=== PATIENT | female | born 1955 | race Caucasian/White ===

== ENCOUNTER 2022-10-05 12:19 | Outpatient (OUT) | payer BC, MEDICARE, SELFPAY ==
--- NOTE | 2022-10-05 12:35 | VEIN_ITS ---
[address] [address] Patient Name: SANDY BOBO MRN: [id number] date: 1955 Sex: F Assigned Patient Location: Current Patient Location: Accession/Order Number: [id number] Exam Date: 10/05/2022 12:30 Report Date: 10/05/2022 14:01 At the request of: PAPA HUNTER Procedure: VC Endovenous Ablation 1VeinRT EXAMINATION: VC Endovenous Ablation 1VeinRT HISTORY: Pain due to varicose veins of bilateral legs I83.813 The risks and benefits of the procedure had been previously discussed, and were rediscussed at length. Informed written consent was obtained. SIMBA Ford RDMS, RVT assisted. Time out procedure was performed. The right lower extremity was prepared and draped in the usual sterile fashion to allow knee flexion in the sterile field. Duplex ultrasound probe was draped in a sterile cover, sterile transmission gel was used. Venous mapping was performed with the areas of dilation and large tributaries marked. The total length was 42 cm from the entry 6 cm above the medial malleolus to 3 cm below the saphenofemoral junction. The diameter of the greater saphenous vein ranged from 7 mm. A 30 gauge needle and 1% buffered lidocaine was used to anesthetize the entry site. A 4 mm incision was made with a scalpel and the saphenous vein was entered percutaneously under direct ultrasound guidance with a micropuncture set, a single stick was successful in gaining access. A micro-guide wire was inserted and the needle removed. A micro-set including a dilator was inserted over the microwire and the needle and dilator were removed. A guide wire was inserted through the micro-set and guided through the saphenous vein to the saphenofemoral junction. The dilator was removed and an introducer sheath was inserted over the wire until the end of the sheath entered the saphenofemoral junction. The dilator and wire were removed and the 600 micron fiber was introduced and placed and positioned so that it extended beyond the sheath and was 3 cm distal to the saphenofemoral femoral junction. Final position of the fiber was determined by ultrasound guidance and duplex imaging. Tumescent anesthetic was delivered by ultrasound guidance. 300 cc of fluid was delivered along the entire course of the saphenous vein. The solution consisted of 1000 cc of normal saline with 40 mL of 1% lidocaine and 20 mL of sodium bicarbonate. A final positioning check was made. The energy source was turned on by means of the foot pedal and the fiber and sheath were withdrawn. The total number of Joules delivered was 2506. The laser was active for 313seconds under continuous pulse, average laser use of 8 J. Laser start time 1318 hours, 10/05/2022. Laser stop time 1326 hours, 10/05/2022. A duplex ultrasound revealed compressibility and flow at the saphenofemoral junction immediately after the procedure. Hemostasis at the access site was achieved. The skin incision of the saphenous vein was closed with a 4 x 4. A compression stocking was applied. Postop instructions were given. A follow up appointment was recommended and scheduled. The patient tolerated the procedure well. Electronically authenticated by: ASHLEY METZGER Date: 10/05/2022 14:01
[2022-10-05] MEDS: LIDOCAINE HCL 10 ML, SODIUM BICARBONATE 1 MEQ INJ (13:18)
[2022-10-05] MEDS: 0.9 % SODIUM CHLORIDE 500 ML, LIDOCAINE HCL 20 ML, SODIUM BICARBONATE 10 MEQ INJ (13:19)
== END 2022-10-05 12:20 ==
LOC: VC 12:19
PROVIDERS: PCP Radiology Diagnostic Radiology; Visit Provider Radiology Diagnostic Radiology
DX: I83.813 Varicose veins of bilateral lower extremities with pain (principal)
CPT/HCPCS: 36478

== ENCOUNTER 2022-10-12 12:27 | Outpatient (OUT) | payer BC, MEDICARE, SELFPAY ==
--- NOTE | 2022-10-12 12:32 | VEIN_ITS ---
Patient: SANDY BOBO Exam Date: 10/12/2022 : 1955 Gender:F Ordering : DR GOLDY LAZO M.D. Admission #: [id number] Family : Order #: [id number] CLICK HERE TO VIEW EXAM RADIOLOGY REPORT PROCEDURE: [facility] FACILITY EST LMTD VEIN CENTER - OFFICE VISIT FOLLOW UP COMPARISON: None. PROGRESS NOTES: The patient reports no significant problems following intravenous laser ablation of the right great saphenous vein. The patient did not require oral analgesics. The patient has worn her compression stockings. The patient has followed our recommendations to walk 20-30 minutes once or twice per day since the procedure. The patient reports significant improvement in her initial presenting symptoms with persistent pain anterior bilateral lower legs. Review of the ultrasound performed the same day demonstrates occlusive thrombus extending throughout the treated right great saphenous vein with heat induced thrombus 2 cm from the saphenofemoral junction, see separate report, consistent with a successful ablation. No thrombus extending into or beyond the saphenofemoral junction. The patient expressed a desire to take a pause for healing. The patient was asked to return in 2-3 months for re-evaluation of the right small saphenous vein and left anterior accessory saphenous vein. The patient's insurance declined treatment with micro foam chemical ablation as well as injection sclerotherapy at this time. IMPRESSION: 1. Successful ablation of the right great saphenous vein 2. Persistent incompetent right small saphenous vein and left anterior accessory saphenous vein 3. Persistent incompetent varicose veins PLAN: Follow-up in 2-3 months Nurse notes, history and physical were reviewed and confirmed, see attached forms. The nurse was present throughout the physical exam and consultation Dictated by: Goldy Lazo MD on 10/12/2022 at 13:04 Approved by: Goldy Lazo MD on 10/12/2022 at 13:10
--- NOTE | 2022-10-12 12:32 | VEIN_ITS ---
Patient: SANDY BOBO Exam Date: 10/12/2022 : 1955 Gender:F Ordering : DR GOLDY LAZO M.D. Admission #: [id number] Family : Order #: [id number] CLICK HERE TO VIEW EXAM RADIOLOGY REPORT PROCEDURE: VC EXT VENOUS RT LMTD COMPARISON: None. INDICATIONS: Phlebitis of superficial veins of rt lower extremity I80.01 TECHNIQUE: Lower extremity diop scale and Duplex Doppler evaluation of the deep venous system from the inguinal ligament through the calf veins. FINDINGS: REGION: Right lower extremity. THROMBI: Negative for DVT. Heat induced thrombus in right GSV 2.0 cm from SFJ and extends to proximal lower leg. COMPRESSIBILITY: Non-compressible segments. FLOW: Areas of no flow. *Exam performed in accordance with [facility] practice guidelines- Peripheral venous ultrasound, July 23, 2009. CONCLUSION: Post ablation occlusion of the right great saphenous vein with heat induced thrombus 2 cm from the saphenofemoral junction Dictated by: Goldy Lazo MD on 10/12/2022 at 12:55 Approved by: Goldy Lazo MD on 10/12/2022 at 12:56
== END 2022-10-12 12:28 ==
LOC: VC 12:27
PROVIDERS: PCP Radiology Diagnostic Radiology; Visit Provider Radiology Diagnostic Radiology
DX: I80.01 Phlebitis and thrombophlebitis of superficial vessels of right lower extremity (principal)
CPT/HCPCS: 93971; G0463

== ENCOUNTER 2023-08-26 12:59 | Outpatient (OUT) | payer MEDICARE, OTHER, SELFPAY ==
--- NOTE | 2023-08-26 13:10 | VEIN_ITS ---
Patient Name: SANDY BOBO MR#: [id number] : 1955 Exam Date: 08/26/2023 Ordering Doctor: DR PAPA HUNTER M.D. RADIOLOGY REPORT PROCEDURE: [facility] FACILITY EST COMPREHENSIVE VEIN CENTER - OFFICE VISIT INITIAL COMPARISON: None. PROGRESS NOTES: [age] year old female who presents with a 30 year history of dilated bulging veins, discolored veins, leg pain, swelling, muscle cramping. The patient's leg symptoms are symmetric bilaterally. There has been a progression of symptoms over time. This increases with prolonged leg dependency. The patient describes an improvement with rest, elevation, exercise, support stockings. The patient denies any signs and symptoms to suggest arterial ischemia. The patient describes a family history varicose veins on paternal side. The patient has drinking and smoking history of occasional alcohol consumption. No tobacco use. Patient has a past medical history significant for hypertension. The patient denies a history of deep venous thrombus or pulmonary embolus. See separate history and physical for medication list. Prior treatment for varicose veins. Current use of compression stockings. After review of nurse notes, history and physical exam I discussed at length the pathophysiology of venous hypertension and possible treatments, therapies and strategies available. We discussed at length the importance of elevating the lower extremities above the level of the heart, increased physical activity and compression stocking use. Ultrasound venous reflux study performed today was discussed at length with the patient. The report demonstrates abnormally dilated and incompetent right small saphenous vein and right anterior accessory saphenous vein with multiple incompetent branch saphenous varicosities. Prior closure of thigh portion of right great saphenous vein and the length of the left great saphenous vein. Dilated and incompetent branch saphenous varicosities bilaterally. PHYSICAL EXAM: The right leg demonstrates several varicosities, numerous spider veins, no ulceration, mild edema, minimal skin discoloration. The left leg demonstrates several varicosities, numerous spider veins, no ulceration, mild edema, minimal skin discoloration. Both thighs, legs and feet were symmetrically warm to the touch. Good posterior tibial and dorsalis pedis pulses were present bilaterally. VEIN/VC Facility EST Comprehensive IMPRESSION: 1. Bilateral lower extremity venous insufficiency 2. Bilateral lower extremity varicose veins 3. Mild bilateral lower extremity subcutaneous edema 4. No flow significant arterial disease 5. CEAP: C3, EC, AP, [place] PLAN: 1. Continued use of compression stockings 2. Elevated legs and increased physical activity symptomatic relief 3. Endovenous laser ablation of right small saphenous and right anterior accessory saphenous veins. 4. Microfoam chemical ablation of incompetent branch saphenous varicosities bilaterally. 5. Bilateral sclerotherapy for numerous spider veins. Nurse notes, history and physical were reviewed and confirmed, see attached forms. The nurse was present throughout the physical exam and consultation Dictated by: Waldemar Herrera M.D. on 08/26/2023 at 14:26 Approved by: Waldemar Herrera M.D. on 08/26/2023 at 14:31
--- NOTE | 2023-08-26 13:10 | VEIN_ITS ---
Patient Name: SANDY BOBO MR#: [id number] : 1955 Exam Date: 08/26/2023 Ordering Doctor: DR PAPA HUNTER M.D. RADIOLOGY REPORT PROCEDURE: VC EXT VENOUS REFLUX NERY LMTD COMPARISON: None. INDICATIONS: Pain due to varicose veins of bilateral legs I83.813 TECHNIQUE: Duplex imaging of the lower extremity to assess the deep and superficial venous system for the presence of deep or superficial venous incompetence and to document the location and severity of disease. The study includes evaluation of the great saphenous vein (GSV), anterior accessory saphenous vein (AASV) and small saphenous vein (SSV). Patient scanned in reverse Trendelenburg and standing. FINDINGS: RIGHT LOWER EXTREMITY: Saphenofemoral Junction Reflux: Yes 10.0mm 3.9 sec GSV: Diam (mm) Reflux/ Time (sec) Proximal Thigh 4.7 Yes 1.0 Mid Thigh N/A Distal Thigh N/A Prox Calf 3.2 Yes 4.1 Mid Calf 1.7 Yes 1.4 Saphenopopliteal Junction Reflux: 6.1mm Yes 0.6 SSV: Proximal Calf 5.5 Yes 3.1 Mid Calf 2.2 Yes 0.8 AASV: Proximal Thigh 6.3 Yes 1.3 Mid Thigh 2.5 Yes 0.6 Distal Thigh Thrombi: No acute or chronic thrombus. Compressibility: Normal. Flow: Mild deep venous reflux. Preforator: Prox medial lower leg 2.7 mm with 0.3s reflux. Distal medial lower leg 3.6 mm with 0.6s reflux. Tech Note: Previously treated GSV. Incompetent varicose vein proximal posterior calf off SSV 3.5 mm with 0.7s reflux. LEFT LOWER EXTREMITY: Saphenofemoral Junction Reflux: Yes 10.6 mm 1.9 sec GSV: Diam (mm) Reflux/Time (sec) Proximal Thigh 4.9 Yes 0.2 Mid Thigh N/A Distal Thigh N/A Prox Calf N/A Mid Calf N/A Saphenopopliteal Junction Relux: 6.2 mm Yes 1.8 SSV: Proximal Calf 2.8 Yes 0.3 Mid Calf 3.2 Yes 0.2 AASV: Proximal Thigh 4.6 Yes 0.3 Mid Thigh 3.1 Yes 2.2 Distal Thigh Thrombi: No acute or chronic thrombus. Compressibility: Normal. Flow: Mild-moderate deep venous reflux. Top Screw: Mid medial lower leg 4.2 mm with 4.9s reflux. Mid medial lower leg 4.3 mm with 3.4s reflux. Tech Note: Previously treated GSV. Incompetent varicose vein medial knee measures 4.5mm with 4.5s reflux. Varicose vein proximal medial lower leg measures 5.6 mm with 4.4s reflux. CONCLUSION: 1. Abnormally dilated incompetent right small saphenous and anterior accessory saphenous veins. 2. Dilated and incompetent branch saphenous varicosities within bilateral lower extremities. Dictated by: Waldemar Herrera M.D. on 08/26/2023 at 14:12 Approved by: Waldemar Herrera M.D. on 08/26/2023 at 14:26
== END 2023-08-26 13:00 | disposition home or self-care (01) ==
LOC: VC 13:00
PROVIDERS: PCP Radiology Diagnostic Radiology; Visit Provider Radiology Diagnostic Radiology
DX: I83.813 Varicose veins of bilateral lower extremities with pain (principal)
CPT/HCPCS: 93970; G0463

== ENCOUNTER 2023-09-06 10:28 | Outpatient (OUT) | payer MEDICARE, OTHER, SELFPAY ==
[2023-09-06] MEDS: LIDOCAINE HCL 1% 100 MG/10 ML MDV INJ (10:31)
[2023-09-06] MEDS: 0.9 % SODIUM CHLORIDE 500 ML, LIDOCAINE HCL 20 ML, SODIUM BICARBONATE 10 MEQ INJ (10:31)
--- NOTE | 2023-09-06 10:32 | VEIN_ITS ---
The [address] [address] Patient Name: SANDY BOBO MRN: [id number] date: 1955 Sex: F Assigned Patient Location: Current Patient Location: Accession/Order Number: [id number] Exam Date: 09/06/2023 10:37 Report Date: 09/06/2023 12:56 At the request of: PAPA HUNTER Procedure: VC Endovenous Ablation 1VeinRT EXAMINATION: VC Endovenous Ablation 1VeinRT HISTORY: I83.813 Pain due to varicose veins of bilateral legs The risks and benefits of the procedure had been previously discussed, and were rediscussed at length. Informed written consent was obtained. López Colvin RN and Ashlee Coon RDMS assisted. Time out procedure was performed. The right lower extremity was prepared and draped in the usual sterile fashion to allow knee flexion in the sterile field. Duplex ultrasound probe was draped in a sterile cover, sterile transmission gel was used. Venous mapping was performed with the areas of dilation and large tributaries marked. The total length was 20 cm from the entry 6 cm above the ankle to 4 cm below the Saphenofemoral junction. The diameter of the right small saphenous vein ranged from 5.5 mm. A 30 gauge needle and 1% buffered lidocaine was used to anesthetize the entry site. A 4 mm incision was made with a scalpel and the saphenous vein was entered percutaneously under direct ultrasound guidance with a micropuncture set, a single stick was successful in gaining access. A micro-guide wire was inserted and the needle removed. A micro-set including a dilator was inserted over the microwire and the needle and dilator were removed. A guide wire was inserted through the micro-set and guided through the saphenous vein to the saphenofemoral junction. The dilator was removed and an introducer sheath was inserted over the wire until the end of the sheath entered the saphenofemoral junction. The dilator and wire were removed and the 600 micron fiber was introduced and placed and positioned so that it extended beyond the sheath and was 3 cm distal to the saphenofemoral or saphenopopliteal junction. Final position of the fiber was determined by ultrasound guidance and duplex imaging. Tumescent anesthetic was delivered by ultrasound guidance. 125 cc of fluid was delivered along the entire course of the saphenous vein. The solution consisted of 1000 cc of normal saline with 40 mL of 1% lidocaine and 20 mL of sodium bicarbonate. A final positioning check was made. The energy source was turned on by means of the foot pedal and the fiber and sheath were withdrawn. The total number of Joules delivered was 1037. The laser was active for 130 seconds under continuous pulse, average laser use of 8 J. Laser start time: 11:12 AM Laser stop time: 11:15 AM Date: 09/06/2023. A duplex ultrasound revealed compressibility and flow at the saphenofemoral junction immediately after the procedure. Hemostasis at the access site was achieved. The skin incision of the saphenous vein was closed with a 4 x 4. A compression stocking was applied. Postop instructions were given. A follow up appointment was recommended and scheduled. The patient tolerated the procedure well. Electronically authenticated by: ASHLEY METZGER Date: 09/06/2023 12:56
--- OUTSIDE RECORDS SUMMARY | 2023-09-06 10:50 | XMS_ITS | CCD ---
Author Organization [facility] Care Team Providers Care 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 Name Role Phone ELSA, DR PAPA Agrawal Attending Unavailable WEST, DR PAPA Agrawal Admitting Unavailable WEST, DR PAPA Agrawal Attending Unavailable WEST, DR PAPA Agrawal Admitting Unavailable WEST, DR PAPA Agrawal Consulting Unavailable DOMENICA, DR WALDEMAR More Consulting Unavailable WEST, DR PAPA Agrawal Attending Unavailable WEST, DR PAPA Agrawal Admitting Unavailable WEST, DR PAPA Agrawal Consulting Unavailable WEST, DR PAPA Agrawal Attending Unavailable WEST, DR PAPA Agrawal Admitting Unavailable WEST, DR PAPA Agrawal Consulting Unavailable DOMENICA, DR WALDEMAR More Consulting Unavailable WEST, DR PAPA Agrawal Admitting Unavailable WEST, DR PAPA Agrawal Attending Unavailable Papa Whitehead MD Primary Care Provider PAPA WHITEHEAD Referring Unavailable DEFRANCE, PAPA Avila Primary Care Unavailable DEFBUTCH, PAPA Avila Attending Unavailable DEFBUTCH, PAPA Avila Referring Unavailable DEFRANCE, PAPA Avila Primary Care Unavailable DEFRANCE, PAPA Avila Attending Unavailable DEFBUTCH, PAPA Avila Referring Unavailable DEFRANCE, PAPA Avila Primary Care Unavailable Medications Current Medications Medication Drug Class(es) Dates Sig (Normalized) Sig (Original) amphetamine aspartate 2.5 mg / amphetamine sulfate 2.5 mg / dextroamphetamine saccharate 2.5 mg / dextroamphetamine sulfate 2.5 mg oral tablet (5 sources) Central Nervous System Stimulant Start: 06-14-2023 take 1 tablet by mouth once daily at bedtime dextroamphetamine- amphetamine (ADDERALL) 10 mg tablet Indications: Attention deficit hyperactivity disorder (ADHD), predominantly inattentive type Take 1 tablet (10 mg total) by mouth in the morning and at bedtime. Max Daily Amount: 20 mg 60 tablet 0 06/14/2023 Active Start: 04-05-2023 End: 06-14-2023 take 1 tablet by mouth once daily at bedtime dextroamphetamine-amphetamine (ADDERALL) 10 mg tablet Indications: Attention deficit hyperactivity disorder (ADHD), predominantly inattentive type Take 1 tablet (10 mg total) by mouth in the morning and at bedtime. Max Daily Amount: 20 mg 60 tablet 0 05/10/2023 06/14/2023 Discontinued (Reorder) betamethasone 0.5 mg/ml / clotrimazole 10 mg/ml topical cream (3 sources) Azole Antifungal, Corticosteroid Start: 01-14-2023 clotrimazole-betamethasone (LOTRISONE) cream Apply topically 2 (two) times a day. 30 g 4 01/14/2023 Active docosahexaenoic acid/epa (FISH OIL ORAL) (2 sources) docosahexaenoic acid/epa (FISH OIL ORAL) Take by mouth. 0 Active estrogens, conjugated (skilled nursing) 0.9 mg oral tablet (4 sources) Estrogen Start: 07-10-2023 take 1 tablet by mouth once daily in the morning PREMARIN 0.9 mg tablet take one tablet by mouth every morning 90 tablet 3 07/10/2023 Active Start: 01-14-2023 End: 07-10-2023 take 1 tablet by mouth in the morning estrogens, conjugated, (PREMARIN) 0.9 mg tablet Take 1 tablet (0.9 mg total) by mouth in the morning. 90 tablet 1 01/14/2023 07/10/2023 Discontinued gluc/chnd/om3/dha/epa/fish/s tr (GLUCOSAMINE CHONDROITIN PLUS ORAL) (2 sources) gluc/chnd/om3/dh a/epa/fish/str (GLUCOSAMINE CHONDROITIN PLUS ORAL) Take by mouth. 0 Active hydroCHLOROthiazide 25 mg / triamterene 37.5 mg oral capsule (3 sources) Potassium- sparing Diuretic, Thiazide Diuretic S t a r t : 1 2 - 1 4 - 2 0 2 3 take 1 capsule by mouth once daily in the morning triamterene-hydroCHLOROthiazide (DYAZIDE) 37.5-25 mg per capsule TAKE ONE CAPSULE BY MOUTH EVERY MORNING 90 capsule 1 04/11/2023 Active NON FORMULARY (2 sources) NON FORMULARY be rberine 0 Active pantoprazole 40 mg delayed release oral tablet (2 sources) Proton Pump Inhibitor S t a r t : 0 2 - 1 6 - 2 0 2 4 take 1 tablet by mouth in the morning pantoprazole (PROTONIX) 40 mg EC tablet Take 1 tablet (40 mg total) by mouth in the morning. 30 tablet 1 06/14/2023 Active tirzepatide, weight loss, (ZEPBOUND) 2.5 mg/0.5 mL pen injector (2 sources) S t a r t : 0 2 - 1 6 - 2 0 2 4 inject 2.5 mg by subcutaneous injection every week tirzepatide, weight loss, (ZEPBOUND) 2.5 mg/0.5 mL pen injector Indications: BMI 34.0-34.9,adult Inject 2.5 mg under the skin once a week. 2 mL 5 06/14/2023 Active Problems Active Problems Problem Classification Problem Date Documented Da te Episodic/Chronic Attention-deficit, conduct, and disruptive behavior disorders (2 sources) Attention deficit hyperactivity disorder, predominantly inattentive type; Translations: [Attention-deficit hyperactivity disorder, predominantly inattentive type] 05-10-2023 Chronic Attention-deficit, conduct, and disruptive behavior disorders (1 source) Attention-deficit hyperactivity disorder, predominantly inattentive type; Translations: [Attention-deficit hyperactivity disorder, predominantly inattentive type] Onset: 4 Chronic Essential hypertension (6 sources) Benign essential hypertension; Translations: [Essential (primary) hypertension] Onset: 8 11-27-2017 Chronic Other nutritional; endocrine; and metabolic disorders (4 sources) Body mass index 30+ - obesity; Translations: [Body mass index (BMI) 32.0-32.9, adult] Onset: 8 11-27-2017 Chronic Other nutritional; endocrine; and metabolic disorders (3 sources) Morbid obesity; Translations: [Morbid (severe) obesity due to excess calories] Onset: 3 05-24-2022 Chronic Other nutritional; endocrine; and metabolic disorders (2 sources) Body mass index (BMI) 34.0-34.9, adult; Translations: [Body mass index (BMI) 34.0-34.9, adult] Onset: 4 Chronic Other nutritional; endocrine; and metabolic disorders (1 source) Morbid (severe) obesity due to excess calories; Translations: [Morbid (severe) obesity due to excess calories] Onset: 3 Chronic Other skin disorders (1 source) Onycholysis; Translations: [Onycholysis] Onset: 4 Episodic Phlebitis; thrombophlebitis and thromboembolism (4 sources) Phlebitis and thrombophlebitis of superficial vessels of left lower extremity; Translations: [PHLEBITIS AND TP SUP VES LT LOW EXT] Onset: 3 Episodic Unclassified (1 source) Annual Exam Onset: 4 Varicose veins of lower extremity (4 sources) Varicose veins of bilateral lower extremities with pain; Translations: [VARICOSE VNS NERY LOW EXTREM W/PAIN] Onset: 3 Episodic Past or Other Problems Problem Classification Problem Date Documented Da te Episodic/Chronic Mood disorders (3 sources) Mood disorders Onset: 12-07-2022 Resolved: 06-14-2023 12-07-2022 Unclassified (3 sources) Onset: 01-26-2021 01-26-2021 Results Test Name Value Interpretation Reference Range Facil ity CBC AND AUTO DIFFon 06-18-19 ABSOLUTE BASOPHIL 0.0 X10E9/L Normal 0.0-0.2 [facility] Comment on above: Performed By: #### C BOLIVAR 02857-5, THYR, CBCA #### [facility] ([id number]) [address], [address] [place] [address] ABSOLUTE NEUTROPHIL 4.3 X10E9/L Normal 1.5-6.6 [facility] Comment on above: Performed By: #### Roberth LUTZ 32851-5, THYR, CBCA #### [facility] ([id number]) [address], [address] [place] [address] Basophils/100 WBC (Bld) 0.4 % Normal [facility] Comment on above: Performed By: #### C BOLIVAR, 44290-9, THYR, CBCA #### [facility] ([id number]) [address] [place] [address] Eosinophils (Bld) [#/Vol] 0.1 10*3/uL Normal 0.0-0.4 [facility] Comment on above: Performed By: #### C BOLIVAR 83365-9, THYR, CBCA #### [facility] ([id number]) [address], [address] [place] [address] Eosinophils/100 WBC (Bld) 1.3 % Normal [facility] Comment on above: Performed By: #### C BOLIVAR, 05494-3, THYR, CBCA #### [facility] ([id number]) [address], [facility] [address] [place] [address] Erythrocyte distribution width (RBC) [Ratio] 13.4 % Normal 11.5-15.0 [facility] Comment on above: Performed By: #### C BOLIVAR 43149-5, THYR, CBCA #### [facility] ([id number]) [address] [address] [place] [address] Hematocrit (Bld) [Volume fraction] 41.7 % Normal 35-47 [facility] Comment on above: Performed By: #### C BOLIVAR, 15500-8, THYR, CBCA #### [facility] ([id number]) [address], [facility] [address] [place] [address] Hemoglobin (Bld) [Mass/Vol] 14.1 g/dL Normal 11.7-15.5 [facility] Comment on above: Performed By: #### C BOLIVAR, 60648-7, THYR, CBCA #### [facility] ([id number]) [address], [facility] [address] [place] [address] Lymphocytes (Bld) [#/Vol] 3.4 10*3/uL Normal 1.0-3.5 [facility] Comment on above: Performed By: #### C BOLIVAR, 42295-8, THYR, CBCA #### [facility] ([id number]) [address] [address] [place] [address] Lymphocytes/100 WBC (Bld) 41.3 % Normal [facility] Comment on above: Performed By: #### C BOLIVAR, 39722-6, THYR, CBCA #### [facility] ([id number]) [address], [address] [place] [address] MCH (RBC) [Entitic mass] 28.5 pg Normal 27-34 [facility] Comment on above: Performed By: #### C BOLIVAR, 95381-3, THYR, CBCA #### [facility] ([id number]) [address], [address] [place] [address] MCHC (RBC) [Mass/Vol] 33.8 g/dL Normal 32-36 [facility] Comment on above: Performed By: #### C BOLIVAR, 44483-3, THYR, CBCA #### [facility] ([id number]) [address], [address] [place] [address] MCV (RBC) [Entitic vol] 84 fL Normal 80-100 [facility] Comment on above: Performed By: #### C BOLIVAR, 26523-3, THYR, CBCA #### [facility] ([id number]) [address], [address] [place] [address] Monocytes (Bld) [#/Vol] 0.4 10*3/uL Normal 0-0.9 [facility] Comment on above: Performed By: #### C BOLIVAR, 89946-9, THYR, CBCA #### [facility] ([id number]) [address], [address] [place] [address] Monocytes/100 WBC (Bld) 4.4 % Normal [facility] Comment on above: Performed By: #### C BOLIVAR, 80959-2, THYR, CBCA #### [facility] ([id number]) [address] [address] [place] [address] Neutrophils/100 WBC (Bld) 52.6 % Normal [facility] Comment on above: Performed By: #### C BOLIVAR, 22630-9, THYR, CBCA #### [facility] ([id number]) [address], [address] [place] [address] Platelet mean volume (Bld) [Entitic vol] 7.8 fL Normal 7-12 [facility] Comment on above: Performed By: #### C BOLIVAR, 28714-0, THYR, CBCA #### [facility] ([id number]) [address], [address] [place] [address] Platelets (Bld) [#/Vol] 292 10*3/uL Normal 150-450 [facility] Comment on above: Performed By: #### C BOLIVAR, 90046-0, THYR, CBCA #### [facility] ([id number]) [address], [address] [place] [address] RBC COUNT 4.94 X10E12/L Normal 3.80-5.20 [facility] Comment on above: Performed By: #### C BOLIVAR, 53281-6, THYR, CBCA #### [facility] ([id number]) [address], [address] [place] [address] WBC (Bld) [#/Vol] 8.2 10*3/uL Normal 4.0-11.0 [facility] Comment on above: Performed By: #### C BOLIVAR, 21091-6, THYR, CBCA #### [facility] ([id number]) [address], [address] [place] [address] COMPREHENSIVE METABOLIC PANE Willie 06-18-2023 Albumin [Mass/Vol] 4.1 g/dL Normal 3.2-5.3 [facility] Comment on above: Performed By: #### C BOLIVAR, 35633-3, THYR, CBCA #### [facility] ([id number]) [address] [address] [place] [address] ALP [Catalytic activity/Vol] 110 U/L Normal 39-130 [facility] Comment on above: Performed By: #### C BOLIVAR, 32357-8, THYR, CBCA #### [facility] ([id number]) [address], [address] [place] [address] ALT [Catalytic activity/Vol] 15 U/L Normal 0-31 [facility] Comment on above: Performed By: #### C BOLIVAR, 97354-3, THYR, CBCA #### [facility] ([id number]) [address], [address] [place] [address] Anion gap [Moles/Vol] 9 mmol/L Normal 5-15 [facility] Comment on above: Performed By: #### C BOLIVAR, 91691-2, THYR, CBCA #### [facility] ([id number]) [address], [address] [place] [address] AST [Catalytic activity/Vol] 15 U/L Normal 0-41 [facility] Comment on above: Performed By: #### C BOLIVAR, 95700-3, THYR, CBCA #### [facility] ([id number]) [address], [address] [place] [address] Bilirubin [Mass/Vol] 0.6 mg/dL Normal 0.3-1.2 [facility] Comment on above: Performed By: #### C BOLIVAR, 10377-3, THYR, CBCA #### [facility] ([id number]) [address], [address] [place] [address] Calcium [Mass/Vol] 8.8 mg/dL Normal 8.5-10.5 [facility] Comment on above: Performed By: #### C BOLIVAR, 64254-4, THYR, CBCA #### [facility] ([id number]) [address], [address] [place] [address] Chloride [Moles/Vol] 104 mmol/L Normal 98-109 [facility] Comment on above: Performed By: #### C BOLIVAR 35460-1, THYR, CBCA #### [facility] ([id number]) [address] [address] [place] [address] CO2 [Moles/Vol] 28 mmol/L Normal 22-32 [facility] Comment on above: Performed By: #### C BOLIVAR 63270-1, THYR, CBCA #### [facility] ([id number]) [address] [address] [place] [address] Creatinine [Mass/Vol] 0.66 mg/dL Normal 0.40-1.00 [facility] Comment on above: Result Comment: METH OD TRACEABLE TO IDMS STANDARD Performed By: #### C BOLIVAR 40710-6, THYR, CBCA #### [facility] ([id number]) [address] [address] [place] [address] eGFR (CKD-EPI) NON-RACE DEPENDENT >90 Normal >59 [facility] Comment on above: Result Comment: Reported eGFR is based on the CKD-EPI 2020 equation that does not use a race coefficient. Performed By: #### Roberth LUTZ 62131-4, THYR, CBCA #### [facility] ([id number]) [address] [address] [place] [address] Glucose [Mass/Vol] 100 mg/dL High 65-99 [facility] Comment on above: Performed By: #### C BOLIVAR 28569-8, THYR, CBCA #### [facility] ([id number]) [address] [address] [place] [address] Potassium [Moles/Vol] 3.8 mmol/L Normal 3.5-5.0 [facility] Comment on above: Performed By: #### C BOLIVAR 27781-7, THYR, CBCA #### [facility] ([id number]) [address], [address] [place] [address] Protein [Mass/Vol] 7.0 g/dL Normal 6.0-8.0 [facility] Comment on above: Performed By: #### C BOLIVAR 00521-4, THYR, CBCA #### [facility] ([id number]) [address], [address] [place] [address] Sodium [Moles/Vol] 141 mmol/L Normal 134-146 [facility] Comment on above: Performed By: #### Roberth LUTZ 66742-2, THYR, CBCA #### [facility] ([id number]) [address], [facility] [address] [place] [address] Urea nitrogen [Mass/Vol] 15 mg/dL Normal 5-27 [facility] Comment on above: Performed By: #### Roberth LUTZ 55442-1, THYR, CBCA #### [facility] ([id number]) [address], [address] [place] [address] Lipid 1996 panelon 4 Cholesterol [Mass/Vol] 151 mg/dL Normal 150-200 [facility] Comment on above: Performed By: #### Roberth LUTZ 91100-9, THYR, CBCA #### [facility] ([id number]) [address], [address] [place] [address] Cholesterol in HDL [Mass/Vol] 68 mg/dL Normal >39 [facility] Comment on above: Result Comment: HDL <40 mg/dL - High Risk HDL > or = 40mg/dL- Desirable HDL >60 mg/dL - Negative Risk Performed By: #### C BOLIVAR, 16203-7, THYR, CBCA #### [facility] ([id number]) [address], [address] [place] [address] Cholesterol in LDL [Mass/Vol] 52 mg/dL Normal <130 [facility] Comment on above: Result Comment: LDL <100 mg/dL - Desirable LDL >160 mg/dL - High Risk Performed By: #### C BOLIVAR 43165-7, THYR, CBCA #### [facility] ([id number]) [address] [address] [place] [address] Cholesterol in VLDL [Mass/Vol] 31 mg/dL High 0-30 [facility] Comment on above: Performed By: #### C BOLIVAR 76980-1, THYR, CBCA #### [facility] ([id number]) [address], [facility] [address] [place] [address] CHOLESTEROL:HDL 2.2 Normal 1.0-5.0 [facility] Comment on above: Performed By: #### C BOLIVAR, 37540-2, THYR, CBCA #### [facility] ([id number]) [address], [facility] [address] [place] [address] Triglyceride [Mass/Vol] 157 mg/dL High 27-150 [facility] Comment on above: Performed By: #### C BOLIVAR 27649-6, THYR, CBCA #### [facility] ([id number]) [address], [facility] [address] [place] [address] THYROID PROFILEon 06-18-2023 Free T4 [Mass/Vol] 0.85 ng/dL Normal 0.61-1.60 [facility] Comment on above: Performed By: #### C BOLIVAR 62438-1, THYR, CBCA #### [facility] ([id number]) [address] [address] [place] [address] TSH 2.32 uIU/mL Normal 0.49-4.67 [facility] Comment on above: Performed By: #### C BOLIVAR 08523-5, THYR, CBCA #### [facility] ([id number]) [address] [place] [address] VC CONSULT FOLLOWUPon 2022 VC CONSULT FOLLOWUP Patient: SARA MALDONADO I Exam Date: 09/06/2022 : 1955 Gender:F Ordering : DR PAPA HUNTER M.D. Admission #: [id number] Family : Order #: [id number] CLICK HERE TO VIEW EXAM RADIOLOGY REPORT PROCEDURE: VEIN CENTER CONSULTATION FOLLOWUP VEIN CENTER - OFFICE VISIT FOLLOW UP COMPARISON: None. PROGRESS NOTES: The patient reports improvement in leg symptoms. There has been interval reduction in varicosities. The patient has followed our recommendations to walk 20-30 minutes once or twice per day since the procedure. Physical exam demonstrates decrease in varicosities of the left leg. Persistent varicosities are identified along the legs bilaterally. Review of the ultrasound performed the same day demonstrates occlusive thrombus extending throughout the treated vein, see separate report, consistent with a successful ablation. No thrombus extending into or beyond the saphenofemoral junction. The patient expressed a desire to proceed with treatment of remaining incompetent veins. The patient was informed that treatment was a process and would require several procedures/sessions. IMPRESSION: 1. Successful ablation of the left great saphenous vein 2. Persistent incompetent, dilated veins and bilateral lower extremity symptoms PLAN: Endovenous laser ablation of right great saphenous vein. Nurse notes, history and physical were reviewed and confirmed, see attached forms. The nurse was present throughout the physical exam and consultation Dictated by: Waldemar Herrera M.D. on 09/06/2022 at 14:36 Approved by: Waldemar Herrera M.D. on 09/06/2022 at 14:53 Normal [facility] VC EXT VENOUS LT LIMITEDon 0 09-06-2022 VC EXT VENOUS LT LIMITED Patient: SANDY MALDONADO Exam Date: 09/06/2022 : 1955 Gender:F Ordering : DR PAPA HUNTER M.D. Admission #: [id number] Family : Order #: [id number] CLICK HERE TO VIEW EXAM RADIOLOGY REPORT PROCEDURE: VEIN CENTER EXTREMITY VENOUS LEFT LIMITED COMPARISON: None. INDICATIONS: Phlebitis of superficial veins of lower extremity I80.02 TECHNIQUE: Lower extremity diop scale and Duplex Doppler evaluation of the deep venous system from the inguinal ligament through the calf veins. FINDINGS: REGION: Left lower extremity. THROMBI: Negative for DVT. Heat induced thrombus visualized 1.3 cm from the SFJ. The heat induced thrombus extends from groin to distal thigh. COMPRESSIBILITY: Non-compressible segments. FLOW: Areas of no flow. OTHER: CONCLUSION: 1. Successful post ablation occlusion of left great saphenous vein. Dictated by: Waldemar Herrera M.D. on 09/06/2022 at 14:58 Approved by: Waldemar Herrera M.D. on 09/06/2022 at 15:02 Normal [facility] VC ENDOVENOUS ABL 1ST V LTon 08-31-2022 VC ENDOVENOUS ABL 1ST V LT Patient: SANDY MALDONADO Exam Date: 08/31/2022 : 1955 Gender:F Ordering : DR PAPA HUNTER M.D. Admission #: [id number] Family : Order #: [id number] CLICK HERE TO VIEW EXAM RADIOLOGY REPORT PROCEDURE: VEIN CENTER ENDOVENOUS ABLATION FIRST VEIN LEFT COMPARISON: VC VENOUS REFLUX NERY LMT, 07/06/2022. INDICATIONS: Pain co-occurrent and due to varicose veins of bilateral legs I83.813 OPERATIVE REPORT: The risks and benefits of the procedure had been previously discussed, and were rediscussed at length. Informed written consent was obtained by nj and López Colvin assisted. Time out procedure was performed. The left lower extremity was prepared and draped in the usual sterile fashion to allow knee flexion in the sterile field. Duplex ultrasound probe was draped in a sterile cover, sterile transmission gel was used. Venous mapping was performed with the areas of dilation and large tributaries marked. The total length was 32 cm from the entry distal to 3 cm below the saphenofemoral junction. The diameter of the greater saphenous vein ranged from 9 mm. A 30 gauge needle and 1% buffered lidocaine was used to anesthetize the entry site. A 4 mm incision was made with a scalpel and the saphenous vein was entered percutaneously under direct ultrasound guidance with a micropuncture set, a single stick was successful in gaining access. A micro-guide wire was inserted and the needle removed. A micro-set including a dilator was inserted over the microwire and the needle and dilator were removed. A 0.018 guide wire was inserted through the micro-set and threaded through the saphenous vein to the saphenofemoral junction. The dilator was removed and an introducer sheath was inserted over the wire until the end of the sheath entered the saphenofemoral junction. The dilator and wire were removed and the 600 micron fiber was introduced and placed and positioned so that it extended beyond the sheath and was 3 cm peripheral to the saphenofemoral femoral junction. Final position of the fiber was determined by ultrasound guidance and duplex imaging. Tumescent anesthetic was delivered by ultrasound guidance. Two hundred cc of fluid was delivered along the entire course of the saphenous vein. The solution consisted of 500 cc of normal saline with 20mL of 1% lidocaine and 10 mL of sodium bicarbonate. A final positioning check was made. The energy source was turned on by means of the foot pedal and the fiber and sheath were withdrawn. The total number of Joules delivered was 1842. The laser was active for 230 seconds under continuous pulse, average laser use of 8 J. Laser start time 1:48 p.m. August 31, 2022. Laser stop time 1:53 p.m. August 31, 2022. A duplex ultrasound revealed compressibility and flow at the saphenofemoral junction immediately after the procedure. Hemostasis at the access site was achieved. The skin incision of the saphenous vein was closed with a 4 x 4. A compression stocking was applied. Postop instructions were given. A follow up appointment was recommended and scheduled. The patient tolerated the procedure well and was discharged in good condition. CONCLUSION: 1. Technically successful endovenous laser ablation of the left great saphenous vein. Dictated by: Waldemar Herrera M.D. on 08/31/2022 at 14:39 Approved by: Waldemar Herrera M.D. on 08/31/2022 at 14:41 [facility] VC COMP CONSULTATIONon 07-06 VC COMP CONSULTATION Patient: DO CHRISTIAN MALDONADO Exam Date: 07/06/2022 : 1955 Gender:F Ordering : DR PAPA HUNTER M.D. Admission #: [id number] Family : Order #: [id number] CLICK HERE TO VIEW EXAM RADIOLOGY REPORT PROCEDURE: VC VEIN CENTER CONSULTATION VEIN CENTER - OFFICE VISIT INITIAL COMPARISON: None. PROGRESS NOTES: 66-year-old female who presents with a 4-5 year history lower extremity pain swelling and varicose veins. The patient rates pain as a 6 on a scale of 1-10. The patient describes the pain as aching heaviness itching. The patient's pain is exacerbated by prolonged sitting and partially relieved by rest, leg elevation, exercise, support stockings and over the counter Tylenol. The patient has worn stockings for several years. 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 This standing significantly exacerbates her pain and edema. The patient does exercise doing spin classes 3 times per week. The patient denies any signs and symptoms to suggest arterial ischemia. The patient describes a family history of varicose veins father and paternal grandmother. Hypertension, heart disease and stroke in her father. , 8 grandkids. Social alcohol, no smoking history, no illicit drug abuse. No history of deep venous thrombus or pulmonary embolus. See separate history and physical for medication list. Prior injection sclerotherapy for spider veins. Nursing notes were reviewed. After review of history and physical exam I discussed at length the pathophysiology of venous hypertension and possible treatments, therapies and strategies available. We discussed at length the importance of elevating the lower extremities above the level of the heart, increased physical activity and compression stocking use. Ultrasound venous reflux study performed the same day was discussed at length with the patient. The report demonstrates moderate to severe bilateral great saphenous vein, moderate right small and left anterior accessory saphenous vein insufficiency and dilatation. Bilateral incompetent varicose veins. PHYSICAL EXAM: The right leg demonstrates moderate varicose, reticular and spider veins. No active ulceration. Mild subcutaneous edema, no skin discoloration. The left leg demonstrates moderate varicose, reticular and spider veins. No active ulceration. Mild subcutaneous edema, no skin discoloration. Both thighs, legs and feet were symmetrically warm to the touch. Good posterior tibial and dorsalis pedis pulses were present bilaterally. IMPRESSION: 1. Bilateral great, right small and left anterior accessory saphenous vein venous insufficiency 2. Moderate bilateral lower extremity varicose veins 3. Mild bilateral lower extremity subcutaneous edema 4. No definite flow significant arterial disease 5. CEAP: C3, Ep, Asp, Pr PLAN: 1. Endovenous laser ablation left great, right great, right small and left anterior accessory saphenous veins 2. Bilateral microfoam chemical ablation of incompetent varicose veins 3. [facility] use of continued use of compression stockings 4. Elevated legs and increased physical activity for symptomatic relief Nurse notes, history and physical were reviewed and confirmed, see attached forms. The nurse was present throughout the physical exam and consultation Dictated by: Papa Hunter MD on 07/06/2022 at 12:57 Approved by: Papa Hunter MD on 07/06/2022 at 13:14 [facility] VC VENOUS REFLUX NERY LMTon 0 07-06-2022 VC VENOUS REFLUX NERY LMT Patient: SANDY MALDONADO Exam Date: 07/06/2022 : 1955 Gender:F Ordering : DR PAPA HUNTER M.D. Admission #: [id number] Family : Order #: [id number] CLICK HERE TO VIEW EXAM RADIOLOGY REPORT PROCEDURE: VEIN CENTER ULTRASOUND VENOUS REFLUX BILATERAL LIMTED COMPARISON: None. INDICATIONS: Pain co-occurrent and due to varicose veins of bilateral legs I83.813 TECHNIQUE: Duplex imaging of the lower extremity to assess the deep and superficial venous system for the presence of deep or superficial venous incompetence and to document the location and severity of disease. The study includes evaluation of the great saphenous vein (GSV), anterior accessory saphenous vein (AASV) and small saphenous vein (SSV). Patient scanned in reverse Trendelenburg and standing. FINDINGS: RIGHT LOWER EXTREMITY: Saphenofemoral Junction Reflux: Yes 9.1mm 4.8 sec GSV: Diam (mm) Reflux/ Time (sec) Proximal Thigh 7.2 Yes 1.2 Mid Thigh 6.5 Yes 0.5 Distal Thigh 5.5 Yes 0.8 Prox Calf 4.1 Yes 4.6 Mid Calf 3.1 Yes 1.0 Saphenopopliteal Junction Reflux: 6.2mm Yes 0.5 SSV: Proximal Calf 5.8 Yes 1.1 Mid Calf 3.9 Yes 2.1 AASV: Not present Thrombi: No acute or chronic thrombus. Compressibility: Normal. Flow: Deep venous reflux. Preforator: Distal/med lower leg 4.1 mm with 1.2s reflux. Prox/med calf 3.6 mm with 0.7s reflux. Tech Note: Incompetent varicose vein mid anterior thigh off GSV measures 3.5 mm with 0.5s reflux. Proximal medial lower leg varicosity measures 4.7 mm with 3.3s reflux. LEFT LOWER EXTREMITY: Saphenofemoral Junction Reflux: Yes 10.5 mm 3.0 sec GSV: Diam (mm) Reflux/Time (sec) Proximal Thigh 9.1 Yes 1.4 Mid Thigh 7.7 Yes 1.5 Distal Thigh 5.5 Yes 4.1 Prox Calf 3.1 Yes 0.4 Mid Calf 4.3 Yes 0.9 Saphenopopliteal Junction Relux: 4.0 mm Yes 0.3 SSV: Proximal Calf 3.1 No Mid Calf 2.9 Yes 0.2 AASV: Proximal Thigh 5.5 Yes 3.0 Mid Thigh 2.7 Yes 1.3 Distal Thigh Thrombi: No acute or chronic thrombus. Compressibility: Normal. Flow: Deep venous reflux. Service Parts Coordinator: Mid medial lower leg 4.7 mm with 4.7s reflux. Dist medial lower leg 4.2 mm with 4.7s reflux. Tech Note: Incompetent varicose vein proximal/medial lower leg measures 6.1 mm with 4.8s reflux. Distal medial thigh varicose vein measures 4.9 mm with 4.9s reflux. Distal anterior thigh varicose vein measures 3.4 mm with 4.4s reflux. CONCLUSION: 1. Moderate to severe bilateral great saphenous vein venous insufficiency with associated dilatation, left greater than right 2. Moderate right small saphenous and left anterior accessory saphenous vein venous insufficiency with associated dilatation 3. Bilateral incompetent varicose veins Dictated by: Papa Hunter MD on 07/06/2022 at 12:38 Approved by: Papa Hunter MD on 07/06/2022 at 12:40 [facility] Vital Signs Date Time Vital Sign Value Performing Clinician Facility 06-14-2023 [id number] Body height 161.3 cm Papa Whitehead MD Work Phone: [facility] 06-14-2023 09:11-0500 Body mass index (BMI) [Ratio] 34 kg/m2 Papa Whitehead MD Work Phone: [facility] 06-14-2023 09:11-0500 Body temperature 96.49 [degF] Papa Whitehead MD Work Phone: [facility] 06-14-2023 09:11-0500 Body weight 88.45 kg Papa Whitehead MD Work Phone: [facility] 06-14-2023 09:11-0500 Diastolic blood pressure 88 mm[Hg] Papa Whitehead MD Work Phone: [facility] 06-14-2023 09:11-0500 Heart rate 80 /min Papa Whitehead MD Work Phone: [facility] 06-14-2023 09:11-0500 Respiratory rate 16 /min Papa Whitehead MD Work Phone: [facility] 06-14-2023 09:11-0500 Systolic blood pressure 130 mm[Hg] Papa Whitehead MD Work Phone: [facility] Encounters Encounter Date Encounter Type Care Provider Facility Start: 08-13-2023 End: 08-13-2023 ambulatory [facility] Start: 07-10-2023 Refjing Claudio Work Phone: [facility] Start: 06-18-2023 End: 06-19-2023 ambulatory [facility] Start: 06-14-2023 End: 06-14-2023 ambulatory [facility] Start: 06-14-2023 Encounter for genera l adult medical examination without abnormal findings [facility] Start: 06-14-2023 End: 06-14-2023 Patient encounter procedure Papa Whitehead MD Work Phone: [facility] Comment on above: Routine general medi rajat examination at a health care facility (Primary Dx); Attention deficit hyperactivity disorder (ADHD), predominantly inattentive type; Essential hypertension, benign; BMI 34.0-34.9,adult Start: 06-14-2023 End: 06-14-2023 Patient encounter status Papa Whitehead MD Work Phone: [facility] Work Phone: Start: 05-10-2023 Refill Papa hackett MD Work Phone: [facility] Comment on above: Attention deficit hy peractivity disorder (ADHD), predominantly inattentive type Start: 10-12-[address] PAPA HUNTER Facilit y:[facility] Start: 10-05-[address] PAPA HUNTER Facilit y:[facility] Start: 09-06-2022 End: 09-07-[address] PAPA HUNTER Facility:[facility] Start: 08-31-2022 End: 09-01-[address] PAPA HUNTER Facility:[facility] Start: 07-06-2022 End: 07-07-[address] PAPA HUNTER Facility:[facility] Procedures Date Procedure Procedure Detail Performing Clinician Start: 08-13-2023 Follow-up visit Follow-up PAPA WHITEHEAD Start: 06-14-2023 Adult depression scr eening assessment Papa Whitehead MD Work Phone: Start: 12-07-2022 Adult depression scr eening assessment Papa Whitehead MD Work Phone: Start: 03-03-2010 Colonoscopy Papa balderrama MD Work Phone: Plan of Treatment Date Care Activity Detail Author Start: 06-14-2024 Adult BMI Screening Adult BMI Screen ing [facility] Start: 06-14-2024 Depression Screening Depression Scre ening [facility] Start: 06-14-2024 Fall Risk Screening Fall Risk Screen ing [facility] Start: 06-14-2024 Medicare Annual Well ness Visit Medicare Annual Wellness Visit [facility] Start: 06-14-2024 Tobacco Screening Tobacco Screening [facility] Start: 03-11-2024 Adult BMI Screening Adult BMI Screen ing [facility] Start: 12-08-2023 Depression Screening Depression Scre ening [facility] Start: 12-08-2023 Fall Risk Screening Fall Risk Screen ing [facility] Start: 12-08-2023 Tobacco Screening Tobacco Screening [facility] Start: 08-13-2023 End: 08-13-2023 Patient encounter procedure 08/13/2023 9:15 AM EDT Office Visit [facility] [address] [place] [address] Papa Whitehead MD [address] [place], [place] [id number] [facility] Start: 06-14-2023 End: 06-13-2024 CBC W Auto Differential panel - Blood CBC auto differential Lab Routine Essential hypertension, benign BMI 34.0-34.9,adult Expected: 06/14/2023, Expires: 06/13/2024 [facility] Work Phone: Comment on above: Expected: 06/14/2023 , Expires: 06/13/2024 Start: 06-14-2023 End: 06-13-2024 Comprehensive metabolic 2000 panel - Serum or Plasma Comprehensive metabolic panel Lab Routine Essential hypertension, benign BMI 34.0-34.9,adult Expected: 06/14/2023, Expires: 06/13/2024 [facility] Comment on above: Expected: 06/14/2023 , Expires: 06/13/2024 Start: 06-14-2023 End: 06-13-2024 Lipid 1996 panel - Serum or Plasma Lipid profile Lab Routine Essential hypertension, benign BMI 34.0-34.9,adult Expected: 06/14/2023, Expires: 06/13/2024 [facility] Comment on above: Expected: 06/14/2023 , Expires: 06/13/2024 Start: 06-14-2023 End: 06-13-2024 Thyroid profile includes TSH FT4 Thyroid profile includes TSH FT4 Lab Routine Essential hypertension, benign BMI 34.0-34.9,adult Expected: 06/14/2023, Expires: 06/13/2024 [facility] Comment on above: Expected: 06/14/2023 , Expires: 06/13/2024 Start: 06-14-2023 End: 06-14-2023 Patient encounter procedure 06/14/2023 9:15 AM EST Office Visit [facility] [address] [place] [address] Papa Whitehead MD [address] [place] [address] [facility] Start: 12-28-2022 COVID-19 Vaccine ( season) COVID-19 Vaccine ( season) [facility] Start: 03-18-2022 DTaP,Tdap and Td Vaccines (2 - Td or Tdap) DTaP,Tdap and Td Vaccines (2 - Td or Tdap) [facility] Start: 03-03-2015 Screening for malign ant neoplasm of colon Colonoscopy [facility] Start: 12-23-2005 Administration of varicella zoster vaccine Zoster (Shingles) Vaccine (1 of 2) [facility] Start: 12-23-1973 Adult BMI Follow Up Plan Adult BMI Follow Up Plan [facility] Start: 1955 Medicare Annual Well ness Visit Medicare Annual Wellness Visit [facility] Immunizations Immunization Date Immunization Notes Care Provider Fa [facility] 02-05-2023 Influenza, injectabl e, Madin Hien Canine Kidney, preservative free, quadrivalent Papa Whitehead MD Work Phone: [facility] 01-19-2022 Influenza, injectabl e, Madin Hien Canine Kidney, preservative free, quadrivalent Papa Whitehead MD Work Phone: [facility] 01-18-2021 influenza, injectabl e, quadrivalent, preservative free Papa Whitehead MD Work Phone: [facility] 05-26-2020 COVID-19, mRNA, LNP- S, PF, 100mcg/0.5mL Dose Papa Whitehead MD Work Phone: [facility] 04-28-2020 COVID-19, mRNA, LNP- S, PF, 100mcg/0.5mL Dose Papa Whitehead MD Work Phone: [facility] 01-26-2020 Seasonal, quadrivale nt, recombinant, injectable influenza vaccine, preservative free Papa Whitehead MD Work Phone: [facility] 02-06-2018 influenza virus vacc ine, unspecified formulation Papa Whitehead MD Work Phone: [facility] 02-06-2018 influenza, injectabl e, quadrivalent, preservative free Papa Whitehead MD Work Phone: [facility] 02-24-2014 influenza virus vacc ine, unspecified formulation Papa Whitehead MD Work Phone: [facility] 02-24-2014 influenza, injectabl e, quadrivalent, contains preservative Papa Whitehead MD Work Phone: [facility] 03-18-2012 influenza virus vacc ine, unspecified formulation Papa Whitehead MD Work Phone: [facility] 03-18-2012 influenza, seasonal, injectable Papa Whitehead MD Work Phone: [facility] 03-18-2012 tetanus toxoid, redu tran diphtheria toxoid, and acellular pertussis vaccine, adsorbed Papa Whitehead MD Work Phone: [facility] 04-27-2009 novel influenza-H1N1 -09, all formulations Papa Whitehead MD Work Phone: [facility] 04-27-2009 novel influenza-H1N1 -09, preservative-free, injectable Papa Whitehead MD Work Phone: [facility] 02-22-2009 novel influenza-H1N1 -09, all formulations Papa Whitehead MD Work Phone: [facility] 02-22-2009 novel Influenza-H1N1 -09, live virus for nasal administration Papa Whitehead MD Work Phone: [facility] Payers Date Payer Category Payer Private Health Insurance [facility] SUPPLEMENT [id number] 2023-Present [phone] [id number] [place] [address] [id number] 2023 Unknown [id number] 2021 Medicare MEDICARE MEDICAR E PART A & B [id number] 2021-Present [phone] [address] [place] [address] [id number] 1959 Medicare [id number] 1959 Unknown [id number] 1955 Unknown [id number] 1955 Unknown [id number] 1955 Unknown [id number] 1955 Unknown [id number] 1955 Unknown [id number] 1955 Unknown [id number] 1955 Unknown [id number] 1955 Unknown [id number] Social History Date Type Detail Facility Start: 04-13-2022 Tobacco smoking status NHIS Ex-smoker [facility] End: 04-29-1969 [facility] use [facility] End: 04-29-1969 History of tobacco use [facility] Start: 04-13-2022 End: 06-14-2023 Cigarettes smoked current (pack per day) [facility] Start: 04-13-2022 Tobacco use and exposure Smokeless tobacco [facility] Start: 03-11-2023 End: 06-14-2023 Alcohol intake Current drinker of alcohol (finding) [facility] Start: 04-13-2022 End: 06-14-2023 Social connection and isolation panel [facility] Do you belong to any clubs or organizations such as uatsdin groups, unions, fraternal or athletic groups, or school groups? Yes [facility] Are you now , , , , never or living with a partner? [facility] How often to you hav e a drink containing alcohol? 2-4 times a month [facility] How many standard dr inks containing alcohol do you have on a typical day? 1 or 2 [facility] How often do you hav e 6 or more drinks on 1 occasion? Never [facility] How hard is it for y ou to pay for the very basics like food, housing, medical care, and heating Not hard at all [facility] Do you feel stress - tense, restless, nervous, or anxious, or unable to sleep at night because your mind is troubled all the time - these days [OSQ] Only a little [facility] Start: 12-13-2020 Education 18 [facility] Start: 1955 Sex Assigned At Female [facility] Start: 01-29-2022 Gender identity Identifies as female gender (finding) [facility] Start: 01-29-2022 Sexual orientation Heterosexual (finding) [facility] Note 07-10-2023 Telephone Encounter - Corina Medrano LPN - 07/10/2023 6:23 AM EDT Note Date & Type Note Facility 07-10-2023 Miscellaneous Notes Formattin g of this note might be different from the original. Raymon requesting refill of Premarin documented in this encounter [facility] Telephone encounter Note 07-10-2023 Telephone Encounter - Corina Medrano LPN - 07/10/2023 6:23 AM EDT Note Date & Type Note Facility 07-10-2023 Telephone encount er Note [facility] requesting refill of Premarin [facility] History of Present illness Narrative 06-14-2023 Papa Whitehead MD - 06/14/2023 9:15 AM EST Note Date & Type Note Facility 06-14-2023 History of Present illness Narrative Images from the original note were not included. [id number] [facility] [address] Subjective: Sandy Maldonado is a 67 y.o. female who presents for a Medicare Annual Wellness exam. The following portions of the patient's history were reviewed and updated as appropriate: Health Risk Assessment, allergies, past medical history, past surgical history, social history, family history, and immunization history Accompanied by: self History Provided By: self Language and Other Communication Barriers: Primary Language Spoken: Honduran Highest Level of Education Completed: college graduate Are You Happy With How Well You Read? yes Diet and Physical Activity: Current Prescribed Diet: Other: reducing How would you describe the condition of your mouth and teeth, including false teeth and dentures? Good Exercise Frequency: Daily Types of Exercise: Walking Health Risk Assessment: Cognitive Screening Do you have trouble remembering or recalling facts or events?: (!) Yes Do family members or caregivers report that you have difficulty remembering things?: No Depression Screening Little interest or pleasure in doing things: Not at all Feeling down, depressed, or hopeless: Not at all Trouble falling or staying asleep, or sleeping too much: Not at all Feeling tired or having little energy: Not at all Poor appetite or overeating: Not at all Feeling bad about yourself - or that you are a failure or have let yourself or your family down: Not at all Trouble concentrating on things, such as reading the newspaper or watching television: Not at all Moving or speaking so slowly that other people could have noticed. Or the opposite - being so fidgety or restless that you have been moving around a lot more than usual: Not at all Thoughts that you would be better off , or of hurting yourself in some way: Not at all End of Life Planning Do you have a living will?: (!) No Do you have a durable power of biochemistry professor?: (!) No Hearing Assessment Do you strain or struggle to hear/understand conversations?: No Do you have trouble hearing the television or radio when others do not?: No Does your family ever voice concerns about your hearing?: No Do you wear hearing aid/s?: No Lifestyle Assessment Do you smoke or use smokeless tobacco?: No If you smoke or use smokeless tobacco, are you ready to quit?: NA Are you exposed to secondhand smoke?: No On average, how many drinks of alcohol do you consume in a week?: 1 or less Do you exercise for 30 or more minutes on average at least 3 days a week?: Sometimes Do you have any tooth, denture, or oral problems?: No Do you snore or has anyone told you that you snore?: (!) Yes Do you try to eat a balanced diet?: Yes Do you experience leakage of urine, also known as urinary incontinence?: (!) Sometimes Do you have difficulty performing any of these activities? (check all that apply): None Do you have difficulty performing any of these activities? (check all that apply): None Personal Health During the past 4 weeks, how would you rate your overall health?: Very Good Do you understand how to take all of your medications?: Yes How confident are you that you can control and manage most of your health problems?: Very confident In the past 12 months, how many times have you been hospitalized?: None Safety Assessment Do you have throw rugs on the floor?: (!) Yes Do you feel safe at your home?: Yes Do you feel unsteady when walking?: No Are you having difficulty with driving?: No Do you have trouble seeing?: No What assistive device do you use? (check all that apply): None Vitals: Vitals: 06/14/23 0911 BP: 130/90 Pulse: 80 Resp: 16 Temp: (!) 35.8 C (96.5 F) Body mass index is 34 kg/m . History: Hospitalizations during the past 12 months: no Patient Active Problem List Diagnosis Date Noted Obesity, morbid ([facility]) 05/24/2022 BMI 32.0-32.9,adult 11/27/2017 Essential hypertension, benign 11/27/2017 Past Medical History: Diagnosis Date Depression Hypertension PONV (postoperative nausea and vomiting) Past Surgical History: Procedure Laterality Date ABLATION THERMAL DILATION AND CURETTAGE OF UTERUS OOPHORECTOMY VAGINAL HYSTERECTOMY 2013 Family History Problem Relation Age of Onset Cancer Paternal Grandmother Ovarian cancer Paternal Grandmother Heart disease Father Stroke Father Hypertension Father Breast cancer Neg Hx Anesthesia problems Neg Hx Social History Tobacco Use Smoking status: Former Packs/day: 1.00 Years: 7.00 Additional pack years: 0.00 Total pack years: 7.00 Types: Cigarettes Quit date: 1970 Years since quittin.1 Smokeless tobacco: Never Substance Use Topics Alcohol use: Yes Alcohol/week: 2.0 standard drinks of alcohol Types: 2 Glasses of wine per week Allergies: No Known Allergies Current Outpatient Medications Medication Sig Dispense Refill clotrimazole-betamethasone (LOTRISONE) cream Apply topically 2 (two) times a day. 30 g 4 docosahexaenoic acid/epa (FISH OIL ORAL) Take by mouth. estrogens, conjugated, (PREMARIN) 0.9 mg tablet Take 1 tablet (0.9 mg total) by mouth in the morning. 90 tablet 1 gluc/chnd/om3/dha/epa/fish/str (GLUCOSAMINE CHONDROITIN PLUS ORAL) Take by mouth. NON FORMULARY berberine triamterene-hydroCHLOROthiazide (DYAZIDE) 37.5-25 mg per capsule TAKE ONE CAPSULE BY MOUTH EVERY MORNING 90 capsule 1 dextroamphetamine-amphetamine (ADDERALL) 10 mg tablet Take 1 tablet (10 mg total) by mouth in the morning and at bedtime. Max Daily Amount: 20 mg 60 tablet 0 pantoprazole (PROTONIX) 40 mg EC tablet Take 1 tablet (40 mg total) by mouth in the morning. 30 tablet 1 tirzepatide, weight loss, (ZEPBOUND) 2.5 mg/0.5 mL pen injector Inject 2.5 mg under the skin once a week. 2 mL 5 No current facility-administered medications for this visit. Immunization History Administered Date(s) Administered COVID-19, mRNA, LNP-S, PF, 100mcg/0.5mL Dose 04/28/2020, 05/26/2020, 02/24/2021 H1N1 All Forms 02/22/2009, 04/27/2009 H1N1 Inj Preservative Free 04/27/2009 H1N1 Nasal 02/22/2009 Influenza, Im Trivalent Preservative 03/18/2012 Influenza, Injectable, Mdck, Preservative Free, Quad 01/19/2022, 02/05/2023 Influenza, Injectable, Quadrivalent 02/24/2014 Influenza, Injectable, quadrivalent (PF) 02/06/2018, 01/18/2021 Influenza, Recombinant, Quadrivalent, Injectable, Preserv 01/26/2020 Influenza, Unspecified 03/18/2012, 02/24/2014, 02/06/2018 Tdap 03/18/2012 Medication Adherence: Original 4-item [place] Scale Do you ever forget to take your medicine? no Are you careless at times about taking your medicine? no When you feel better, do you sometimes stop taking your medicine? no Sometimes if you feel worse when you take your medicine, do you stop taking it? no Score: 4 Scoring: high-low; yes=0 no=1. Range 0-4. By reversing the wording of four questions about the way patients might experience drug omissions, the sum of yes answers would provide a composite measure of non-adherence. Higher scores indicate higher adherence. Cognitive Screening: Clock Drawing Test: Normal Mini-Cog: Patient Concerns for Cognitive Function: no Family Concerns for Cognitive Function: no Sensory Screening: Hearing right ear: normal Hearing left ear: normal Can you hear what a person says without seeing his/her face, if spoken in a normal voice from across the room? Yes Can you hear what a person says without seeing his/her face, if that person whispers to you from across a room? Yes Do you use a hearing aid: No Review of Systems: Review of Systems Constitutional: Concerned about weight Respiratory: Negative. Cardiovascular: Negative. Gastrointestinal: Positive for abdominal pain. Genitourinary: Negative. Musculoskeletal: Positive for arthralgias and myalgias. Neurological: Negative. Objective: Physical Exam Orders Only on 10/06/2021 Component Date Value Ref Range Status External Cholesterol 10/04/2021 174 200 Final External Cholesterol:Hdl 10/04/2021 2.6 4.44 Final External Hdl Cholesterol 10/04/2021 66 39 Final External Ldl (Calc) 10/04/2021 73 100 Final External Triglycerides 10/04/2021 173 (A) 149 Final External Very Low Lipoprotein 10/04/2021 35 (A) 30 Final Advanced Directives: Living Will: No DPA for Health Care: No Discussion and Summary: Risk findings: none Personalized Prevention Plan Services: Specialty Evaluation Advised:N/A Preventative Programs Recommended: N/A Prevention Counseling and Education Materials:N/A Diseases: N/A Immunizations: N/A Nutrition: N/A Activity/Exercise/Safety/Misc: N/A The above recommendations were discussed with the patient. Medicare Available Services: Medicare Available Services Admin of Pneumococcal Vaccine: Recommended Admin of influenza vaccine: Completed Admin of Hep B vaccine: Not applicable AAA ultrasound screening: Not applicable Screening mammography: Completed Screening pap and pelvic exam: Not applicable Prostate cancer screening: Not applicable Colorectal cancer screening tests: Completed DM outpatient self management training services: Not applicable Bone mass measurements: Completed Screening for glaucoma: Completed Cardiovascular screening blood tests: Recommended DM screening blood tests: Recommended Smoking cessation counseling: Completed Counseling to prevent tobacco use: Completed Screening/counseling to reduce alcohol misuse: Completed Behavioral therapy for obesity: Not applicable STI infection screening and behavioral counseling: Not applicable Medical nutrition therapy services for DM: Not applicable Medical nutrition therapy services: Not applicable Copy to patient and copy in patient's medical record. Assessment/Plan: Sandy Maldonado has been seen for a well visit today. Preventative recommendations were reviewed. Any chronic conditions that have been addressed include those listed below. Sandy was seen today for annual exam. Diagnoses and all orders for this visit: Routine general medical examination at a health care facility Attention deficit hyperactivity disorder (ADHD), predominantly inattentive type - dextroamphetamine-amphetamine (ADDERALL) 10 mg tablet; Take 1 tablet (10 mg total) by mouth in the morning and at bedtime. Max Daily Amount: 20 mg Essential hypertension, benign - CBC auto differential; Future - Comprehensive metabolic panel; Future - Lipid profile; Future - Thyroid profile includes TSH FT4; Future BMI 34.0-34.9,adult - CBC auto differential; Future - Comprehensive metabolic panel; Future - Lipid profile; Future - Thyroid profile includes TSH FT4; Future - tirzepatide, weight loss, (ZEPBOUND) 2.5 mg/0.5 mL pen injector; Inject 2.5 mg under the skin once a week. Other orders - pantoprazole (PROTONIX) 40 mg EC tablet; Take 1 tablet (40 mg total) by mouth in the morning. Follow Up: Fasting labs Mammogram and cologard utd Pantoprazole 40mg 1 qd - consider UGI and US abd Zepbound rx Recheck in 2m documented in this encounter [facility] Instructions 06-14-2023 Patient Instructions Note Date & Type Note Facility 06-14-2023 Instructions Papa Whitehead MD - 06/14/2023 9:15 AM EST Medicare Available Services Admin of Pneumococcal Vaccine: Recommended Admin of influenza vaccine: Completed Admin of Hep B vaccine: Not applicable AAA ultrasound screening: Not applicable Screening mammography: Completed Screening pap and pelvic exam: Not applicable Prostate cancer screening: Not applicable Colorectal cancer screening tests: Completed DM outpatient self management training services: Not applicable Bone mass measurements: Completed Screening for glaucoma: Completed Cardiovascular screening blood tests: Recommended DM screening blood tests: Recommended Smoking cessation counseling: Completed Counseling to prevent tobacco use: Completed Screening/counseling to reduce alcohol misuse: Completed Behavioral therapy for obesity: Not applicable STI infection screening and behavioral counseling: Not applicable Medical nutrition therapy services for DM: Not applicable Medical nutrition therapy services: Not applicable documented in this encounter [facility] Note 05-10-2023 Telephone Encounter - Corina Medrano LPN - 05/10/2023 1:33 PM EST Note Date & Type Note Facility 05-10-2023 Miscellaneous Notes Formattin g of this note might be different from the original. Patient via [facility] requesting refill of Adderall to [facility] documented in this encounter [facility] Telephone encounter Note 05-10-2023 Telephone Encounter - Corina Medrano LPN - 05/10/2023 1:33 PM EST Note Date & Type Note Facility 05-10-2023 Telephone encount er Note Patient via [facility] requesting refill of Adderall to [facility] Evaluation note Note Date & Type Note Facility Evaluation note Diagnosis Attention deficit hyperactivity disorder (ADHD), predominantly inattentive type documented in this encounter [facility] Evaluation note Note Date & Type Note Facility Evaluation note Diagnosis Routine general medical examination at a health care facility- Primary Attention deficit hyperactivity disorder (ADHD), predominantly inattentive type Essential hypertension, benign BMI 34.0-34.9,adult documented in this encounter [facility] Instructions Note Date & Type Note Facility Instructions Not on filedocumented in this en counter [facility] Instructions Note Date & Type Note Facility Instructions Not on filedocumented in this en counter [facility] Summary Purpose Family History No Family History Records FoundNo Family History Records FoundNo Family History Records Found Advance Directives No Advanced Directives Records FoundNo Advanced Directives Records FoundNo Advanced Directives Records Found Additional Source Comments INFORMATION SOURCE (unrecogn ized section and content) DATE CREATED AUTHOR 09/13/2022 [facility] DATE CREATED AUTHOR AUTHOR'S ORGANIZ ATION 06/19/2023 [facility] DATE CREATED AUTHOR AUTHOR'S ORGANIZ ATION 08/14/2023 [facility] Reason for Visit (unrecogniz ed section and content) Reason Onset Date Comments Med Refill 05/10/2023 Reason Comments Annual Exam Medicare Wellness Reason Comments Med Refill Care Teams (unrecognized sec tion and content) 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 Relationship Specialty Start Date End Date Papa Whitehead MD [address] [place] [address] PCP - General Family Medicine 07/24/16 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 This clinical summary was aggregated from multiple sources. Caution should be exercised in using it in the provision of clinical care. This summary normalizes information from multiple sources, and as a consequence, information in this document may materially change the coding, format and clinical context of patient data. In addition, data may be omitted in some cases. CLINICAL DECISIONS SHOULD BE BASED ON THE PRIMARY CLINICAL RECORDS. [facility]. provides no warranty or guarantee of the accuracy or completeness of information in this document.
== END 2023-09-06 10:29 | disposition home or self-care (01) ==
LOC: VC 10:28
PROVIDERS: PCP Radiology Diagnostic Radiology; Visit Provider Radiology Diagnostic Radiology
DX: I83.813 Varicose veins of bilateral lower extremities with pain (principal)
CPT/HCPCS: 36478

== ENCOUNTER 2023-09-13 09:59 | Outpatient (OUT) | payer MEDICARE, OTHER, SELFPAY ==
--- NOTE | 2023-09-13 10:01 | VEIN_ITS ---
Patient Name: SANDY BOBO MR#: [id number] : 1955 Exam Date: 09/13/2023 Ordering Doctor: DR GOLDY LAZO M.D. RADIOLOGY REPORT PROCEDURE: VC EXT VENOUS RT LMTD COMPARISON: VC EXT VENOUS RT LMTD, 10/12/2022. INDICATIONS: Phlebitis of superficial veins of rt lower extremity I80.01 TECHNIQUE: Lower extremity diop scale and Duplex Doppler evaluation of the deep venous system from the inguinal ligament through the calf veins. FINDINGS: REGION: Right lower extremity. THROMBI: Negative for DVT. Heat induced thrombus visualized 2.0cm from the SPJ. The heat induced thrombus extends from SPJ to mid calf. COMPRESSIBILITY: Non-compressible segments corresponding to thrombus FLOW: Normal waveform and antegrade flow between 5 and 20 cm/s.Areas of no flow corresponding to thrombus CONCLUSION: Post ablation occlusion of the right small saphenous vein with heat induced thrombus 2 cm from the saphenopopliteal junction Dictated by: Goldy Lazo MD on 09/13/2023 at 10:14 Approved by: Goldy Lazo MD on 09/13/2023 at 10:15
--- NOTE | 2023-09-13 10:01 | VEIN_ITS ---
Patient Name: SANDY BOBO MR#: [id number] : 1955 Exam Date: 09/13/2023 Ordering Doctor: DR GOLDY LAZO M.D. RADIOLOGY REPORT PROCEDURE: [facility] EST LMTD [facility] - OFFICE VISIT FOLLOW UP [facility] PROGRESS NOTES: The patient reports no significant problems following intravenous laser ablation of the right small saphenous vein. The patient did not require oral analgesics . The patient has exercised. The patient did wear her compression stocking. Physical exam demonstrates no erythema or warmth. No bruising. No evidence of cellulitis or thrombophlebitis. No ulceration. The small saphenous vein cannot be definitively palpated Review of the ultrasound performed the same day demonstrates occlusive thrombus extending throughout the treated right small saphenous vein with heat induced thrombus 2 cm in the saphenofemoral junction.. The patient expressed a desire to proceed with treatment of incompetent right anterior accessory saphenous vein. [facility] EST LMTD IMPRESSION: 1. Successful ablation of the right small saphenous vein 2. 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 PLAN: Intravenous laser ablation right anterior accessory saphenous vein Nurse notes, history and physical were reviewed and confirmed, see attached forms. The nurse was present throughout the physical exam and consultation Dictated by: Goldy Lazo MD on 09/13/2023 at 10:20 Approved by: Goldy Lazo MD on 09/13/2023 at 10:21
--- OUTSIDE RECORDS SUMMARY | 2023-09-13 10:22 | XMS_ITS | CCD ---
Author Organization [facility] Care Team Providers Care Grading Clerk Name Role Phone ELSA, DR PAPA Agrawal [...] Unavailable WEST, DR PAPA Agrawal Attending Unavailable aPpa Whitehead MD Primary Care Provider PAPA WHITEHEAD [...] Take by mouth. 0 Active estrogens, conjugated (longterm) 0.9 mg oral tablet (4 sources) Estrogen [...] 06-18-19 ABSOLUTE BASOPHIL 0.0 X10E9/L Normal 0.0-0.2 [facility] Comment on above: Performed By: #### C BOLIVAR 28581-0, THYR, CBCA #### [facility] ([id number]) [address], [address] [place] [address] ABSOLUTE NEUTROPHIL 4.3 X10E9/L Normal 1.5-6.6 [facility] Comment on above: Performed By: #### Roberth LUTZ 40743-2, THYR, CBCA #### [facility] ([id number]) [address], [address] [place] [address] Basophils/100 WBC (Bld) 0.4 % Normal [facility] Comment on above: Performed By: #### C BOLIVAR, 63959-0, THYR, CBCA #### [facility] ([id number]) [address] [place] [address] Eosinophils (Bld) [#/Vol] 0.1 10*3/uL Normal 0.0-0.4 [facility] Comment on above: Performed By: #### C BOLIVAR 87154-6, THYR, CBCA #### [facility] ([id number]) [address], [address] [place] [address] Eosinophils/100 WBC (Bld) 1.3 % Normal [facility] Comment on above: Performed By: #### C BOLIVAR, 68064-4, THYR, CBCA #### [facility] ([id number]) [address], [facility] [address] [place] [address] Erythrocyte distribution width (RBC) [Ratio] 13.4 % Normal 11.5-15.0 [facility] Comment on above: Performed By: #### C BOLIVAR 34624-5, THYR, CBCA #### [facility] ([id number]) [address] [address] [place] [address] Hematocrit (Bld) [Volume fraction] 41.7 % Normal 35-47 [facility] Comment on above: Performed By: #### C BOLIVAR, 11047-0, THYR, CBCA #### [facility] ([id number]) [address], [facility] [address] [place] [address] Hemoglobin (Bld) [Mass/Vol] 14.1 g/dL Normal 11.7-15.5 [facility] Comment on above: Performed By: #### C BOLIVAR, 25039-0, THYR, CBCA #### [facility] ([id number]) [address], [facility] [address] [place] [address] Lymphocytes (Bld) [#/Vol] 3.4 10*3/uL Normal 1.0-3.5 [facility] Comment on above: Performed By: #### C BOLIVAR, 80551-6, THYR, CBCA #### [facility] ([id number]) [address] [address] [place] [address] Lymphocytes/100 WBC (Bld) 41.3 % Normal [facility] Comment on above: Performed By: #### C BOLIVAR, 55980-6, THYR, CBCA #### [facility] ([id number]) [address], [address] [place] [address] MCH (RBC) [Entitic mass] 28.5 pg Normal 27-34 [facility] Comment on above: Performed By: #### C BOLIVAR, 18324-3, THYR, CBCA #### [facility] ([id number]) [address], [address] [place] [address] MCHC (RBC) [Mass/Vol] 33.8 g/dL Normal 32-36 [facility] Comment on above: Performed By: #### C BOLIVAR, 29087-2, THYR, CBCA #### [facility] ([id number]) [address], [address] [place] [address] MCV (RBC) [Entitic vol] 84 fL Normal 80-100 [facility] Comment on above: Performed By: #### C BOLIVAR, 25599-5, THYR, CBCA #### [facility] ([id number]) [address], [address] [place] [address] Monocytes (Bld) [#/Vol] 0.4 10*3/uL Normal 0-0.9 [facility] Comment on above: Performed By: #### C BOLIVAR, 20528-3, THYR, CBCA #### [facility] ([id number]) [address], [address] [place] [address] Monocytes/100 WBC (Bld) 4.4 % Normal [facility] Comment on above: Performed By: #### C BOLIVAR, 32359-3, THYR, CBCA #### [facility] ([id number]) [address] [place] [address] Neutrophils/100 WBC (Bld) 52.6 % Normal [facility] Comment on above: Performed By: #### C BOLIVAR, 48674-2, THYR, CBCA #### [facility] ([id number]) [address], [address] [place] [address] Platelet mean volume (Bld) [Entitic vol] 7.8 fL Normal 7-12 [facility] Comment on above: Performed By: #### C BOLIVAR, 64998-3, THYR, CBCA #### [facility] ([id number]) [address], [address] [place] [address] Platelets (Bld) [#/Vol] 292 10*3/uL Normal 150-450 [facility] Comment on above: Performed By: #### C BOLIVAR, 31654-5, THYR, CBCA #### [facility] ([id number]) [address], [address] [place] [address] RBC COUNT 4.94 X10E12/L Normal 3.80-5.20 [facility] Comment on above: Performed By: #### C BOLIVAR, 91081-5, THYR, CBCA #### [facility] ([id number]) [address], [address] [place] [address] WBC (Bld) [#/Vol] 8.2 10*3/uL Normal 4.0-11.0 [facility] Comment on above: Performed By: #### C BOLIVAR, 72560-5, THYR, CBCA #### [facility] ([id number]) [address], [address] [place] [address] COMPREHENSIVE METABOLIC PANE Willie 06-18-2023 Albumin [Mass/Vol] 4.1 g/dL Normal 3.2-5.3 [facility] Comment on above: Performed By: #### C BOLIVAR, 23332-0, THYR, CBCA #### [facility] ([id number]) [address] [place] [address] ALP [Catalytic activity/Vol] 110 U/L Normal 39-130 [facility] Comment on above: Performed By: #### C BOLIVAR, 88230-6, THYR, CBCA #### [facility] ([id number]) [address], [address] [place] [address] ALT [Catalytic activity/Vol] 15 U/L Normal 0-31 [facility] Comment on above: Performed By: #### C BOLIVAR, 85617-0, THYR, CBCA #### [facility] ([id number]) [address], [address] [place] [address] Anion gap [Moles/Vol] 9 mmol/L Normal 5-15 [facility] Comment on above: Performed By: #### C BOLIVAR, 84401-8, THYR, CBCA #### [facility] ([id number]) [address], [address] [place] [address] AST [Catalytic activity/Vol] 15 U/L Normal 0-41 [facility] Comment on above: Performed By: #### C BOLIVAR, 84219-7, THYR, CBCA #### [facility] ([id number]) [address], [address] [place] [address] Bilirubin [Mass/Vol] 0.6 mg/dL Normal 0.3-1.2 [facility] Comment on above: Performed By: #### C BOLIVAR, 30924-1, THYR, CBCA #### [facility] ([id number]) [address], [address] [place] [address] Calcium [Mass/Vol] 8.8 mg/dL Normal 8.5-10.5 [facility] Comment on above: Performed By: #### C BOLIVAR, 93698-5, THYR, CBCA #### [facility] ([id number]) [address], [address] [place] [address] Chloride [Moles/Vol] 104 mmol/L Normal 98-109 [facility] Comment on above: Performed By: #### C BOLIVAR 43153-7, THYR, CBCA #### [facility] ([id number]) [address] [address] [place] [address] CO2 [Moles/Vol] 28 mmol/L Normal 22-32 [facility] Comment on above: Performed By: #### C BOLIVAR 84625-9, THYR, CBCA #### [facility] ([id number]) [address] [address] [place] [address] Creatinine [Mass/Vol] 0.66 mg/dL Normal 0.40-1.00 [facility] Comment on above: Result Comment: METH OD TRACEABLE TO IDMS STANDARD Performed By: #### C BOLIVAR 56771-4, THYR, CBCA #### [facility] ([id number]) [address] [address] [place] [address] eGFR (CKD-EPI) NON-RACE DEPENDENT >90 Normal >59 [facility] Comment on above: Result Comment: Reported eGFR is based on the CKD-EPI 2020 equation that does not use a race coefficient. Performed By: #### Roberth LUTZ 30926-3, THYR, CBCA #### [facility] ([id number]) [address] [address] [place] [address] Glucose [Mass/Vol] 100 mg/dL High 65-99 [facility] Comment on above: Performed By: #### C BOLIVAR 15198-0, THYR, CBCA #### [facility] ([id number]) [address] [address] [place] [address] Potassium [Moles/Vol] 3.8 mmol/L Normal 3.5-5.0 [facility] Comment on above: Performed By: #### C BOLIVAR 91527-1, THYR, CBCA #### [facility] ([id number]) [address], [address] [place] [address] Protein [Mass/Vol] 7.0 g/dL Normal 6.0-8.0 [facility] Comment on above: Performed By: #### C BOLIVAR 10822-4, THYR, CBCA #### [facility] ([id number]) [address], [address] [place] [address] Sodium [Moles/Vol] 141 mmol/L Normal 134-146 [facility] Comment on above: Performed By: #### Roberth LUTZ 76985-2, THYR, CBCA #### [facility] ([id number]) [address], [facility] [address] [place] [address] Urea nitrogen [Mass/Vol] 15 mg/dL Normal 5-27 [facility] Comment on above: Performed By: #### Roberth LUTZ 04329-4, THYR, CBCA #### [facility] ([id number]) [address], [address] [place] [address] Lipid 1996 panelon 4 Cholesterol [Mass/Vol] 151 mg/dL Normal 150-200 [facility] Comment on above: Performed By: #### Roberth LUTZ 09537-9, THYR, CBCA #### [facility] ([id number]) [address], [address] [place] [address] Cholesterol in HDL [Mass/Vol] 68 mg/dL Normal >39 [facility] Comment on above: Result Comment: HDL <40 mg/dL - High Risk HDL > or = 40mg/dL- Desirable HDL >60 mg/dL - Negative Risk Performed By: #### C BOLIVAR, 11579-5, THYR, CBCA #### [facility] ([id number]) [address], [address] [place] [address] Cholesterol in LDL [Mass/Vol] 52 mg/dL Normal <130 [facility] Comment on above: Result Comment: LDL <100 mg/dL - Desirable LDL >160 mg/dL - High Risk Performed By: #### C BOLIVAR 84630-8, THYR, CBCA #### [facility] ([id number]) [address] [address] [place] [address] Cholesterol in VLDL [Mass/Vol] 31 mg/dL High 0-30 [facility] Comment on above: Performed By: #### C BOLIVAR 80702-7, THYR, CBCA #### [facility] ([id number]) [address], [facility] [address] [place] [address] CHOLESTEROL:HDL 2.2 Normal 1.0-5.0 [facility] Comment on above: Performed By: #### C BOLIVAR, 78567-9, THYR, CBCA #### [facility] ([id number]) [address], [facility] [address] [place] [address] Triglyceride [Mass/Vol] 157 mg/dL High 27-150 [facility] Comment on above: Performed By: #### C BOLIVAR 70964-3, THYR, CBCA #### [facility] ([id number]) [address], [facility] [address] [place] [address] THYROID PROFILEon 06-18-2023 Free T4 [Mass/Vol] 0.85 ng/dL Normal 0.61-1.60 [facility] Comment on above: Performed By: #### C BOLIVAR 52736-0, THYR, CBCA #### [facility] ([id number]) [address] [address] [place] [address] TSH 2.32 uIU/mL Normal 0.49-4.67 [facility] Comment on above: Performed By: #### C BOLIVAR 68640-3, THYR, CBCA #### [facility] ([id number]) [address] [facility] [place] [address] VC CONSULT FOLLOWUPon 2022 VC CONSULT FOLLOWUP Patient: SARA MALDONADO I Exam Date: 09/06/2022 : 1955 Gender:F Ordering : DR PAPA HUNTER M.D. Admission #: [id number] Family : Order #: [id number] CLICK HERE TO VIEW EXAM RADIOLOGY REPORT [...] Herrera M.D. on 09/06/2022 at 14:53 Normal [facility] VC EXT VENOUS LT LIMITEDon 0 09-06-2022 VC EXT VENOUS LT LIMITED Patient: SANDY MALDONADO Exam Date: 09/06/2022 : 1955 Gender:F Ordering : DR PAPA HUNTER M.D. Admission #: [id number] Family : Order #: [id number] CLICK HERE TO VIEW EXAM RADIOLOGY REPORT [...] M.D. on 09/06/2022 at 14:58 Approved by: aWldemar Herrera M.D. on 09/06/2022 at 15:02 Normal [facility] VC ENDOVENOUS ABL 1ST V LTon 08-31-2022 VC ENDOVENOUS ABL 1ST V LT Patient: SANDY MALDONADO Exam Date: 08/31/2022 : 1955 Gender:F Ordering : DR PAPA HUNTER M.D. Admission #: [id number] Family : Order #: [id number] CLICK HERE TO VIEW EXAM RADIOLOGY REPORT PROCEDURE: VEIN CENTER ENDOVENOUS ABLATION FIRST VEIN LEFT COMPARISON: VC VENOUS REFLUX NERY LMT, 07/06/2022. INDICATIONS: Pain co-occurrent and due to varicose veins of bilateral legs I83.813 OPERATIVE REPORT: The risks and benefits of the procedure had been previously discussed, and were rediscussed at length. Informed written consent was obtained by ok and López Colvin assisted. Time out procedure [...] Waldemar Herrera M.D. on 08/31/2022 at 14:41 [facility] VC COMP CONSULTATIONon 07-06 VC COMP CONSULTATION Patient: DO CHRSITIAN MALDONADO Exam Date: 07/06/2022 : 1955 Gender:F Ordering : DR PAPA HUNTER M.D. Admission #: [id number] Family : Order #: [id number] CLICK HERE TO VIEW EXAM RADIOLOGY REPORT [...] for several years. 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 jail use of continued use of compression stockings 4. Elevated legs and increased physical activity for symptomatic relief Nurse notes, history and physical were reviewed and confirmed, see attached forms. The nurse was present throughout the physical exam and consultation Dictated by: Papa Hunter MD on 07/06/2022 at 12:57 Approved by: Papa Hunter MD on 07/06/2022 at 13:14 Normal [facility] VC VENOUS REFLUX NERY LMTon 0 07-06-2022 VC VENOUS REFLUX NERY LMT Patient: SANDY MALDONADO Exam Date: 07/06/2022 : 1955 Gender:F Ordering : DR PAPA HUNTER M.D. Admission #: [id number] Family : Order #: [id number] CLICK HERE TO VIEW EXAM RADIOLOGY REPORT [...] thrombus. Compressibility: Normal. Flow: Deep venous reflux. 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: Mid medial lower leg 4.7 mm with [...] Hunter MD on 07/06/2022 at 12:40 Normal [facility] Vital Signs Date Time Vital Sign Value Performing Clinician Facility 06-14-2023 [id number] Body height 161.3 cm Papa Whitehead MD Work Phone: [facility] 06-14-2023 09:11-0500 Body mass index (BMI) [Ratio] 34 kg/m2 Papa Whitehead MD Work Phone: [facility] 06-14-2023 09:11-0500 Body temperature 96.49 [degF] Papa Whitehead MD Work Phone: [facility] 06-14-2023 09:11-0500 Body weight 88.45 kg Papa Whitehead MD Work Phone: [facility] 06-14-2023 09:11-0500 Diastolic blood pressure 88 mm[Hg] Papa Whitehead MD Work Phone: [facility] 06-14-2023 09:11-0500 Heart rate 80 /min Papa Whitehead MD Work Phone: [facility] 06-14-2023 09:11-0500 Respiratory rate 16 /min Papa Whitehead MD Work Phone: [facility] 06-14-2023 09:11-0500 Systolic blood pressure 130 mm[Hg] Papa Whitehead MD Work Phone: [facility] Encounters Encounter Date Encounter Type Care Provider Facility Start: 08-13-2023 End: 08-13-2023 ambulatory [facility] Start: 07-10-2023 Refjing Claudio Work Phone: [facility] Start: 06-18-2023 End: 06-19-2023 ambulatory [facility] Start: 06-14-2023 End: 06-14-2023 ambulatory [facility] Start: 06-14-2023 Encounter for genera l adult medical examination without abnormal findings [facility] Start: 06-14-2023 End: 06-14-2023 Patient encounter procedure Papa Whitehead MD Work Phone: [facility] Comment on above: Routine general medi rajat examination at a health care facility (Primary Dx); Attention deficit hyperactivity disorder (ADHD), predominantly inattentive type; Essential hypertension, benign; BMI 34.0-34.9,adult Start: 06-14-2023 End: 06-14-2023 Patient encounter status Papa Whitehead MD Work Phone: [facility] Work Phone: Start: 05-10-2023 Refill Papa hackett MD Work Phone: [facility] Comment on above: Attention [...] Adult BMI Screening Adult BMI Screen ing [facility] Start: 06-14-2024 Depression Screening Depression Scre ening [facility] Start: 06-14-2024 Fall Risk Screening Fall Risk Screen ing [facility] Start: 06-14-2024 Medicare Annual Well ness Visit Medicare Annual Wellness Visit [facility] Start: 06-14-2024 Tobacco Screening Tobacco Screening [facility] Start: 03-11-2024 Adult BMI Screening Adult BMI Screen ing [facility] Start: 12-08-2023 Depression Screening Depression Scre ening [facility] Start: 12-08-2023 Fall Risk Screening Fall Risk Screen ing [facility] Start: 12-08-2023 Tobacco Screening Tobacco Screening [facility] Start: 08-13-2023 End: 08-13-2023 Patient encounter procedure 08/13/2023 9:15 AM EDT Office Visit [facility] [address] [place] [address] Papa Whitehead MD [address] [place], [place] [id number] [facility] Start: 06-14-2023 End: 06-13-2024 CBC W Auto Differential panel - Blood CBC auto differential Lab Routine Essential hypertension, benign BMI 34.0-34.9,adult Expected: 06/14/2023, Expires: 06/13/2024 [facility] Work Phone: Comment on above: Expected: 06/14/2023 , Expires: 06/13/2024 Start: 06-14-2023 End: 06-13-2024 Comprehensive metabolic 2000 panel - Serum or Plasma Comprehensive metabolic panel Lab Routine Essential hypertension, benign BMI 34.0-34.9,adult Expected: 06/14/2023, Expires: 06/13/2024 [facility] Comment on above: Expected: 06/14/2023 , Expires: 06/13/2024 Start: 06-14-2023 End: 06-13-2024 Lipid 1996 panel - Serum or Plasma Lipid profile Lab Routine Essential hypertension, benign BMI 34.0-34.9,adult Expected: 06/14/2023, Expires: 06/13/2024 [facility] Comment on above: Expected: 06/14/2023 , Expires: 06/13/2024 Start: 06-14-2023 End: 06-13-2024 Thyroid profile includes TSH FT4 Thyroid profile includes TSH FT4 Lab Routine Essential hypertension, benign BMI 34.0-34.9,adult Expected: 06/14/2023, Expires: 06/13/2024 [facility] Comment on above: Expected: 06/14/2023 , Expires: 06/13/2024 Start: 06-14-2023 End: 06-14-2023 Patient encounter procedure 06/14/2023 9:15 AM EST Office Visit [facility] [address] [place] [address] Papa Whitehead MD [address] [place] [address] [facility] Start: 12-28-2022 COVID-19 Vaccine ( season) COVID-19 Vaccine ( season) [facility] Start: 03-18-2022 DTaP,Tdap and Td Vaccines (2 - Td or Tdap) DTaP,Tdap and Td Vaccines (2 - Td or Tdap) [facility] Start: 03-03-2015 Screening for malign ant neoplasm of colon Colonoscopy [facility] Start: 12-23-2005 Administration of varicella zoster vaccine Zoster (Shingles) Vaccine (1 of 2) [facility] Start: 12-23-1973 Adult BMI Follow Up Plan Adult BMI Follow Up Plan [facility] Start: 1955 Medicare Annual Well ness Visit Medicare Annual Wellness Visit [facility] Immunizations Immunization Date Immunization Notes Care Provider Fa [facility] 02-05-2023 Influenza, injectabl e, Madin Hien Canine Kidney, preservative free, quadrivalent Papa Whitehead MD Work Phone: [facility] 01-19-2022 Influenza, injectabl e, Madin Hien Canine Kidney, preservative free, quadrivalent Papa Whitehead MD Work Phone: [facility] 01-18-2021 influenza, injectabl e, quadrivalent, preservative free Papa Whitehead MD Work Phone: [facility] 05-26-2020 COVID-19, mRNA, LNP- S, PF, 100mcg/0.5mL Dose Papa Whitehead MD Work Phone: [facility] 04-28-2020 COVID-19, mRNA, LNP- S, PF, 100mcg/0.5mL Dose Papa Whitehead MD Work Phone: [facility] 01-26-2020 Seasonal, quadrivale nt, recombinant, injectable influenza vaccine, preservative free Papa Whitehead MD Work Phone: [facility] 02-06-2018 influenza virus vacc ine, unspecified formulation Papa Whitehead MD Work Phone: [facility] 02-06-2018 influenza, injectabl e, quadrivalent, preservative free Papa Whitehead MD Work Phone: [facility] 02-24-2014 influenza virus vacc ine, unspecified formulation Papa Whitehead MD Work Phone: [facility] 02-24-2014 influenza, injectabl e, quadrivalent, contains preservative Papa Whitehead MD Work Phone: [facility] 03-18-2012 influenza virus vacc ine, unspecified formulation Papa Whitehead MD Work Phone: [facility] 03-18-2012 influenza, seasonal, injectable Papa Whitehead MD Work Phone: [facility] 03-18-2012 tetanus toxoid, redu tran diphtheria toxoid, and acellular pertussis vaccine, adsorbed Papa Whitehead MD Work Phone: [facility] 04-27-2009 novel influenza-H1N1 -09, all formulations Papa Whitehead MD Work Phone: [facility] 04-27-2009 novel influenza-H1N1 -09, preservative-free, injectable Papa Whitehead MD Work Phone: [facility] 02-22-2009 novel influenza-H1N1 -09, all formulations Papa Whitehead MD Work Phone: [facility] 02-22-2009 novel Influenza-H1N1 -09, live virus for nasal administration Papa Whitehead MD Work Phone: [facility] Payers Date Payer Category Payer Private Health Insurance [facility] [id number] 2023-Present [phone] [address] [place] [address] [id number] 2023 Unknown [id number] 2021 Medicare MEDICARE MEDICAR E PART A & B [id number] 2021-Present [phone] [address] [place] [address] [id number] 1959 Medicare [id number] 1959 Unknown [id number] 1955 Unknown [id number] 1955 Unknown [id number] 1955 Unknown [id number] 1955 Unknown [id number] 1955 Unknown [id number] 1955 Unknown [id number] 1955 Unknown [id number] 1955 Unknown [id number] Social History Date Type Detail Facility Start: 04-13-2022 Tobacco smoking status NHIS Ex-smoker [facility] [employer] End: 04-29-1969 [facility]: [facility]-29-[facility] of tobacco use [facility] Start: 04-13-2022 End: 06-14-2023 Cigarettes smoked current (pack per day) - Reported [facility] [employer] Start: 04-13-2022 Tobacco use and exposure Smokeless tobacco [facility] Start: 03-11-2023 End: 06-14-2023 Alcohol intake Current drinker of alcohol (finding) [facility] Start: 04-13-2022 End: 06-14-2023 Social connection and isolation panel [facility] Do you belong to any clubs or organizations such as bahai groups, unions, fraternal or athletic groups, or school groups? Yes [facility] Are you now , , , , never or living with a partner? [facility] How often to you hav e a drink containing alcohol? 2-4 times a month [facility] How many standard dr inks containing alcohol do you have on a typical day? 1 or 2 [facility] How often do you hav e 6 or more drinks on 1 occasion? Never [facility] How hard is it for y ou to pay for the very basics like food, housing, medical care, and heating Not hard at all [facility] Do you feel stress - tense, restless, nervous, or anxious, or unable to sleep at night because your mind is troubled all the time - these days [OSQ] Only a little [facility] Start: 12-13-2020 Education 18 [facility] Start: 1955 Sex Assigned At Female [facility] Start: 01-29-2022 Gender identity Identifies as female gender (finding) [facility] Start: 01-29-2022 Sexual orientation Heterosexual (finding) [facility] Note 07-10-2023 Telephone Encounter - Corina Medrano LPN - 07/10/2023 6:23 AM EDT Note Date & Type Note Facility 07-10-2023 Miscellaneous Notes Formattin g of this note might be different from the original. [facility] requesting refill of Premarin documented in this encounter [facility] Telephone encounter Note 07-10-2023 Telephone Encounter - Corina Medrano LPN - 07/10/2023 6:23 AM EDT Note Date & Type Note Facility 07-10-2023 Telephone encount er Note [facility] requesting refill of Premarin [facility] History of Present illness Narrative 06-14-2023 Papa Whitehead MD - 06/14/2023 9:15 AM EST Note Date & Type Note Facility 06-14-2023 History of Present illness Narrative Images from the original note were not included. [id number] [facility] [id number] Subjective: Sandy Maldonado is a 67 y.o. female who presents for a Medicare Annual Wellness exam. The following portions of the patient's history were reviewed and updated as appropriate: Health Risk Assessment, allergies, past medical history, past surgical history, social history, family history, and immunization history Accompanied by: self History Provided By: self Language and Other Communication Barriers: Primary Language Spoken: [place] Highest Level of Education Completed: college graduate [...] Do you have a durable power of ip technology transactions attorney?: (!) No Hearing Assessment Do you strain [...] Problem List Diagnosis Date Noted Obesity, morbid ([facility]) 05/24/2022 BMI 32.0-32.9,adult 11/27/2017 Essential hypertension, [...] Recheck in 2m documented in this encounter [facility] Instructions 06-14-2023 Patient Instructions Note Date [...] services: Not applicable documented in this encounter [facility] Note 05-10-2023 Telephone Encounter - Corina Medrano LPN - 05/10/2023 1:33 PM EST Note Date & Type Note Facility 05-10-2023 Miscellaneous Notes Formattin g of this note might be different from the original. Patient via [employer] requesting refill of Adderall to [facility] documented in this encounter [facility] Telephone encounter Note 05-10-2023 Telephone Encounter - Corina Medrano LPN - 05/10/2023 1:33 PM EST Note Date & Type Note Facility 05-10-2023 Telephone encount er Note Patient via [employer] requesting refill of Adderall to [facility] Evaluation note Note Date & Type Note Facility Evaluation note Diagnosis Attention deficit hyperactivity disorder (ADHD), predominantly inattentive type documented in this encounter [facility] Evaluation note Note Date & Type [...] and content) DATE CREATED AUTHOR 09/13/2022 [facility] DATE CREATED AUTHOR AUTHOR'S ORGANIZ ATION 06/19/2023 [facility] DATE CREATED AUTHOR AUTHOR'S ORGANIZ ATION 08/14/2023 [facility] Reason for Visit (unrecogniz ed section and content) Reason Onset Date Comments Med Refill 05/10/2023 Reason Comments Annual Exam Medicare Wellness Reason Comments Med Refill Care Teams (unrecognized sec tion and content) Grading Clerk Relationship Specialty Start Date End Date Papa Whitehead MD [address] [place] [address] PCP - General Family Medicine 07/24/16 Grading Clerk Relationship Specialty Start Date End Date Papa Whitehead MD [address] [place] [address] PCP - General Family Medicine 07/24/16 Grading Clerk Relationship Specialty Start Date End Date Papa Whitehead MD [address] [place], [place] [id number] PCP - General [facility] Medicine 07/24/16 FOR RECORDS PERTAINING TO [...] BE BASED ON THE PRIMARY CLINICAL RECORDS. [facility] [facility]. provides no warranty or guarantee of the accuracy or completeness of information in this document.
== END 2023-09-13 10:00 | disposition home or self-care (01) ==
LOC: VC 10:00
PROVIDERS: PCP Radiology Diagnostic Radiology; Visit Provider Radiology Diagnostic Radiology
DX: I80.01 Phlebitis and thrombophlebitis of superficial vessels of right lower extremity (principal)
CPT/HCPCS: 93971; G0463

== ENCOUNTER 2023-09-25 10:22 | Outpatient (OUT) | payer MEDICARE, SELFPAY ==
[2023-09-25] MEDS: 0.9 % SODIUM CHLORIDE 500 ML, LIDOCAINE HCL 20 ML, SODIUM BICARBONATE 10 MEQ INJ (10:37)
[2023-09-25] MEDS: LIDOCAINE HCL 1% 100 MG/10 ML MDV INJ (10:38)
--- OUTSIDE RECORDS SUMMARY | 2023-09-25 10:46 | XMS_ITS | CCD ---
Author Organization [facility] Care Team Providers Care Station Supervisor Name Role Phone ELSA, DR PAPA Agrawal Attending Unavailable WEST, DR PAPA Agrawal Admitting Unavailable WEST, DR PAPA Agrawal Attending Unavailable WEST, DR PAPA Agrawal Admitting Unavailable WEST, DR PAPA Agrawal Consulting Unavailable DOMENICA, DR WALDEMAR More Consulting Unavailable WEST, DR PAPA Agrawal Attending Unavailable WEST, DR PAPA Agrawal Admitting Unavailable WEST, DR PAPA Agrawal Consulting Unavailable ELSA, DR PAPA Agrawal Attending Unavailable WEST, DR PAPA Agrawal Admitting Unavailable WEST, DR PAPA Agrawal Consulting Unavailable DOMENICA, DR WALDEMAR More Consulting Unavailable WEST, DR PAPA Agrawal Admitting Unavailable WEST, DR PAPA Agrawal Attending Unavailable Papa Whitehead MD Primary Care Provider CRISTIAN, PAPA Avila Attending Unavailable DEFBUTCH, PAPA Avlia Referring Unavailable DEFRANCE, PAPA Avila Primary Care Unavailable DEFRANCE, PAPA Avila Attending Unavailable DEFRANCE, PAPA Avila Referring Unavailable DEFRANCE, PAPA Avila Primary Care Unavailable DEFRANCE, PAPA Avila Referring Unavailable DEFRANCE, PAPA Avila Primary Care Unavailable DEFRANCE, PAPA Avila Referring Unavailable DEFRANCE, PAPA Avila [...] Take by mouth. 0 Active estrogens, conjugated (nursing home) 0.9 mg oral tablet (4 sources) Estrogen [...] to excess calories] Onset: 3 Chronic Other nutritional; endocrine; and metabolic disorders (2 sources) Body mass index (BMI) 34.0-34.9, adult; Translations: [Body mass index (BMI) 34.0-34.9, adult] Onset: 4 Chronic Other skin disorders (2 sources) Onycholysis; Translations: [Onycholysis] Onset: 4 Episodic Phlebitis; [...] Name Value Interpretation Reference Range Facil ity LIVER PANELon 09-24-2023 Albumin [Mass/Vol] 4.0 g/dL Normal 3.2-5.3 [facility] Comment on above: Performed By: #### L IVR #### [facility] ([id number]) [address] [place] [address], [facility] [address] [place] [address] ALP [Catalytic activity/Vol] 104 U/L Normal 39-130 [facility] Comment on above: Performed By: #### L IVR #### [facility] ([id number]) [address] [place] [address], [address] [place] [address] ALT [Catalytic activity/Vol] 17 U/L Normal 0-31 [facility] Comment on above: Performed By: #### L IVR #### [facility] ([id number]) [address] [place] [address], [address] [place] [address] AST [Catalytic activity/Vol] 18 U/L Normal 0-41 [facility] Comment on above: Performed By: #### L IVR #### [facility] ([id number]) [address] [place] [address], [address] [place] [address] Bilirubin [Mass/Vol] 0.7 mg/dL Normal 0.3-1.2 [facility] Comment on above: Performed By: #### L IVR #### [facility] ([id number]) [address], [address] [place] [address] Bilirubin.direct [Mass/Vol] 0.1 mg/dL Normal 0.0-0.4 [facility] Comment on above: Performed By: #### L IVR #### [facility] ([id number]) [address], [address] [place] [address] Protein [Mass/Vol] 6.9 g/dL Normal 6.0-8.0 [facility] Comment on above: Performed By: #### L IVR #### [facility] ([id number]) [address], [address] [place] [address] CBC AND AUTO DIFFon 06-18- 24 ABSOLUTE BASOPHIL 0.0 X10E9/L Normal 0.0-0.2 [facility] Comment on above: Performed By: #### C BOLIVAR, 53567-5, THYR, CBCA #### [facility] ([id number]) [address] [address] [place] [address] ABSOLUTE NEUTROPHIL 4.3 X10E9/L Normal 1.5-6.6 [facility] Comment on above: Performed By: #### C BOLIVAR, 33485-1, THYR, CBCA #### [facility] ([id number]) [address] [address] [place] [address] Basophils/100 WBC (Bld) 0.4 % Normal [facility] Comment on above: Performed By: #### C BOLIVAR, 02041-4, THYR, CBCA #### [facility] ([id number]) [address], [address] [place] [address] Eosinophils (Bld) [#/Vol] 0.1 10*3/uL Normal 0.0-0.4 [facility] Comment on above: Performed By: #### C BOLIVAR, 38745-4, THYR, CBCA #### [facility] ([id number]) [address] [address] [place] [address] Eosinophils/100 WBC (Bld) 1.3 % Normal [facility] Comment on above: Performed By: #### C BOLIVAR, 45061-3, THYR, CBCA #### [facility] ([id number]) [address] [address] [place] [address] Erythrocyte distribution width (RBC) [Ratio] 13.4 % Normal 11.5-15.0 [facility] Comment on above: Performed By: #### C BOLIVAR, 56542-7, THYR, CBCA #### [facility] ([id number]) [address], [facility] [address] [place] [address] Hematocrit (Bld) [Volume fraction] 41.7 % Normal 35-47 [facility] Comment on above: Performed By: #### C BOLIVAR, 41199-3, THYR, CBCA #### [facility] ([id number]) [address] [address] [place] [address] Hemoglobin (Bld) [Mass/Vol] 14.1 g/dL Normal 11.7-15.5 [facility] Comment on above: Performed By: #### C BOLIVAR, 99978-9, THYR, CBCA #### [facility] ([id number]) [address] [address] [place] [address] Lymphocytes (Bld) [#/Vol] 3.4 10*3/uL Normal 1.0-3.5 [facility] Comment on above: Performed By: #### C BOLIVAR, 53299-0, THYR, CBCA #### [facility] ([id number]) [address] [address] [place] [address] Lymphocytes/100 WBC (Bld) 41.3 % Normal [facility] Comment on above: Performed By: #### C BOLIVAR, 53389-9, THYR, CBCA #### [facility] ([id number]) [address] [address] [place] [address] MCH (RBC) [Entitic mass] 28.5 pg Normal 27-34 [facility] Comment on above: Performed By: #### C BOLIVAR, 90582-7, THYR, CBCA #### [facility] ([id number]) [address] [address] [place] [address] MCHC (RBC) [Mass/Vol] 33.8 g/dL Normal 32-36 [facility] Comment on above: Performed By: #### C BOLIVAR, 77708-2, THYR, CBCA #### [facility] ([id number]) [address] [address] [place] [address] MCV (RBC) [Entitic vol] 84 fL Normal 80-100 [facility] Comment on above: Performed By: #### C BOLIVAR, 35817-9, THYR, CBCA #### [facility] ([id number]) [address] [address] [place] [address] Monocytes (Bld) [#/Vol] 0.4 10*3/uL Normal 0-0.9 [facility] Comment on above: Performed By: #### C BOLIVAR, 58734-6, THYR, CBCA #### [facility] ([id number]) [address] [address] [place] [address] Monocytes/100 WBC (Bld) 4.4 % Normal [facility] Comment on above: Performed By: #### C BOLIVAR, 37511-5, THYR, CBCA #### [facility] ([id number]) [address], [facility] [address] [place] [address] Neutrophils/100 WBC (Bld) 52.6 % Normal [facility] Comment on above: Performed By: #### C BOLIVAR, 93244-0, THYR, CBCA #### [facility] ([id number]) [address], [facility] [address] [place] [address] Platelet mean volume (Bld) [Entitic vol] 7.8 fL Normal 7-12 [facility] Comment on above: Performed By: #### C BOLIVAR, 34829-8, THYR, CBCA #### [facility] ([id number]) [address], [facility] [address] [place] [address] Platelets (Bld) [#/Vol] 292 10*3/uL Normal 150-450 [facility] Comment on above: Performed By: #### C BOLIVAR, 82260-1, THYR, CBCA #### [facility] ([id number]) [address], [facility] [address] [place] [address] RBC COUNT 4.94 X10E12/L Normal 3.80-5.20 [facility] Comment on above: Performed By: #### C BOLIVAR, 32956-9, THYR, CBCA #### [facility] ([id number]) [address], [facility] [address] [place] [address] WBC (Bld) [#/Vol] 8.2 10*3/uL Normal 4.0-11.0 [facility] Comment on above: Performed By: #### C BOLIVAR, 01984-8, THYR, CBCA #### [facility] ([id number]) [address], [facility] [address] [place] [address] COMPREHENSIVE METABOLIC PANE Willie 06-18-2023 Albumin [Mass/Vol] 4.1 g/dL Normal 3.2-5.3 [facility] Comment on above: Performed By: #### C BOLIVAR, 55292-2, THYR, CBCA #### [facility] ([id number]) [address], [address] [place] [address] ALP [Catalytic activity/Vol] 110 U/L Normal 39-130 [facility] Comment on above: Performed By: #### C BOLIVAR, 08414-8, THYR, CBCA #### [facility] ([id number]) [address], [address] [place] [address] ALT [Catalytic activity/Vol] 15 U/L Normal 0-31 [facility] Comment on above: Performed By: #### C BOLIVAR, 60452-0, THYR, CBCA #### [facility] ([id number]) [address], [address] [place] [address] Anion gap [Moles/Vol] 9 mmol/L Normal 5-15 [facility] Comment on above: Performed By: #### C BOLIVAR, 72405-5, THYR, CBCA #### [facility] ([id number]) [address], [address] [place] [address] AST [Catalytic activity/Vol] 15 U/L Normal 0-41 [facility] Comment on above: Performed By: #### C BOLIVAR, 25705-2, THYR, CBCA #### [facility] ([id number]) [address], [address] [place] [address] Bilirubin [Mass/Vol] 0.6 mg/dL Normal 0.3-1.2 [facility] Comment on above: Performed By: #### C BOLIVAR, 91502-7, THYR, CBCA #### [facility] ([id number]) [address], [address] [place] [address] Calcium [Mass/Vol] 8.8 mg/dL Normal 8.5-10.5 [facility] Comment on above: Performed By: #### C BOLIVAR, 76668-5, THYR, CBCA #### [facility] ([id number]) [address], [address] [place] [address] Chloride [Moles/Vol] 104 mmol/L Normal 98-109 [facility] Comment on above: Performed By: #### C BOLIVAR 21627-2, THYR, CBCA #### [facility] ([id number]) [address], [address] [place] [address] CO2 [Moles/Vol] 28 mmol/L Normal 22-32 [facility] Comment on above: Performed By: #### C BOLIVAR 31919-5, THYR, CBCA #### [facility] ([id number]) [address] [address] [place] [address] Creatinine [Mass/Vol] 0.66 mg/dL Normal 0.40-1.00 [facility] Comment on above: Result Comment: METH OD TRACEABLE TO IDMS STANDARD Performed By: #### C BOLIVAR 57053-8, THYR, CBCA #### [facility] ([id number]) [address], [address] [place] [address] eGFR (CKD-EPI) NON-RACE DEPENDENT >90 Normal >59 [facility] Comment on above: Result Comment: Reported eGFR is based on the CKD-EPI 2020 equation that does not use a race coefficient. Performed By: #### C BOLIVAR 49255-5, THYR, CBCA #### [facility] ([id number]) [address] [address] [place] [address] Glucose [Mass/Vol] 100 mg/dL High 65-99 [facility] Comment on above: Performed By: #### C BOLIVAR 61781-8, THYR, CBCA #### [facility] ([id number]) [address] [address] [place] [address] Potassium [Moles/Vol] 3.8 mmol/L Normal 3.5-5.0 [facility] Comment on above: Performed By: #### C BOLIVAR 23183-9, THYR, CBCA #### [facility] ([id number]) [address], [address] [place] [address] Protein [Mass/Vol] 7.0 g/dL Normal 6.0-8.0 [facility] Comment on above: Performed By: #### C BOLIVAR, 21152-4, THYR, CBCA #### [facility] ([id number]) [address], [address] [place] [address] Sodium [Moles/Vol] 141 mmol/L Normal 134-146 [facility] Comment on above: Performed By: #### C BOLIVAR, 54914-8, THYR, CBCA #### [facility] ([id number]) [address], [address] [place] [address] Urea nitrogen [Mass/Vol] 15 mg/dL Normal 5-27 [facility] Comment on above: Performed By: #### C BOLIVAR, 80276-4, THYR, CBCA #### [facility] ([id number]) [address], [address] [place] [address] Lipid 1996 panelon 4 Cholesterol [Mass/Vol] 151 mg/dL Normal 150-200 [facility] Comment on above: Performed By: #### C BOLIVAR, 86797-8, THYR, CBCA #### [facility] ([id number]) [address], [address] [place] [address] Cholesterol in HDL [Mass/Vol] 68 mg/dL Normal >39 [facility] Comment on above: Result Comment: HDL <40 mg/dL - High Risk HDL > or = 40mg/dL- Desirable HDL >60 mg/dL - Negative Risk Performed By: #### C BOLIVAR, 56898-7, THYR, CBCA #### [facility] ([id number]) [address] [address] [place] [address] Cholesterol in LDL [Mass/Vol] 52 mg/dL Normal <130 [facility] Comment on above: Result Comment: LDL <100 mg/dL - Desirable LDL >160 mg/dL - High Risk Performed By: #### C BOLIVAR, 91515-1, THYR, CBCA #### [facility] ([id number]) [address] [address] Cholesterol in VLDL [Mass/Vol] 31 mg/dL High 0-30 [facility] Comment on above: Performed By: #### C BOLIVAR, 29543-8, THYR, CBCA #### [facility] ([id number]) [address] [address] [place] [address] CHOLESTEROL:HDL 2.2 Normal 1.0-5.0 [facility] Comment on above: Performed By: #### Roberth LUTZ, 51531-8, THYR, CBCA #### [facility] ([id number]) [address] [address] Triglyceride [Mass/Vol] 157 mg/dL High 27-150 [facility] Comment on above: Performed By: #### Roberth LUTZ, 92684-6, THYR, CBCA #### [facility] ([id number]) [address] [address] [place] [address] THYROID PROFILEon 06-18-2023 Free T4 [Mass/Vol] 0.85 ng/dL Normal 0.61-1.60 [facility] Comment on above: Performed By: #### Roberth LUTZ, 38371-8, THYR, CBCA #### [facility] ([id number]) [address] [place] [address] TSH 2.32 uIU/mL Normal 0.49-4.67 [facility] Comment on above: Performed By: #### C MP, 78434-2, THYR, CBCA #### [facility] ([id number]) [address] [facility], [address] [place] [address] VC CONSULT FOLLOWUPon 2022 VC CONSULT FOLLOWUP Patient: SARA MALDONADO I Exam Date: 09/06/2022 : 1955 Gender:F Ordering : DR PAPA HUNTER M.D. Admission #: [id number] Family : Order #: [id number] CLICK HERE TO VIEW EXAM RADIOLOGY REPORT [...] Herrera M.D. on 09/06/2022 at 14:53 Normal [facility] VC EXT VENOUS LT LIMITEDon 0 09-06-2022 VC EXT VENOUS LT LIMITED Patient: SANDY MALDONADO Exam Date: 09/06/2022 : 1955 Gender:F Ordering : DR PAPA HUNTER M.D. Admission #: [id number] Family : Order #: [id number] CLICK HERE TO VIEW EXAM RADIOLOGY REPORT [...] Herrera M.D. on 09/06/2022 at 15:02 Normal [facility] VC ENDOVENOUS ABL 1ST V LTon 08-31-2022 VC ENDOVENOUS ABL 1ST V LT Patient: SANDY MALDONADO Exam Date: 08/31/2022 : 1955 Gender:F Ordering : DR PAPA HUNTER M.D. Admission #: [id number] Family : Order #: [id number] CLICK HERE TO VIEW EXAM RADIOLOGY REPORT PROCEDURE: VEIN CENTER ENDOVENOUS ABLATION FIRST VEIN LEFT COMPARISON: VC VENOUS REFLUX NERY LMT, 07/06/2022. INDICATIONS: Pain co-occurrent and due to varicose veins of bilateral legs I83.813 OPERATIVE REPORT: The risks and benefits of the procedure had been previously discussed, and were rediscussed at length. Informed written consent was obtained by ny and López saini. Time out procedure was performed. The left [...] Waldemar Herrera M.D. on 08/31/2022 at 14:41 [facility] VC COMP CONSULTATIONon 07-06 VC COMP CONSULTATION Patient: DO CHRISTIAN MALDONADO Exam Date: 07/06/2022 : 1955 Gender:F Ordering : DR PAPA HUNTER M.D. Admission #: [id number] Family : Order #: [id number] CLICK HERE TO VIEW EXAM RADIOLOGY REPORT [...] several years. 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 longterm use of continued use of compression stockings 4. Elevated legs and increased physical activity for symptomatic relief Nurse notes, history and physical were reviewed and confirmed, see attached forms. The nurse was present throughout the physical exam and consultation Dictated by: Papa Hunter MD on 07/06/2022 at 12:57 Approved by: Papa Hunter MD on 07/06/2022 at 13:14 Normal [facility] VC VENOUS REFLUX NERY LMTon 0 07-06-2022 VC VENOUS REFLUX NERY LMT Patient: SANDY MALDONADO Exam Date: 07/06/2022 : 1955 Gender:F Ordering : DR PAPA HUNTER M.D. Admission #: [id number] Family : Order #: [id number] CLICK HERE TO VIEW EXAM RADIOLOGY REPORT [...] thrombus. Compressibility: Normal. Flow: Deep venous reflux. Educational Administrator: Mid medial lower leg 4.7 mm with [...] Hunter MD on 07/06/2022 at 12:40 Normal [facility] Vital Signs Date Time Vital Sign Value Performing Clinician Facility 06-14-2023 09:11-0500 Body height 161.3 cm Papa Whitehead MD Work Phone: [facility] 06-14-2023 09:11-0500 Body mass index (BMI) [Ratio] 34 kg/m2 Papa Whitehead MD Work Phone: [facility] 06-14-2023 09:11-0500 Body temperature 96.49 [degF] Papa Whitehead MD Work Phone: [facility] 06-14-2023 09:11-0500 Body weight 88.45 kg Papa Whitehead MD Work Phone: [facility] 06-14-2023 09:11-0500 Diastolic blood pressure 88 mm[Hg] Papa Whitehead MD Work Phone: [facility] 06-14-2023 09:11-0500 Heart rate 80 /min Papa Whitehead MD Work Phone: [facility] 06-14-2023 09:11-0500 Respiratory rate 16 /min Papa Whitehead MD Work Phone: [facility] 06-14-2023 09:11-0500 Systolic blood pressure 130 mm[Hg] Papa Whitehead MD Work Phone: [facility] Encounters Encounter Date Encounter Type Care Provider Facility Start: 09-24-2023 ambulatory [facility] Start: 08-13-2023 End: 08-13-2023 ambulatory [facility] Start: 07-10-2023 Keri medina 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 Work Phone: [facility] Start: 06-18-2023 End: 06-19-2023 ambulatory [facility] Start: 06-14-2023 End: 06-14-2023 ambulatory [facility] Start: 06-14-2023 Encounter for genera l adult medical examination without abnormal findings [facility] Start: 06-14-2023 End: 06-14-2023 Patient encounter procedure [facility]head MD [facility] Comment on above: Routine general medi rajat examination at a health care facility (Primary Dx); Attention deficit hyperactivity disorder (ADHD), predominantly inattentive type; Essential hypertension, benign; BMI 34.0-34.9,adult Start: 06-14-2023 End: 06-14-2023 Patient encounter status [facility]: Start: 05-10-2023 Refill Papa hackett MD Work Phone: [facility] Comment on above: Attention [...] Adult BMI Screening [facility] Start: 06-14-2024 Depression Screening Depression Scre ening [facility] Start: 06-14-2024 Fall Risk Screening Fall Risk Screen ing [facility] Start: 06-14-2024 Medicare Annual Well ness Visit Medicare Annual Wellness Visit [facility] Start: 06-14-2024 Tobacco Screening Tobacco Screening [facility] Start: 03-11-2024 Adult BMI Screening Adult BMI Screen ing [facility] Start: 12-08-2023 Depression Screening Depression Scre ening [facility] Start: 12-08-2023 Fall Risk Screening Fall Risk Screen ing [facility] Start: 12-08-2023 Tobacco Screening Tobacco Screening [facility] Start: 08-13-2023 End: 08-13-2023 Patient encounter procedure 08/13/2023 9:15 AM EDT Office Visit [facility] [address] [place] [id number] Papa Whitehead MD [address] [place], [place] [id number] [facility] Start: 06-14-2023 End: 06-13-2024 CBC W Auto Differential panel - Blood CBC auto differential Lab Routine Essential hypertension, benign BMI 34.0-34.9,adult Expected: 06/14/2023, Expires: 06/13/2024 [facility] Work Phone: Comment on above: Expected: 06/14/2023 , Expires: 06/13/2024 Start: 06-14-2023 End: 06-13-2024 Comprehensive metabolic 2000 panel - Serum or Plasma Comprehensive metabolic panel Lab Routine Essential hypertension, benign BMI 34.0-34.9,adult Expected: 06/14/2023, Expires: 06/13/2024 [facility] Comment on above: Expected: 06/14/2023 , Expires: 06/13/2024 Start: 06-14-2023 End: 06-13-2024 Lipid 1996 panel - Serum or Plasma Lipid profile Lab Routine Essential hypertension, benign BMI 34.0-34.9,adult Expected: 06/14/2023, Expires: 06/13/2024 [facility] Comment on above: Expected: 06/14/2023 , Expires: 06/13/2024 Start: 06-14-2023 End: 06-13-2024 Thyroid profile includes TSH FT4 Thyroid profile includes TSH FT4 Lab Routine Essential hypertension, benign BMI 34.0-34.9,adult Expected: 06/14/2023, Expires: 06/13/2024 [facility] Comment on above: Expected: 06/14/2023 , Expires: 06/13/2024 Start: 06-14-2023 End: 06-14-2023 Patient encounter procedure 06/14/2023 9:15 AM EST [facility] [address] [place] [address] Papa Whitehead MD [address] [address] [facility] Start: 12-28-2022 COVID-19 Vaccine ( season) COVID-19 Vaccine ( season) [facility] Start: 03-18-2022 DTaP,Tdap and Td Vaccines (2 - Td or Tdap) DTaP,Tdap and Td Vaccines (2 - Td or Tdap) [facility] Start: 03-03-2015 Screening for malign ant neoplasm of colon Colonoscopy [facility] Start: 12-23-2005 Administration of varicella zoster vaccine Zoster (Shingles) Vaccine (1 of 2) [facility] Start: 12-23-1973 Adult BMI Follow Up Plan Adult BMI Follow Up Plan [facility] Start: 1955 Medicare Annual Well ness Visit Medicare Annual Wellness Visit [facility] Immunizations Immunization Date Immunization Notes Care Provider Fa thang 02-05-2023 Influenza, injectabl e, Madin Hien Canine Kidney, preservative free, quadrivalent Papa Whitehead MD Work Phone: [facility] 01-19-2022 Influenza, injectabl e, Madin Cassatt Canine Kidney, preservative free, quadrivalent Papa Whitehead MD Work Phone: [facility] 01-18-2021 influenza, injectabl e, quadrivalent, preservative free Papa Whitehead MD Work Phone: [facility] 05-26-2020 COVID-19, mRNA, LNP- S, PF, 100mcg/0.5mL Dose Papa Whitehead MD Work Phone: [facility] 04-28-2020 COVID-19, mRNA, LNP- S, PF, 100mcg/0.5mL Dose Papa Whitehead MD Work Phone: [facility] 01-26-2020 Seasonal, quadrivale nt, recombinant, injectable influenza vaccine, preservative free Papa Whitehead MD Work Phone: [facility] 02-06-2018 influenza virus vacc ine, unspecified formulation Papa Whitehead MD Work Phone: [facility] 02-06-2018 influenza, injectabl e, quadrivalent, preservative free Papa Whitehead MD Work Phone: [facility] 02-24-2014 influenza virus vacc ine, unspecified formulation Papa Whitehead MD Work Phone: [facility] 02-24-2014 influenza, injectabl e, quadrivalent, contains preservative Papa Whitehead MD Work Phone: [facility] 03-18-2012 influenza virus vacc ine, unspecified formulation Papa Whitehead MD Work Phone: [facility] 03-18-2012 influenza, seasonal, injectable Papa Whitehead MD Work Phone: [facility] 03-18-2012 tetanus toxoid, redu tran diphtheria toxoid, and acellular pertussis vaccine, adsorbed Papa Whitehead MD Work Phone: [facility] 04-27-2009 novel influenza-H1N1 -09, all formulations Papa Whitehead MD Work Phone: [facility] 04-27-2009 novel influenza-H1N1 -09, preservative-free, injectable Papa Whitehead MD Work Phone: [facility] 02-22-2009 novel influenza-H1N1 -09, all formulations Papa Whitehead MD Work Phone: [facility] 02-22-2009 novel Influenza-H1N1 -09, live virus for nasal administration Papa Whitehead MD Work Phone: [facility] Payers Date Payer Category Payer Private Health Insurance [facility] SUPPLEMENT [id number] 2023-Present [phone] [address] [place] [address] [id number] 2023 Unknown [id number] 2021 Medicare MEDICARE MEDICAR E PART A & B [id number] 2021-Present [phone] [address] [place] [address] [id number] 1959 Medicare [id number] 1959 Unknown [id number] 1955 Unknown [id number] 1955 Unknown [id number] 1955 Unknown [id number] 1955 Unknown [id number] 1955 Unknown [id number] 1955 Unknown [id number] 1955 Unknown [id number] 1955 Unknown [id number] 1955 Unknown [id number] Social History Date Type Detail Facility Start: 04-13-2022 Tobacco smoking status NHIS Ex-smoker [facility] End: 04-29-1969 History of tobacco use Current smoker [facility] End: 04-29-1969 History of tobacco use Cigarette Smoker [facility] Start: 04-13-2022 End: 06-14-2023 Cigarettes smoked current (pack per day) - Reported 1 [facility] Start: 04-13-2022 Tobacco use and exposure Smokeless tobacco non-user [facility] Start: 03-11-2023 End: 06-14-2023 Alcohol intake Current drinker of alcohol (finding) [facility] Start: 04-13-2022 End: 06-14-2023 Social connection and isolation panel [facility] Do you belong to any clubs or organizations such as buddhism groups, unions, fraternal or athletic groups, or school groups? Yes [facility] Are you now , , , , never or living with a partner? [facility] How often to you hav e a drink containing alcohol? 2-4 times a month [facility] How many standard dr inks containing alcohol do you have on a typical day? 1 or 2 [facility] How often do you hav e 6 or more drinks on 1 occasion? Never [facility] How hard is it for y ou to pay for the very basics like food, housing, medical care, and heating Not hard at all [facility] Do you feel stress - tense, restless, nervous, or anxious, or unable to sleep at night because your mind is troubled all the time - these days [OSQ] Only a little [facility] Start: 12-13-2020 Education 18 [facility] Start: 1955 Sex Assigned At Female [facility] Start: 01-29-2022 Gender identity Identifies as female gender (finding) [facility] Start: 01-29-2022 Sexual orientation Heterosexual (finding) [facility] Note 07-10-2023 Telephone Encounter - Corina Medrano LPN - 07/10/2023 6:23 AM EDT Note Date & Type Note Facility 07-10-2023 Miscellaneous Notes Formattin g of this note might be different from the original. [facility] requesting refill of Premarin documented in this encounter [facility] Telephone encounter Note 07-10-2023 Telephone Encounter - Corina Medrano LPN - 07/10/2023 6:23 AM EDT Note Date & Type Note Facility 07-10-2023 Telephone encount er Note [facility] requesting refill of Premarin [facility] History of Present illness Narrative 06-14-2023 Papa Whitehead MD - 06/14/2023 9:15 AM EST Note Date & Type Note Facility 06-14-2023 History of Present illness Narrative Images from the original note were not included. [address] [facility] [id number] Subjective: Sandy Maldonado is a 67 y.o. female who presents for a Medicare Annual Wellness exam. The following portions of the patient's history were reviewed and updated as appropriate: Health Risk Assessment, allergies, past medical history, past surgical history, social history, family history, and immunization history Accompanied by: self History Provided By: self Language and Other Communication Barriers: Primary Language Spoken: Romansh Highest Level of Education Completed: college graduate [...] Do you have a durable power of city attorney?: (!) No Hearing Assessment Do you [...] Problem List Diagnosis Date Noted Obesity, morbid ([facility]) 05/24/2022 BMI 32.0-32.9,adult 11/27/2017 Essential hypertension, benign 11/27/2017 Past Medical History: Diagnosis Date Depression Hypertension PONV (postoperative nausea and vomiting) Past Surgical History: Procedure Laterality Date ABLATION THERMAL DILATION AND CURETTAGE OF UTERUS OOPHORECTOMY VAGINAL HYSTERECTOMY 2012 Family History Problem Relation Age of Onset Cancer Paternal Grandmother Ovarian cancer Paternal Grandmother Heart disease Father Stroke Father Hypertension Father Breast cancer Neg Hx Anesthesia problems Neg Hx Social History Tobacco Use Smoking status: Former Packs/day: 1.00 Years: 7.00 Additional pack years: 0.00 Total pack years: 7.00 Types: Cigarettes Quit date: 1969 Years since quittin.1 Smokeless tobacco: Never Substance [...] Recheck in 2m [facility] Inst[facility] 06-14-2023 Patient Instructions Note Date [...] services: Not applicable documented in this encounter [facility] Note 05-10-2023 Telephone Encounter - Corina Medrano LPN - 05/10/2023 1:33 PM EST Note Date & Type Note Facility 05-10-2023 Miscellaneous Notes Formattin g of this note might be different from the original. Patient via MyChart requesting refill of Adderall to [facility] documented in this encounter [facility] Telephone encounter Note 05-10-2023 Telephone Encounter - Corina Medrano LPN - 05/10/2023 1:33 PM EST Note Date & Type Note Facility 05-10-2023 Telephone encount er Note [facility] Evaluation note Note Date & Type Note Facility Evaluation note Diagnosis Attention deficit hyperactivity disorder (ADHD), predominantly inattentive type documented in this encounter [facility] Evaluation note Note Date & Type [...] and content) DATE CREATED AUTHOR 09/13/2022 [facility] DATE CREATED AUTHOR AUTHOR'S ORGANIZ ATION 08/14/2023 [facility] DATE CREATED AUTHOR AUTHOR'S ORGANIZ ATION 09/24/2023 [facility] Reason for Visit (unrecogniz ed section and content) Reason Onset Date Comments Med Refill 05/10/2023 Reason Comments Annual Exam Medicare Wellness Reason Comments Med Refill Care Teams (unrecognized sec tion and content) Station Supervisor Relationship Specialty Start Date End Date Papa Whitehead MD [address] [place] [address] PCP - General Family Medicine 07/24/16 Station Supervisor Relationship Specialty Start Date End Date Papa Whitehead MD [address] [place] [address] PCP - General Family Medicine 07/24/16 Station Supervisor Relationship Specialty Start Date End Date Papa Whitehead MD [address] [place] [address] PCP - General Family Medicine 07/24/16 FOR RECORDS PERTAINING TO PATIENTS [...] BE BASED ON THE PRIMARY CLINICAL RECORDS. [employer] provides no warranty or guarantee of the accuracy or completeness of information in this document.
--- NOTE | 2023-09-25 11:17 | VEIN_ITS ---
[address] [address] Patient Name: SANDY BOBO MRN: [id number] date: 1955 Sex: F Assigned Patient Location: Current Patient Location: Accession/Order Number: [id number] Exam Date: 09/25/2023 10:40 Report Date: 09/25/2023 12:12 At the request of: PAPA HUNTER Procedure: VC INJ Foam Sclerosant WUS LAUNDRY AGENT PROCEDURE: VC INJ Foam Sclerosant WUS LAUNDRY AGENT COMPARISON: None. HISTORY: Pain due to varicose veins of bilateral legs I83.813 Pre-operative Diagnosis: CEAP class C3 venous insufficiency with pain, tenderness, edema and incompetent right saphenous and varicose vein(s), chronic venous insufficiency right leg secondary to venous incompetence Post-operative Diagnosis: CEAP class C3 venous insufficiency with pain, tenderness, edema and incompetent right saphenous and varicose vein(s), chronic venous insufficiency right leg secondary to venous incompetence Procedure Performed: 1. Ultrasound-guided microfoam chemical ablation with Varithenaregistered 2. Intraoperative ultrasound guidance Anesthesia: None Indications for Procedure: 67-year-old female who presents with a long history of lower extremity pain and varicose veins. The patient failed conservative medical therapy including medical compression stockings, exercise and analgesics. Prior procedures include endovenous laser ablation. Multiple incompetent varicosities of the right leg. Duplex scan showed reflux and enlarged diameters up to 3 mm. The patient underwent informed consent including management options where the complications of infection, bleeding, pain, and skin injury were discussed. Particular attention was spent discussing thrombus extension and deep vein thrombosis as well as the possibility of pulmonary embolus and treatment with oral or injectable blood thinners. Procedure: The patient walked to the procedure room. All applicable staff donned appropriate apparel. A procedure timeout was performed to confirm correct patient, correct extremity, correct procedure, and correct room set-up including presence of all applicable supplies, devices, and drugs. A duplex ultrasound, performed by myself confirmed the location and incompetence of branch saphenous varicosities and their course was marked on the skin together with the dilated tributaries. The extent of treatment of the vein and the associated varicosities was determined through ultrasound mapping. The skin was prepped and then punctured with a butterfly needle and advanced under ultrasound guidance. The Varithenaregistered canister was activated and the canister was primed and purged as required in the instructions for use. Varithenaregistered was drawn into a sterile syringe. The following injections were made: 5 cc injected into a 3 mm varicose vein right mid medial lower leg 3 cc injected into a 3 mm varicose vein right medial thigh 2 cc injected into a 3 mm varicose vein right lateral mid calf 2 cc injected into a 3 mm varicose vein right lateral distal thigh Varithenaregistered was slowly administered at 0.5-1.0 cc/second with close observation by ultrasound of its course in the vessels. Total volume utilized was: 12cc. Following administration of Varithenaregistered the leg was elevated and the patient was asked to repeatedly dorsiflex the ankle to limit flow of Varithenaregistered into perforating veins. Once appropriate spasm had been confirmed in the treated veins, the vascular catheter was removed from the leg and light pressure was applied over the puncture site for hemostasis. The common femoral and deep superficial veins were then evaluated for flow and compressibility prior to dressing placement. The lower extremity was kept elevated at 45 degrees above the horizontal and cording material was applied over the saphenous segments and tributaries to allow for eccentric compression over the target vessels including the targeted saphenous vein(s). A multilayer dressing was applied consisting of foam pads, coban and thigh-high 20-30 mm Hg compression elastic support hose were placed on the patient. The leg was lowered only after compression had been applied and the patient was immediately ambulatory. The patient ambulated 10 minutes under supervision and was without apparent concerns at time of release. Post-care instructions include advising patient to keep post-treatment bandages in place and dry for 48 hours, avoid extended periods of inactivity, avoid heavy exercise for one week, wear compression stockings on the treated leg continuously for two weeks, to walk daily for 10 minutes over the next month. The patient was instructed to take an anti-inflammatory medicine as needed and to follow up for color duplex scan of the Saphenous veins, the treated branch saphenous varicosities, the adjacent deep veins, and additional treatment within 7 days. PERSONNEL: López Colvin RN Electronically authenticated by: PAPA HUNTER Date: 09/25/2023 12:12
--- NOTE | 2023-09-25 13:00 | VEIN_ITS ---
[address] [address] Patient Name: SANDY BOBO MRN: [id number] date: 1955 Sex: F Assigned Patient Location: Current Patient Location: Accession/Order Number: [id number] Exam Date: 09/25/2023 10:30 Report Date: 09/25/2023 15:17 At the request of: PAPA HUNTER Procedure: VC Endovenous Ablation 1VeinRT EXAMINATION: VC Endovenous Ablation 1VeinRT HISTORY: Pain due to varicose veins of bilateral legs I83.813 COMPARISON: No relevant comparison available. NO CHARGE - EARLY TERMINATION AFTER VENOUS ACCESS TECHNIQUE: The risks and benefits of the procedure had been previously discussed, and were rediscussed at length. Informed written consent was obtained. Ashlee Marie and López Colvin assisted. Time out procedure was performed. The right lower extremity was prepared and draped in the usual sterile fashion to allow knee flexion in the sterile field. Duplex ultrasound probe was draped in a sterile cover, sterile transmission gel was used. Venous mapping was performed with the areas of dilation and large tributaries marked. The diameter of the right anterior accessory saphenous vein ranged from 3-5 mm. A 30 gauge needle and 1% buffered lidocaine was used to anesthetize the entry site. 3 attempts at venous access were performed, the guidewire could not be advanced through the vein and the procedure was therefore prematurely terminated. VEIN/VC Endovenous Ablation 1VeinRT IMPRESSION: Technically unsuccessful endovenous laser ablation of the right anterior accessory saphenous vein, venous access was obtained however the guide wire could not be advanced despite multiple attempts. Electronically authenticated by: PAPA HUNTER Date: 09/25/2023 15:17
== END 2023-09-25 10:23 | disposition home or self-care (01) ==
LOC: VC 10:29
PROVIDERS: PCP Radiology Diagnostic Radiology; Visit Provider Radiology Diagnostic Radiology
DX: I83.813 Varicose veins of bilateral lower extremities with pain (principal)
CPT/HCPCS: 36466; 36478

== ENCOUNTER 2023-10-03 09:23 | Outpatient (OUT) | payer MEDICARE, OTHER, SELFPAY ==
--- NOTE | 2023-10-03 09:34 | VEIN_ITS ---
Patient Name: SANDY BOBO MR#: [id number] : 1955 Exam Date: 10/03/2023 Ordering Doctor: DR PAPA HUNTER M.D. RADIOLOGY REPORT PROCEDURE: VC EXT VENOUS RT LMTD COMPARISON: VC EXT VENOUS RT LMTD, 09/13/2023. INDICATIONS: I80.01 Phlebitis of superficial veins of rt lower extremity TECHNIQUE: Lower extremity diop scale and Duplex Doppler evaluation of the deep venous system from the inguinal ligament through the calf veins. FINDINGS: REGION: Right lower extremity. THROMBI: Negative for DVT. Varithena induced thrombus visualized at mid/medial calf and mid/lat calf. COMPRESSIBILITY: Non-compressible segments corresponding to thrombus FLOW: Areas of no flow corresponding to thrombus OTHER: No patent varicose veins remain. CONCLUSION: 1. Successful post ablation occlusion of right leg treated branch saphenous varicosities. Dictated by: Waldemar Herrera M.D. on 10/03/2023 at 12:50 Approved by: Waldemar Herrera M.D. on 10/03/2023 at 12:53
--- NOTE | 2023-10-03 09:34 | VEIN_ITS ---
Patient Name: SANDY BOBO MR#: [id number] : 1955 Exam Date: 10/03/2023 Ordering Doctor: DR PAPA HUNTER M.D. RADIOLOGY REPORT PROCEDURE: [facility] EST [facility] - OFFICE VISIT FOLLOW UP [facility] PROGRESS NOTES: The patient reports improvement in leg symptoms. There has been interval reduction in varicosities. The patient has followed our recommendations to walk 20-30 minutes once or twice per day since the procedure. Physical exam demonstrates decrease in varicosities of the leg. Persistent varicosities are identified along the left leg. Review of the ultrasound performed the same day demonstrates occlusive thrombus extending throughout the treated vein(s), see separate report, consistent with a successful ablation. No thrombus extending into or beyond the saphenofemoral junction. The patient expressed a desire to proceed with treatment of remaining incompetent varicosities. The patient was informed that treatment was a process and would require several procedures/sessions. [facility]: 1. Successful ablation of the right leg treated branch saphenous vein(s). 2. Persistent varicose veins and lower extremity symptoms. PLAN: Microfoam chemical ablation of left leg incompetent branch saphenous varicosities. Nurse notes, history and physical were reviewed and confirmed, see attached forms. The nurse was present throughout the physical exam and consultation Dictated by: Waldemar Herrera M.D. on 10/03/2023 at 12:53 Approved by: Waldemar Herrera M.D. on 10/03/2023 at 12:54
--- OUTSIDE RECORDS SUMMARY | 2023-10-03 09:56 | XMS_ITS | CCD ---
Author Organization [facility] Care Team Providers Care Deputy Chief Sheriff Name Role Phone ELSA, DR PAPA Agrawal [...] CRISTIAN, PAPA Avila Attending Unavailable DEFBUTCH, PAPA Avila [...] Take by mouth. 0 Active estrogens, conjugated (shelter) 0.9 mg oral tablet (4 sources) Estrogen [...] 09-24-2023 Albumin [Mass/Vol] 4.0 g/dL Normal 3.2-5.3 [facility] Comment on above: Performed By: #### L IVR #### [facility] ([id number]) [address] [place] [address], [facility] [address] [place] [address] ALP [Catalytic activity/Vol] 104 U/L Normal 39-130 [facility] Comment on above: Performed By: #### L IVR #### [facility] ([id number]) [address] [place] [address], [address] [place] [address] ALT [Catalytic activity/Vol] 17 U/L Normal 0-31 [facility] Comment on above: Performed By: #### L IVR #### [facility] ([id number]) [address] [place] [address], [address] [place] [address] AST [Catalytic activity/Vol] 18 U/L Normal 0-41 [facility] Comment on above: Performed By: #### L IVR #### [facility] ([id number]) [address] [place] [address], [address] [place] [address] Bilirubin [Mass/Vol] 0.7 mg/dL Normal 0.3-1.2 [facility] Comment on above: Performed By: #### L IVR #### [facility] ([id number]) [address], [address] [place] [address] Bilirubin.direct [Mass/Vol] 0.1 mg/dL Normal 0.0-0.4 [facility] Comment on above: Performed By: #### L IVR #### [facility] ([id number]) [address], [address] [place] [address] Protein [Mass/Vol] 6.9 g/dL Normal 6.0-8.0 [facility] Comment on above: Performed By: #### L IVR #### [facility] ([id number]) [address], [address] [place] [address] CBC AND AUTO DIFFon 06-18- 24 ABSOLUTE BASOPHIL 0.0 X10E9/L Normal 0.0-0.2 [facility] Comment on above: Performed By: #### C BOLIVAR, 14267-9, THYR, CBCA #### [facility] ([id number]) [address] [address] [place] [address] ABSOLUTE NEUTROPHIL 4.3 X10E9/L Normal 1.5-6.6 [facility] Comment on above: Performed By: #### C BOLIVAR, 54163-9, THYR, CBCA #### [facility] ([id number]) [address] [address] [place] [address] Basophils/100 WBC (Bld) 0.4 % Normal [facility] Comment on above: Performed By: #### C BOLIVAR, 74810-0, THYR, CBCA #### [facility] ([id number]) [address], [address] [place] [address] Eosinophils (Bld) [#/Vol] 0.1 10*3/uL Normal 0.0-0.4 [facility] Comment on above: Performed By: #### C BOLIVAR, 79806-1, THYR, CBCA #### [facility] ([id number]) [address] [address] [place] [address] Eosinophils/100 WBC (Bld) 1.3 % Normal [facility] Comment on above: Performed By: #### C BOLIVAR, 53575-5, THYR, CBCA #### [facility] ([id number]) [address] [address] [place] [address] Erythrocyte distribution width (RBC) [Ratio] 13.4 % Normal 11.5-15.0 [facility] Comment on above: Performed By: #### C BOLIVAR, 76959-1, THYR, CBCA #### [facility] ([id number]) [address], [facility] [address] [place] [address] Hematocrit (Bld) [Volume fraction] 41.7 % Normal 35-47 [facility] Comment on above: Performed By: #### C BOLIVAR, 65774-4, THYR, CBCA #### [facility] ([id number]) [address] [address] [place] [address] Hemoglobin (Bld) [Mass/Vol] 14.1 g/dL Normal 11.7-15.5 [facility] Comment on above: Performed By: #### C BOLIVAR, 27495-6, THYR, CBCA #### [facility] ([id number]) [address] [address] [place] [address] Lymphocytes (Bld) [#/Vol] 3.4 10*3/uL Normal 1.0-3.5 [facility] Comment on above: Performed By: #### C BOLIVAR, 27115-1, THYR, CBCA #### [facility] ([id number]) [address] [address] [place] [address] Lymphocytes/100 WBC (Bld) 41.3 % Normal [facility] Comment on above: Performed By: #### C BOLIVAR, 62357-3, THYR, CBCA #### [facility] ([id number]) [address] [address] [place] [address] MCH (RBC) [Entitic mass] 28.5 pg Normal 27-34 [facility] Comment on above: Performed By: #### C BOLIVAR, 90165-8, THYR, CBCA #### [facility] ([id number]) [address] [address] [place] [address] MCHC (RBC) [Mass/Vol] 33.8 g/dL Normal 32-36 [facility] Comment on above: Performed By: #### C BOLIVAR, 10568-2, THYR, CBCA #### [facility] ([id number]) [address] [address] [place] [address] MCV (RBC) [Entitic vol] 84 fL Normal 80-100 [facility] Comment on above: Performed By: #### C BOLIVAR, 08708-9, THYR, CBCA #### [facility] ([id number]) [address] [address] [place] [address] Monocytes (Bld) [#/Vol] 0.4 10*3/uL Normal 0-0.9 [facility] Comment on above: Performed By: #### C BOLIVAR, 48885-2, THYR, CBCA #### [facility] ([id number]) [address] [address] [place] [address] Monocytes/100 WBC (Bld) 4.4 % Normal [facility] Comment on above: Performed By: #### C BOLIVAR, 91617-2, THYR, CBCA #### [facility] ([id number]) [address], [facility] [address] [place] [address] Neutrophils/100 WBC (Bld) 52.6 % Normal [facility] Comment on above: Performed By: #### C BOLIVAR, 68803-3, THYR, CBCA #### [facility] ([id number]) [address], [facility] [address] [place] [address] Platelet mean volume (Bld) [Entitic vol] 7.8 fL Normal 7-12 [facility] Comment on above: Performed By: #### C BOLIVAR, 24276-6, THYR, CBCA #### [facility] ([id number]) [address], [facility] [address] [place] [address] Platelets (Bld) [#/Vol] 292 10*3/uL Normal 150-450 [facility] Comment on above: Performed By: #### C BOLIVAR, 96009-2, THYR, CBCA #### [facility] ([id number]) [address], [facility] [address] [place] [address] RBC COUNT 4.94 X10E12/L Normal 3.80-5.20 [facility] Comment on above: Performed By: #### C BOLIVAR, 82997-1, THYR, CBCA #### [facility] ([id number]) [address], [facility] [address] [place] [address] WBC (Bld) [#/Vol] 8.2 10*3/uL Normal 4.0-11.0 [facility] Comment on above: Performed By: #### C BOLIVAR, 87389-6, THYR, CBCA #### [facility] ([id number]) [address], [facility] [address] [place] [address] COMPREHENSIVE METABOLIC PANE Willie 06-18-2023 Albumin [Mass/Vol] 4.1 g/dL Normal 3.2-5.3 [facility] Comment on above: Performed By: #### C BOLIVAR, 47701-1, THYR, CBCA #### [facility] ([id number]) [address], [address] [place] [address] ALP [Catalytic activity/Vol] 110 U/L Normal 39-130 [facility] Comment on above: Performed By: #### C BOLIVAR, 47549-9, THYR, CBCA #### [facility] ([id number]) [address], [address] [place] [address] ALT [Catalytic activity/Vol] 15 U/L Normal 0-31 [facility] Comment on above: Performed By: #### C BOLIVAR, 42521-0, THYR, CBCA #### [facility] ([id number]) [address], [address] [place] [address] Anion gap [Moles/Vol] 9 mmol/L Normal 5-15 [facility] Comment on above: Performed By: #### C BOLIVAR, 92211-3, THYR, CBCA #### [facility] ([id number]) [address], [address] [place] [address] AST [Catalytic activity/Vol] 15 U/L Normal 0-41 [facility] Comment on above: Performed By: #### C BOLIVAR, 65243-4, THYR, CBCA #### [facility] ([id number]) [address], [address] [place] [address] Bilirubin [Mass/Vol] 0.6 mg/dL Normal 0.3-1.2 [facility] Comment on above: Performed By: #### C BOLIVAR, 15482-4, THYR, CBCA #### [facility] ([id number]) [address], [address] [place] [address] Calcium [Mass/Vol] 8.8 mg/dL Normal 8.5-10.5 [facility] Comment on above: Performed By: #### C BOLIVAR, 98158-7, THYR, CBCA #### [facility] ([id number]) [address], [address] [place] [address] Chloride [Moles/Vol] 104 mmol/L Normal 98-109 [facility] Comment on above: Performed By: #### C BOLIVAR 97104-7, THYR, CBCA #### [facility] ([id number]) [address], [address] [place] [address] CO2 [Moles/Vol] 28 mmol/L Normal 22-32 [facility] Comment on above: Performed By: #### C BOLIVAR 28112-8, THYR, CBCA #### [facility] ([id number]) [address] [address] [place] [address] Creatinine [Mass/Vol] 0.66 mg/dL Normal 0.40-1.00 [facility] Comment on above: Result Comment: METH OD TRACEABLE TO IDMS STANDARD Performed By: #### C BOLIVAR 64207-6, THYR, CBCA #### [facility] ([id number]) [address], [address] [place] [address] eGFR (CKD-EPI) NON-RACE DEPENDENT >90 Normal >59 [facility] Comment on above: Result Comment: Reported eGFR is based on the CKD-EPI 2020 equation that does not use a race coefficient. Performed By: #### C BOLIVAR 25032-9, THYR, CBCA #### [facility] ([id number]) [address] [facility] [address] [place] [address] Glucose [Mass/Vol] 100 mg/dL High 65-99 [facility] Comment on above: Performed By: #### C BOLIVAR 50270-1, THYR, CBCA #### [facility] ([id number]) [address] [address] [place] [address] Potassium [Moles/Vol] 3.8 mmol/L Normal 3.5-5.0 [facility] Comment on above: Performed By: #### C BOLIVAR 93354-7, THYR, CBCA #### [facility] ([id number]) [address], [address] [place] [address] Protein [Mass/Vol] 7.0 g/dL Normal 6.0-8.0 [facility] Comment on above: Performed By: #### C BOLIVAR, 31103-9, THYR, CBCA #### [facility] ([id number]) [address], [address] [place] [address] Sodium [Moles/Vol] 141 mmol/L Normal 134-146 [facility] Comment on above: Performed By: #### C BOLIVAR, 36497-3, THYR, CBCA #### [facility] ([id number]) [address], [address] [place] [address] Urea nitrogen [Mass/Vol] 15 mg/dL Normal 5-27 [facility] Comment on above: Performed By: #### C BOLIVAR, 56661-4, THYR, CBCA #### [facility] ([id number]) [address], [address] [place] [address] Lipid 1996 panelon 4 Cholesterol [Mass/Vol] 151 mg/dL Normal 150-200 [facility] Comment on above: Performed By: #### C BOLIVAR, 32919-2, THYR, CBCA #### [facility] ([id number]) [address], [address] [place] [address] Cholesterol in HDL [Mass/Vol] 68 mg/dL Normal >39 [facility] Comment on above: Result Comment: HDL <40 mg/dL - High Risk HDL > or = 40mg/dL- Desirable HDL >60 mg/dL - Negative Risk Performed By: #### C BOLIVAR, 34641-1, THYR, CBCA #### [facility] ([id number]) [address] [address] [place] [address] Cholesterol in LDL [Mass/Vol] 52 mg/dL Normal <130 [facility] Comment on above: Result Comment: LDL <100 mg/dL - Desirable LDL >160 mg/dL - High Risk Performed By: #### C BOLIVAR, 56034-2, THYR, CBCA #### [facility] ([id number]) [address] [address] Cholesterol in VLDL [Mass/Vol] 31 mg/dL High 0-30 [facility] Comment on above: Performed By: #### C BOLIVAR, 80153-9, THYR, CBCA #### [facility] ([id number]) [address] [address] [place] [address] CHOLESTEROL:HDL 2.2 Normal 1.0-5.0 [facility] Comment on above: Performed By: #### Roberth LUTZ, 83723-1, THYR, CBCA #### [facility] ([id number]) [address] [address] Triglyceride [Mass/Vol] 157 mg/dL High 27-150 [facility] Comment on above: Performed By: #### Roberth LUTZ, 88173-8, THYR, CBCA #### [facility] ([id number]) [address] [address] [place] [address] THYROID PROFILEon 06-18-2023 Free T4 [Mass/Vol] 0.85 ng/dL Normal 0.61-1.60 [facility] Comment on above: Performed By: #### Roberth LUTZ, 68213-0, THYR, CBCA #### [facility] ([id number]) [address] [place] [address] TSH 2.32 uIU/mL Normal 0.49-4.67 [facility] Comment on above: Performed By: #### C MP, 61013-1, THYR, CBCA #### [facility] ([id number]) [address] [facility], [address] [place] [address] VC CONSULT FOLLOWUPon 2022 VC CONSULT FOLLOWUP Patient: SARA MALDONADO I Exam Date: 09/06/2022 : 1955 Gender:F Ordering : DR PAPA HUNTER M.D. Admission #: [id number] Family : Order #: [id number] CLICK HERE TO VIEW EXAM RADIOLOGY REPORT [...] Herrera M.D. on 09/06/2022 at 14:53 Normal [facility] VC EXT VENOUS LT LIMITEDon 0 09-06-2022 VC EXT VENOUS LT LIMITED Patient: SANDY MALDONADO Exam Date: 09/06/2022 : 1955 Gender:F Ordering : DR PAPA HUNTER M.D. Admission #: [id number] Family : Order #: [id number] CLICK HERE TO VIEW EXAM RADIOLOGY REPORT [...] Herrera M.D. on 09/06/2022 at 15:02 Normal [facility] VC ENDOVENOUS ABL 1ST V LTon 08-31-2022 VC ENDOVENOUS ABL 1ST V LT Patient: SANDY MALDONADO Exam Date: 08/31/2022 : 1955 Gender:F Ordering : DR PAPA HUNTER M.D. Admission #: [id number] Family : Order #: [id number] CLICK HERE TO VIEW EXAM RADIOLOGY REPORT PROCEDURE: VEIN CENTER ENDOVENOUS ABLATION FIRST VEIN LEFT COMPARISON: VC VENOUS REFLUX NERY LMT, 07/06/2022. INDICATIONS: Pain co-occurrent and due to varicose veins of bilateral legs I83.813 OPERATIVE REPORT: The risks and benefits of the procedure had been previously discussed, and were rediscussed at length. Informed written consent was obtained by pa and López saini. Time out procedure was [...] Waldemar Herrera M.D. on 08/31/2022 at 14:41 [place] VC COMP CONSULTATIONon 07-06 VC COMP CONSULTATION Patient: DO CHRISTIAN MALDONADO Exam Date: 07/06/2022 : 1955 Gender:F Ordering : DR PAPA HUNTER M.D. Admission #: [id number] Family : Order #: [id number] CLICK HERE TO VIEW EXAM RADIOLOGY REPORT [...] for several years. 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 retirement use of continued use of compression stockings 4. Elevated legs and increased physical activity for symptomatic relief Nurse notes, history and physical were reviewed and confirmed, see attached forms. The nurse was present throughout the physical exam and consultation Dictated by: Papa Hunter MD on 07/06/2022 at 12:57 Approved by: Papa Hunter MD on 07/06/2022 at 13:14 Normal [facility] VC VENOUS REFLUX NERY LMTon 0 07-06-2022 VC VENOUS REFLUX NERY LMT Patient: SANDY MALDONADO Exam Date: 07/06/2022 : 1955 Gender:F Ordering : DR PAPA HUNTER M.D. Admission #: [id number] Family : Order #: [id number] CLICK HERE TO VIEW EXAM RADIOLOGY REPORT [...] thrombus. Compressibility: Normal. Flow: Deep venous reflux. Occupational Therapy Asst: Mid medial lower leg 4.7 mm with [...] Hunter MD on 07/06/2022 at 12:40 Normal [facility] Vital Signs Date Time Vital Sign Value Performing Clinician Facility 06-14-2023 09:11-0500 Body height 161.3 cm Papa Whitehead MD Work Phone: [facility] [employer] [facility] 06-14-2023 09:11-0500 Body mass index (BMI) [Ratio] 34 kg/m2 Papa Whitehead MD Work Phone: [facility] 06-14-2023 09:11-0500 Body temperature 96.49 [degF] Papa Whitehead MD Work Phone: [facility] 06-14-2023 09:11-0500 Body weight 88.45 kg Papa Whitehead MD Work Phone: [facility] 06-14-2023 09:11-0500 Diastolic blood pressure 88 mm[Hg] Papa Whitehead MD Work Phone: [facility] 06-14-2023 09:11-0500 Heart rate 80 /min Papa Whitehead MD Work Phone: [facility] 06-14-2023 09:11-0500 Respiratory rate 16 /min Papa Whitehead MD Work Phone: [facility] 06-14-2023 09:11-0500 Systolic blood pressure 130 mm[Hg] Papa Whitehead MD Work Phone: [facility] Encounters Encounter Date Encounter Type Care Provider Facility Start: 09-24-2023 End: 09-25-2023 ambulatory [facility] Start: 08-13-2023 End: 08-13-2023 ambulatory [facility] Start: 07-10-2023 Refill Sandy medina [employer] Work Phone: [facility] Start: 06-18-2023 End: 06-19-2023 ambulatory [facility] Start: 06-14-2023 End: 06-14-2023 ambulatory [facility] Start: 06-14-2023 Encounter for genera l adult medical examination without abnormal findings [facility] Start: 06-14-2023 End: 06-14-2023 Patient encounter procedure Papa Whitehead MD Work Phone: [facility] Comment on above: Routine general medi rajat examination at a health care facility (Primary Dx); Attention deficit hyperactivity disorder (ADHD), predominantly inattentive type; Essential hypertension, benign; BMI 34.0-34.9,adult Start: 06-14-2023 End: 06-14-2023 Patient encounter status Papa Whitehead MD Work Phone: [facility] [employer] Work Phone: Start: 05-10-2023 Refill Papa hackett MD Work Phone: [facility] Comment on above: [...] Adult BMI Screening Adult BMI Screen ing [facility] [employer] [facility] Start: 06-14-2024 Depression Screening Depression Scre [facility] Start: 06-14-2024 Fall Risk Screening Fall Risk Screen ing [facility] [employer] [facility] Start: 06-14-2024 Medicare Annual Well ness Visit Medicare Annual Wellness Visit [facility] Start: 06-14-2024 Tobacco Screening Tobacco Screening [facility] Start: 03-11-2024 Adult BMI Screening Adult BMI Screen ing [facility] [employer] [facility] Start: 12-08-2023 Depression Screening Depression Scre ening [facility] Start: 12-08-2023 Fall Risk Screening Fall Risk Screen ing [facility] Start: 12-08-2023 Tobacco Screening Tobacco Screening [facility] Start: 08-13-2023 End: 08-13-2023 Patient encounter procedure 08/13/2023 9:15 AM EDT Office Visit [facility] [address] [place] [address] Papa Whitehead MD [address] [place], [place] [id number] [facility] Start: 06-14-2023 End: 06-13-2024 CBC W Auto Differential panel - Blood CBC auto differential Lab Routine Essential hypertension, benign BMI 34.0-34.9,adult Expected: 06/14/2023, Expires: 06/13/2024 [facility] Work Phone: Comment on above: Expected: 06/14/2023 , Expires: 06/13/2024 Start: 06-14-2023 End: 06-13-2024 Comprehensive metabolic 2000 panel - Serum or Plasma Comprehensive metabolic panel Lab Routine Essential hypertension, benign BMI 34.0-34.9,adult Expected: 06/14/2023, Expires: 06/13/[address] [facility] Comment on above: Expected: 06/14/2023 , Expires: 06/13/2024 Start: 06-14-2023 End: 06-13-2024 Lipid 1996 panel - Serum or Plasma Lipid profile Lab Routine Essential hypertension, benign BMI 34.0-34.9,adult Expected: 06/14/2023, Expires: 06/13/[address] [facility] Comment on above: Expected: 06/14/2023 , Expires: 06/13/2024 Start: 06-14-2023 End: 06-13-2024 Thyroid profile includes TSH FT4 Thyroid profile includes TSH FT4 Lab Routine Essential hypertension, benign BMI 34.0-34.9,adult Expected: 06/14/2023, Expires: 06/13/[address] [facility] Comment on above: Expected: 06/14/2023 , Expires: 06/13/2024 Start: 06-14-2023 End: 06-14-2023 Patient encounter procedure 06/14/2023 9:15 AM EST Office Visit [facility] [address] [address] Papa Whitehead MD [address] [place] [address] [facility] Start: 12-28-2022 COVID-19 Vaccine () COVID-19 Vaccine () [facility] Start: 03-18-2022 DTaP,Tdap and Td Vaccines (2 - Td or Tdap) DTaP,Tdap and Td Vaccines (2 - Td or Tdap) [facility] Start: 03-03-2015 Screening for malign ant neoplasm of colon Colonoscopy [facility] Start: 12-23-2005 Administration of varicella zoster vaccine Zoster (Shingles) Vaccine (1 of 2) [facility] Start: 12-23-1973 Adult BMI Follow Up Plan Adult BMI Follow Up Plan [facility] Start: 1955 Medicare Annual Well ness Visit Medicare Annual Wellness Visit [facility] Immunizations Immunization Date Immunization Notes Care Provider Ashley desir 02-05-2023 Influenza, injectabl e, Madin Hien Canine Kidney, preservative free, quadrivalent Papa Whitehead MD Work Phone: [facility] 01-19-2022 Influenza, injectabl e, Madin Hien Canine Kidney, preservative free, quadrivalent Papa Whitehead MD Work Phone: [facility] 01-18-2021 influenza, injectabl e, quadrivalent, preservative free Papa Whitehead MD Work Phone: [facility] 05-26-2020 COVID-19, mRNA, LNP- S, PF, 100mcg/0.5mL Dose Papa Whitehead MD Work Phone: [facility] 04-28-2020 COVID-19, mRNA, LNP- S, PF, 100mcg/0.5mL Dose Papa Whitehead MD Work Phone: [facility] 01-26-2020 Seasonal, quadrivale nt, recombinant, injectable influenza vaccine, preservative free Papa Whitehead MD Work Phone: [facility] 02-06-2018 influenza virus vacc ine, unspecified formulation Papa Whitehead MD Work Phone: [facility] 02-06-2018 influenza, injectabl e, quadrivalent, preservative free Papa Whitehead MD Work Phone: [facility] 02-24-2014 influenza virus vacc ine, unspecified formulation Papa Whitehead MD Work Phone: [facility] 02-24-2014 influenza, injectabl e, quadrivalent, contains preservative Papa Whitehead MD Work Phone: [facility] 03-18-2012 influenza virus vacc ine, unspecified formulation Papa Whitehead MD Work Phone: [facility] 03-18-2012 influenza, seasonal, injectable Papa Whitehead MD Work Phone: [facility] 03-18-2012 tetanus toxoid, redu tran diphtheria toxoid, and acellular pertussis vaccine, adsorbed Papa Whitehead MD Work Phone: [facility] 04-27-2009 novel influenza-H1N1 -09, all formulations Papa Whitehead MD Work Phone: [facility] 04-27-2009 novel influenza-H1N1 -09, preservative-free, injectable Papa Whitehead MD Work Phone: [facility] 02-22-2009 novel influenza-H1N1 -09, all formulations Papa Whitehead MD Work Phone: [facility] 02-22-2009 novel Influenza-H1N1 -09, live virus for nasal administration Papa Whitehead MD Work Phone: [facility] Payers Date Payer Category Payer Private Health Insurance [facility] SUPPLEMENT [id number] 2023-Present [phone] [address] [place] [address] [id number] 2023 Unknown [id number] 2021 Medicare MEDICARE MEDICAR E PART A & B [id number] 2021-Present [phone] [address] [place] [address] [id number] 1959 Medicare [id number] 1959 Unknown [id number] 1955 Unknown [id number] 1955 Unknown [id number] 1955 Unknown [id number] 1955 Unknown [id number] 1955 Unknown [id number] 1955 Unknown [id number] .[id number] 1955 Unknown [id number] .[id number] 1955 Unknown [id number] .1286 1955 Unknown [id number] Social History Date Type Detail Facility Start: 04-13-2022 Tobacco smoking status MDIS Ex-smoker [facility] End: 04-29-1969 History of tobacco use Current smoker [facility] End: 04-29-1969 History of tobacco use Cigarette Smoker [facility] Start: 04-13-2022 End: 06-14-2023 Cigarettes smoked current (pack per day) - Reported [address] [facility] Start: 04-13-2022 Tobacco use and exposure Smokeless tobacco non-user [facility] Start: 03-11-2023 End: 06-14-2023 Alcohol intake Current drinker of alcohol (finding) [facility] Start: 04-13-2022 End: 06-14-2023 Social connection and isolation panel [facility] Do you belong to any clubs or organizations such as quaker groups, unions, fraternal or athletic groups, or school groups? Yes [facility] Are you now , , , , never or living with a partner? [facility] How often to you hav e a drink containing alcohol? 2-4 times a month [facility] How many standard dr inks containing alcohol do you have on a typical day? 1 or [address] [facility] How often do you hav e 6 or more drinks on 1 occasion? Never [facility] How hard is it for y ou to pay for the very basics like food, housing, medical care, and heating Not hard at all [facility] Do you feel stress - tense, restless, nervous, or anxious, or unable to sleep at night because your mind is troubled all the time - these days [OSQ] Only a little [facility] Start: 12-13-2020 Education [address] [facility] Start: 1955 Sex Assigned At Female [facility] Start: 01-29-2022 Gender identity Identifies as female gender (finding) [facility] Start: 01-29-2022 Sexual orientation Heterosexual (finding) [facility] Note 07-10-2023 Telephone Encounter - Corina Medrano LPN - 07/10/2023 6:23 AM EDT Note Date & Type Note Facility 07-10-2023 Miscellaneous Notes Formattin g of this note might be different from the original. [facility] requesting refill of Premarin documented in this encounter [facility] Telephone encounter Note 07-10-2023 Telephone Encounter - Corina Medrano LPN - 07/10/2023 6:23 AM EDT Note Date & Type Note Facility 07-10-2023 Telephone encount er Note [facility] requesting refill of Premarin [facility] History of Present illness Narrative 06-14-2023 Papa Whitehead MD - 06/14/2023 9:15 AM EST Note Date & Type Note Facility 06-14-2023 History of Present illness Narrative Images from the original note were not included. [address] [facility] [address] Subjective: Sandy Maldonado is a 67 y.o. female who presents for a Medicare Annual Wellness exam. The following portions of the patient's history were reviewed and updated as appropriate: Health Risk Assessment, allergies, past medical history, past surgical history, social history, family history, and immunization history Accompanied by: self History Provided By: self Language and Other Communication Barriers: Primary Language Spoken: Pashto Highest Level of Education Completed: college graduate [...] Do you have a durable power of employee benefits attorney?: (!) No Hearing Assessment Do you [...] Problem List Diagnosis Date Noted Obesity, morbid ([facility]) 05/24/2022 BMI 32.0-32.9,adult 11/27/2017 Essential hypertension, [...] Recheck in 2m documented in this encounter [facility] Instructions 06-14-2023 Patient Instructions Note Date [...] services: Not applicable documented in this encounter [facility] [employer] [facility] Note 05-10-2023 Telephone Encounter - Corina Medrano LPN - 05/10/2023 1:33 PM EST Note Date & Type Note Facility 05-10-2023 Miscellaneous Notes Formattin g of this note might be different from the original. Patient via MyChart requesting refill of Adderall to [facility] documented in this encounter [facility] Telephone encounter Note 05-10-2023 Telephone Encounter - Corina Medrano LPN - 05/10/2023 1:33 PM EST Note Date & Type Note Facility 05-10-2023 Telephone encount er Note Patient via MyChart requesting refill of Adderall to [facility] Evaluation note Note Date [...] PPG DATE CREATED AUTHOR AUTHOR'S ORGANIZ ATION 09/25/2023 [facility] Reason for Visit (unrecogniz ed section and content) Reason Onset Date Comments Med Refill 05/10/2023 Reason Comments Annual Exam Medicare Wellness Reason Comments Med Refill Care Teams (unrecognized sec tion and content) 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 [address] PCP - General Family Medicine 07/24/16 FOR [...] BE BASED ON THE PRIMARY CLINICAL RECORDS. [employer] provides no warranty or guarantee of the accuracy or completeness of information in this document.
== END 2023-10-03 09:24 | disposition home or self-care (01) ==
LOC: VC 09:33
PROVIDERS: PCP Radiology Diagnostic Radiology; Visit Provider Radiology Diagnostic Radiology
DX: I80.01 Phlebitis and thrombophlebitis of superficial vessels of right lower extremity (principal)
CPT/HCPCS: 93971; G0463

== ENCOUNTER 2024-01-03 10:07 | Outpatient (OUT) | payer MEDICARE, SELFPAY ==
--- NOTE | 2024-01-03 07:39 | V.VEINS.HP ---
Vital Signs 01/03/24 10:20 Height 5 ft 4 in Weight 86.183 kg BMI 32.6 BP 126/74 BP Location Right Brachial BP Position Sitting BP Cuff Size Adult BP Source Manual Cuff Respiration 16 Pulse 95 H Pulse Source Monitor Pulse Oximetry (%) 95 Oxygen Delivery Method Room Air Comment The patient's blood pressure is elevated. Varicose Veins Patient is a 68 year old female in this day with a history of bulging, dilated, discolored veins. Patient c/o bilateral leg pain, swelling, and muscle cramps. Patient describes the symptoms as aching, heavines, itching, dull pain. Patient rates pain at a 6 on a scale of 1-10. Onset is 4 years ago. Patient has worn bilateral leg knee high compression stockings for approximately 3 years. Patient in this day for microfoam chemical ablation. Waldemar Quintana MD personally performed the services described in this documentation, as scribed by López Colvin RN in my presence and it is both accurate and complete. ILópez RN, am scribing for, and in the presence of, Dr. Waldemar Herrera and in the presence of the patient. . thigh: bilateral (symptoms symmetrical bilaterally), knee: bilateral, calf: bilateral, ankle: bilateral and bates: bilateral aching, cramping and dull 6 4years Worsened in recent months: Yes standing, sitting and walking analgesics (Tylenol), elevating extremities, compression stockings and exercise Reports muscle spasms of leg, fatigue, heaviness, limb pain, edema and leg edema History of lower extremity trauma: No Superficial thrombophlebitis: No Family history of varicose veins: yes (father) Has patient had previous lower extremity venous surgery: No Patient has previously received the following treatment(s) for lower extremity varicose veins: Reports none Does patient have a history of : yes Does patient intend to have future pregnancies: no Has patient had lower extremity venous scan with relux testing: No Support hose used: Yes Problems walking or doing physical activity: Yes How does it affect you: exericse limit decreased due to pain Do you walk much: Yes Do you stand much: Yes Review of Systems ROS Narrative Waldemar Quintana MD personally performed the services described in this documentation, as scribed by López Colvin RN in my presence and it is both accurate and complete. ILópez RN, am scribing for, and in the presence of, Dr. Waldemar Herrera and in the presence of the patient. Status of ROS 10 or more systems reviewed and unremarkable except as noted in history and below Cardiovascular Reports: edema Integumentary/Breast Reports: itching, redness, skin pain and changes in skin color Neurological Reports: weakness in extremities [facility] Medical History (Updated 01/03/24 @ 07:51 by López Colvin) Varicose veins of bilateral lower extremities with pain ?I83.813 - Varicose veins of bilateral lower extremities with pain (ICD-10) Hypertension ?I10 - Essential (primary) hypertension (ICD-10) Surgical History (Updated 01/03/24 @ 11:52 by López Colvin) S/P sclerotherapy of varicose veins ?Z98.890 - Other specified postprocedural states (ICD-10) ?Z86.79 - Personal history of other diseases of the circulatory system (ICD-10) S/P sclerotherapy of varicose veins ?Z98.890 - Other specified postprocedural states (ICD-10) ?Z86.79 - Personal history of other diseases of the circulatory system (ICD-10) H/O tubal ligation ?Z98.51 - Tubal ligation status (ICD-10) History of cholecystectomy ?Z90.49 - Acquired absence of other specified parts of digestive tract (ICD-10) H/O: hysterectomy ?Z90.710 - Acquired absence of both cervix and uterus (ICD-10) Family History (Updated 01/03/24 @ 07:52 by López Colvin) Other Family history of hypertension Family history of stroke Heart disease Pain due to varicose veins of both lower extremities Social History (Updated 01/03/24 @ 07:53 by López Colvin) Within the past year, how often did you have a drink containing alcohol: monthly or less Smoking status: Never smoker Non-prescribed substance use: denies use Meds Home Medications and Allergies Home Medications ?Medication ?Instructions ?Recorded ?Confirmed ?Type conjugated estrogens 0.3 mg tablet 0.3 mg PO DAILY 01/03/24 01/03/24 History (Premarin) dextroamphetamine-amphetamine 5 mg 1.25 mg PO DAILY 01/03/24 01/03/24 History tablet (Adderall) triamterene 37.5 1 cap PO DAILY 01/03/24 01/03/24 History mg-hydrochlorothiazide 25 mg capsule Allergies Allergy/AdvReac Type Severity Reaction Status Date / Time No Known Drug Allergies Allergy Verified 01/03/24 07:54 Exam Narrative Exam Narrative: Waldemar Quintana MD personally performed the services described in this documentation, as scribed by López Colvin RN in my presence and it is both accurate and complete. López Quintana RN, am scribing for, and in the presence of, Dr. Waldemar Herrera and in the presence of the patient. Constitutional Documenting provider has reviewed patient's vital signs: yes Common normals: oriented x3 Cardio Peripheral pulses: posterior tibial pulses present and dorsalis pedis pulses present Extremity Common normals: normal capillary refill General: calf tenderness and edema Right lower extremity: lower leg Right lower leg: inspection and palpation Left lower extremity: lower leg Left lower leg: inspection and palpation Neuro Common normals: oriented x3 Assessment and Plan Assessment and Plan (1) Varicose veins of bilateral lower extremities with pain: Plan Patient to return for f/u examination with physician along with left leg limited u/s Waldemar Quintana MD personally performed the services described in this documentation, as scribed by López Colvin RN in my presence and it is both accurate and complete. López Quintana RN, am scribing for, and in the presence of, Dr. Waldemar Herrera and in the presence of the patient. Procedures Procedure Instructions Procedures Left leg microfoam chemical ablation/Varithena: Risks and benefits of the procedure were discussed at length and informed written consent was obtained.? Time-out procedure was performed and the correct patient and procedure were confirmed.? Staff present during time-out: López Colvin RN and Waldemar Herrera MD.? Patient prepped and procedure performed in usual sterile fashion.? Patient was placed in Trendelenburg prior to Polidocanol/Varithena injections. Sclerosing Agent:?? 8cc 1% Polidocanol/Varithena Site Injected: left lecc varithena administered in to a 5mm varicose vein mid anterior lower leg Number of Injections:? 1 The patient tolerated the procedure well without complication.? Hemostasis was obtained and thigh-high compression stocking was applied with foam pads.? Instructed patient to wear stocking for at least 96 hours and sleep with it and only remove for showering.? The patient was instructed to? wear stocking for 2 weeks.? Patient verbalizes understanding and states they will comply.? Patient was given post-procedure instructions. Patient was discharged in good condition.? Scheduled to undergo limited venous ultrasound and? exam on 01/10/2024. IWaldemar MD personally performed the services described in this documentation, as scribed by López Colvin RN in my presence and it is both accurate and complete. López Quintana RN, am scribing for, and in the presence of, Dr. Waldemar Herrera and in the presence of the patient.
--- NOTE | 2024-01-03 07:56 | P.DS_ITS ---
Discharge Plan Discharge Disposition: Home, Self-Care Outpatient Diagnostics: VC Facility EST LMTD (Routine) Timeframe: 2 Weeks Facility: [facility] - Location: [facility] Ordered By: Waldemar Herrera VC EXT Venous LT Limited (Routine) Timeframe: 2 Weeks Facility: [facility] - Location: Vein Center Ordered By: Waldemar Herrera Follow Up Appointments: 01/10/2024 Plan of Treatment: Patient to return for f/u examination with physician along with left leg limited u/s Patient Instructions: Polidocanol (By injection) (Asclera, Varithena) Print Language: Botswanan Discharge Date/Time: 01/03/24 11:56
--- NOTE | 2024-01-03 10:11 | VEIN_ITS ---
[address] [address] Patient Name: SANDY BOBO MRN: [id number] date: 1955 Sex: F Assigned Patient Location: Current Patient Location: Accession/Order Number: [id number] Exam Date: 01/03/2024 10:11 Report Date: 01/03/2024 12:02 At the request of: PAPA HUNTER Procedure: VC INJ Foam Sclerosant WUS BRAN MIXER PROCEDURE: VC INJ Foam Sclerosant WUS BRAN MIXER HISTORY: Pain due to varicose veins of bilateral legs I83.813 Pre-operative Diagnosis: CEAP class C3 venous insufficiency with pain, tenderness, edema and incompetent branch saphenous vein(s), chronic venous insufficiency left leg secondary to venous incompetence Post-operative Diagnosis: CEAP class C3 venous insufficiency with pain, tenderness, edema and incompetent branch saphenous vein(s), chronic venous insufficiency left leg secondary to venous incompetence Procedure Performed: 1. Ultrasound-guided microfoam chemical ablation with Varithenaregistered 2. Intraoperative ultrasound guidance Physician: Waldemar Herrera M.D. Anesthesia: None Indications for Procedure: 68 year old female. Symptoms including lower extremity pain, swelling, dilated bulging veins for many years despite conservative medical therapy including medical compression stockings, exercise and analgesics. Prior procedures include endovenous laser ablation and microfoam chemical ablation. Multiple incompetent varicosities of the left leg. Duplex scan showed reflux and enlarged diameters up to 5 mm. The patient underwent informed consent including management options where the complications of infection, bleeding, pain, and skin injury were discussed. Particular attention was spent discussing thrombus extension and deep vein thrombosis as well as the possibility of pulmonary embolus and treatment with oral or injectable blood thinners. Procedure: The patient walked to the procedure room. All applicable staff donned appropriate apparel. A procedure timeout was performed to confirm correct patient, correct extremity, correct procedure, and correct room set-up including presence of all applicable supplies, devices, and drugs. A duplex ultrasound, performed by myself confirmed the location and incompetence of branch saphenous varicosities and their course was marked on the skin together with the dilated tributaries. The extent of treatment of the vein and the associated varicosities was determined through ultrasound mapping. The skin was prepped and then punctured with a butterfly needle and advanced under ultrasound guidance. The Varithenaregistered canister was activated and the canister was primed and purged as required in the instructions for use. Varithenaregistered was drawn into a sterile syringe. Varithenaregistered was slowly administered at 0.5-1.0 cc/second with close observation by ultrasound of its course in the vessels. Total volume utilized was: 8 mL injected into a 5 mm varicosity mid anterior lower leg. Following administration of Varithenaregistered the leg was elevated and the patient was asked to repeatedly dorsiflex the ankle to limit flow of Varithenaregistered into perforating veins. Once appropriate spasm had been confirmed in the treated veins, the vascular catheter was removed from the leg and light pressure was applied over the puncture site for hemostasis. The common femoral and deep superficial veins were then evaluated for flow and compressibility prior to dressing placement. The lower extremity was kept elevated at 45 degrees above the horizontal and cording material was applied over the saphenous segments and tributaries to allow for eccentric compression over the target vessels including the targeted saphenous vein(s). A multilayer dressing was applied consisting of foam pads, coban and thigh-high 20-30 mm Hg compression elastic support hose were placed on the patient. The leg was lowered only after compression had been applied and the patient was immediately ambulatory. The patient ambulated 10 minutes under supervision and was without apparent concerns at time of release. Post-care instructions include advising patient to keep post-treatment bandages in place and dry for 48 hours, avoid extended periods of inactivity, avoid heavy exercise for one week, wear compression stockings on the treated leg continuously for two weeks, to walk daily for 10 minutes over the next month. The patient was instructed to take an anti-inflammatory medicine as needed and to follow up for color duplex scan of the Saphenous veins, the treated branch saphenous varicosities, the adjacent deep veins, and additional treatment within 7 days. PERSONNEL: López Colvin RN Electronically authenticated by: WALDEMAR HERRERA Date: 01/03/2024 12:02
[2024-01-03 10:20] VITALS: BP 126/74; PULSE 95; O2SAT 95; BMI 32.6
--- OUTSIDE RECORDS SUMMARY | 2024-01-03 10:28 | XMS_ITS | CCD ---
Author Organization [facility] Care Team Providers Care Inspector Cold Working Name Role Phone ELSA, DR PAPA Agrawal [...] Unavailable WEST, DR PAPA Agrawal Attending Unavailable Timoteorance Papa ENGLAND Primary Care Provider PAPA WHITEHEAD Attending Unavailable DEFRANCE, PAPA Avila Referring Unavailable [...] Take by mouth. 0 Active estrogens, conjugated (halfway) 0.9 mg oral tablet (4 sources) Estrogen [...] 09-24-2023 Albumin [Mass/Vol] 4.0 g/dL Normal 3.2-5.3 [facility] Comment on above: Performed By: #### L IVR #### [facility] ([id number]) [address], [address] [place] [address] ALP [Catalytic activity/Vol] 104 U/L Normal 39-130 [facility] Comment on above: Performed By: #### L IVR #### [facility] ([id number]) [address], [address] [place] [address] ALT [Catalytic activity/Vol] 17 U/L Normal 0-31 [facility] Comment on above: Performed By: #### L IVR #### [facility] ([id number]) [address], [facility] [address] [place] [address] AST [Catalytic activity/Vol] 18 U/L Normal 0-41 [facility] Comment on above: Performed By: #### L IVR #### [facility] ([id number]) [address], [address] [place] [address] Bilirubin [Mass/Vol] 0.7 mg/dL Normal 0.3-1.2 [facility] Comment on above: Performed By: #### L IVR #### [facility] ([id number]) [address], [address] [place] [address] Bilirubin.direct [Mass/Vol] 0.1 mg/dL Normal 0.0-0.4 [facility] Comment on above: Performed By: #### L IVR #### [facility] ([id number]) [address], [address] [place] [address] Protein [Mass/Vol] 6.9 g/dL Normal 6.0-8.0 [facility] Comment on above: Performed By: #### L IVR #### [facility] ([id number]) [address], [address] [place] [address] CBC AND AUTO DIFFon 06-18-19 ABSOLUTE BASOPHIL 0.0 X10E9/L Normal 0.0-0.2 [facility] Comment on above: Performed By: #### Roberth LUTZ, 56581-1, THYR, CBCA #### [facility] ([id number]) [address] [place] [address] ABSOLUTE NEUTROPHIL 4.3 X10E9/L Normal 1.5-6.6 [facility] Comment on above: Performed By: #### Roberth LUTZ, 17628-7, THYR, CBCA #### [facility] ([id number]) [address] [address] [place] [address] Basophils/100 WBC (Bld) 0.4 % Normal [facility] Comment on above: Performed By: #### Roberth LUTZ, 66430-2, THYR, CBCA #### [facility] ([id number]) [address] [place] [address] Eosinophils (Bld) [#/Vol] 0.1 10*3/uL Normal 0.0-0.4 [facility] Comment on above: Performed By: #### C BOLIVAR, 11380-2, THYR, CBCA #### [facility] ([id number]) [address], [address] [place] [address] Eosinophils/100 WBC (Bld) 1.3 % Normal [facility] Comment on above: Performed By: #### C BOLIVAR 77096-5, THYR, CBCA #### [facility] ([id number]) [address], [facility] [address] [place] [address] Erythrocyte distribution width (RBC) [Ratio] 13.4 % Normal 11.5-15.0 [facility] Comment on above: Performed By: #### C BOLIVAR, 75977-9, THYR, CBCA #### [facility] ([id number]) [address], [facility] [address] [place] [address] Hematocrit (Bld) [Volume fraction] 41.7 % Normal 35-47 [facility] Comment on above: Performed By: #### C BOLIVAR 44542-7, THYR, CBCA #### [facility] ([id number]) [address] [place] [address] Hemoglobin (Bld) [Mass/Vol] 14.1 g/dL Normal 11.7-15.5 [facility] Comment on above: Performed By: #### C BOLIVAR, 67129-3, THYR, CBCA #### [facility] ([id number]) [address] [address] [place] [address] Lymphocytes (Bld) [#/Vol] 3.4 10*3/uL Normal 1.0-3.5 [facility] Comment on above: Performed By: #### C BOLIVAR, 40127-4, THYR, CBCA #### [facility] ([id number]) [address] [address] [place] [address] Lymphocytes/100 WBC (Bld) 41.3 % Normal [facility] Comment on above: Performed By: #### C BOLIVAR, 86571-3, THYR, CBCA #### [facility] ([id number]) [address], [address] [place] [address] MCH (RBC) [Entitic mass] 28.5 pg Normal 27-34 [facility] Comment on above: Performed By: #### C BOLIVAR 89968-5, THYR, CBCA #### [facility] ([id number]) [address], [facility] [address] [place] [address] MCHC (RBC) [Mass/Vol] 33.8 g/dL Normal 32-36 [facility] Comment on above: Performed By: #### C BOLIVAR 76399-3, THYR, CBCA #### [facility] ([id number]) [address], [address] [place] [address] MCV (RBC) [Entitic vol] 84 fL Normal 80-100 [facility] Comment on above: Performed By: #### Roberth LUTZ, 46980-2, THYR, CBCA #### [facility] ([id number]) [address], [address] [place] [address] Monocytes (Bld) [#/Vol] 0.4 10*3/uL Normal 0-0.9 [facility] Comment on above: Performed By: #### Roberth LUTZ, 94436-5, THYR, CBCA #### [facility] ([id number]) [address], [address] [place] [address] Monocytes/100 WBC (Bld) 4.4 % Normal [facility] Comment on above: Performed By: #### Roberth LUTZ, 26792-9, THYR, CBCA #### [facility] ([id number]) [address], [address] [place] [address] Neutrophils/100 WBC (Bld) 52.6 % Normal [facility] Comment on above: Performed By: #### C BOLIVAR, 35595-3, THYR, CBCA #### [facility] ([id number]) [address] [address] [place] [address] Platelet mean volume (Bld) [Entitic vol] 7.8 fL Normal 7-12 [facility] Comment on above: Performed By: #### C BOLIVAR, 92194-3, THYR, CBCA #### [facility] ([id number]) [address] [place] [address] Platelets (Bld) [#/Vol] 292 10*3/uL Normal 150-450 [facility] Comment on above: Performed By: #### C BOLIVAR, 24806-3, THYR, CBCA #### [facility] ([id number]) [address] [place] [address] RBC COUNT 4.94 X10E12/L Normal 3.80-5.20 [facility] Comment on above: Performed By: #### C BOLIVAR, 67043-3, THYR, CBCA #### [facility] ([id number]) [address] [address] [place] [address] WBC (Bld) [#/Vol] 8.2 10*3/uL Normal 4.0-11.0 [facility] Comment on above: Performed By: #### C BOLIVAR, 80833-9, THYR, CBCA #### [facility] ([id number]) [address], [address] [place] [address] COMPREHENSIVE METABOLIC PANE Willie 06-18-2023 Albumin [Mass/Vol] 4.1 g/dL Normal 3.2-5.3 [facility] Comment on above: Performed By: #### C BOLIVAR, 14295-7, THYR, CBCA #### [facility] ([id number]) [address], [address] [place] [address] ALP [Catalytic activity/Vol] 110 U/L Normal 39-130 [facility] Comment on above: Performed By: #### C BOLIVAR, 14985-8, THYR, CBCA #### [facility] ([id number]) [address], [address] [place] [address] ALT [Catalytic activity/Vol] 15 U/L Normal 0-31 [facility] Comment on above: Performed By: #### C BOLIVAR, 50224-6, THYR, CBCA #### [facility] ([id number]) [address], [address] [place] [address] Anion gap [Moles/Vol] 9 mmol/L Normal 5-15 [facility] Comment on above: Performed By: #### C BOLIVAR, 00381-3, THYR, CBCA #### [facility] ([id number]) [address], [address] [place] [address] AST [Catalytic activity/Vol] 15 U/L Normal 0-41 [facility] Comment on above: Performed By: #### C BOLIVAR, 67535-3, THYR, CBCA #### [facility] ([id number]) [address], [address] [place] [address] Bilirubin [Mass/Vol] 0.6 mg/dL Normal 0.3-1.2 [facility] Comment on above: Performed By: #### C BOLIVAR, 00341-2, THYR, CBCA #### [facility] ([id number]) [address], [address] [place] [address] Calcium [Mass/Vol] 8.8 mg/dL Normal 8.5-10.5 [facility] Comment on above: Performed By: #### C BOLIVAR, 02391-4, THYR, CBCA #### [facility] ([id number]) [address], [address] [place] [address] Chloride [Moles/Vol] 104 mmol/L Normal 98-109 [facility] Comment on above: Performed By: #### C BOLIVAR 50760-3, THYR, CBCA #### [facility] ([id number]) [address], [facility] [address] [place] [address] CO2 [Moles/Vol] 28 mmol/L Normal 22-32 [facility] Comment on above: Performed By: #### C BOLIVAR 75926-4, THYR, CBCA #### [facility] ([id number]) [address] [address] [place] [address] Creatinine [Mass/Vol] 0.66 mg/dL Normal 0.40-1.00 [facility] Comment on above: Result Comment: METH OD TRACEABLE TO IDMS STANDARD Performed By: #### C BOLIVAR 52928-9, THYR, CBCA #### [facility] ([id number]) [address], [address] [place] [address] eGFR (CKD-EPI) NON-RACE DEPENDENT >90 Normal >59 [facility] Comment on above: Result Comment: Reported eGFR is based on the CKD-EPI 2020 equation that does not use a race coefficient. Performed By: #### C BOLIVAR 81105-6, THYR, CBCA #### [facility] ([id number]) [address], [facility] [address] [place] [address] Glucose [Mass/Vol] 100 mg/dL High 65-99 [facility] Comment on above: Performed By: #### C BOLIVAR 48611-1, THYR, CBCA #### [facility] ([id number]) [address] [address] [place] [address] Potassium [Moles/Vol] 3.8 mmol/L Normal 3.5-5.0 [facility] Comment on above: Performed By: #### C BOLIVAR 95600-3, THYR, CBCA #### [facility] ([id number]) [address], [address] [place] [address] Protein [Mass/Vol] 7.0 g/dL Normal 6.0-8.0 [facility] Comment on above: Performed By: #### Roberth LUTZ, 24115-7, THYR, CBCA #### [facility] ([id number]) [address], [address] [place] [address] Sodium [Moles/Vol] 141 mmol/L Normal 134-146 [facility] Comment on above: Performed By: #### Roberth LUTZ, 98427-8, THYR, CBCA #### [facility] ([id number]) [address], [address] [place] [address] Urea nitrogen [Mass/Vol] 15 mg/dL Normal 5-27 [facility] Comment on above: Performed By: #### Roberth LUTZ, 01246-0, THYR, CBCA #### [facility] ([id number]) [address], [address] [place] [address] Lipid 1996 panelon 4 Cholesterol [Mass/Vol] 151 mg/dL Normal 150-200 [facility] Comment on above: Performed By: #### Roberth LUTZ, 48041-4, THYR, CBCA #### [facility] ([id number]) [address], [address] [place] [address] Cholesterol in HDL [Mass/Vol] 68 mg/dL Normal >39 [facility] Comment on above: Result Comment: HDL <40 mg/dL - High Risk HDL > or = 40mg/dL- Desirable HDL >60 mg/dL - Negative Risk Performed By: #### C BOLIVAR, 11862-8, THYR, CBCA #### [facility] ([id number]) [address] [address] [place] [address] Cholesterol in LDL [Mass/Vol] 52 mg/dL Normal <130 [facility] Comment on above: Result Comment: LDL <100 mg/dL - Desirable LDL >160 mg/dL - High Risk Performed By: #### C BOLIVAR, 17962-9, THYR, CBCA #### [facility] ([id number]) [address] [address] [place] [address] Cholesterol in VLDL [Mass/Vol] 31 mg/dL High 0-30 [facility] Comment on above: Performed By: #### C BOLIVAR, 79499-2, THYR, CBCA #### [facility] ([id number]) [address] [address] [place] [address] CHOLESTEROL:HDL 2.2 Normal 1.0-5.0 [facility] Comment on above: Performed By: #### C BOLIVAR, 98160-8, THYR, CBCA #### [facility] ([id number]) [address] [place] [address] Triglyceride [Mass/Vol] 157 mg/dL High 27-150 [facility] Comment on above: Performed By: #### C BOLIVAR, 65157-0, THYR, CBCA #### [facility] ([id number]) [address] [place] [address] THYROID PROFILEon 06-18-2023 Free T4 [Mass/Vol] 0.85 ng/dL Normal 0.61-1.60 [facility] Comment on above: Performed By: #### C BOLIVAR, 15662-8, THYR, CBCA #### [facility] ([id number]) [address] [place] [address] TSH 2.32 uIU/mL Normal 0.49-4.67 [facility] Comment on above: Performed By: #### C , 59730-2, THYR, CBCA #### [facility] ([id number]) [address] [place] [address] VC CONSULT FOLLOWUPon 2022 VC CONSULT FOLLOWUP Patient: SARA MALDONADO I Exam Date: 09/06/2022 : 1955 Gender:F Ordering : DR PAPA HUNTER M.D. Admission #: [id number] Family : Order #: [id number] CLICK HERE TO VIEW EXAM RADIOLOGY REPORT [...] Herrera M.D. on 09/06/2022 at 14:53 Normal [facility] VC EXT VENOUS LT LIMITEDon 0 09-06-2022 VC EXT VENOUS LT LIMITED Patient: SANDY MALDONADO Exam Date: 09/06/2022 : 1955 Gender:F Ordering : DR PAPA HUNTER M.D. Admission #: [id number] Family : Order #: [id number] CLICK HERE TO VIEW EXAM RADIOLOGY REPORT [...] Herrera M.D. on 09/06/2022 at 15:02 Normal [facility] VC ENDOVENOUS ABL 1ST V LTon 08-31-2022 VC ENDOVENOUS ABL 1ST V LT Patient: SANDY MALDONADO Exam Date: 08/31/2022 : 1955 Gender:F Ordering : DR PAPA HUNTER M.D. Admission #: [id number] Family : Order #: [id number] CLICK HERE TO VIEW EXAM RADIOLOGY REPORT PROCEDURE: VEIN CENTER ENDOVENOUS ABLATION FIRST VEIN LEFT COMPARISON: VC VENOUS REFLUX NERY LMT, 07/06/2022. INDICATIONS: Pain co-occurrent and due to varicose veins of bilateral legs I83.813 OPERATIVE REPORT: The risks and benefits of the procedure had been previously discussed, and were rediscussed at length. Informed written consent was obtained by ne and López Colvin assisted. Time out procedure [...] Waldemar Herrera M.D. on 08/31/2022 at 14:41 [facility] VC COMP CONSULTATIONon 07-06 VC COMP CONSULTATION Patient: DO CHRISTIAN MALDONADO Exam Date: 07/06/2022 : 1955 Gender:F Ordering : DR PAPA HUNTER M.D. Admission #: [id number] Family : Order #: [id number] CLICK HERE TO VIEW EXAM RADIOLOGY REPORT [...] years. 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 prison use of continued use of compression stockings 4. Elevated legs and increased physical activity for symptomatic relief Nurse notes, history and physical were reviewed and confirmed, see attached forms. The nurse was present throughout the physical exam and consultation Dictated by: Papa Hunter MD on 07/06/2022 at 12:57 Approved by: Papa Hunter MD on 07/06/2022 at 13:14 Normal [facility] VC VENOUS REFLUX NERY LMTon 0 07-06-2022 VC VENOUS REFLUX NERY LMT Patient: SANDY MALDONADO Exam Date: 07/06/2022 : 1955 Gender:F Ordering : DR PAPA HUNTER M.D. Admission #: [id number] Family : Order #: [id number] CLICK HERE TO VIEW EXAM RADIOLOGY REPORT [...] thrombus. Compressibility: Normal. Flow: Deep venous reflux. Process Laboratory Specialist: Mid medial lower leg 4.7 mm with [...] Hunter MD on 07/06/2022 at 12:40 Normal [facility] Vital Signs Date Time Vital Sign Value Performing Clinician Facility 06-14-2023 [id number] Body height 161.3 cm Papa Whitehead MD Work Phone: [facility] [employer] [facility] 06-14-2023 09:11-0500 Body mass index (BMI) [Ratio] 34 kg/m2 Papa Whitehead MD Work Phone: [facility] 06-14-2023 09:11-0500 Body temperature 96.49 [degF] Papa Whitehead MD Work Phone: [facility] 06-14-2023 09:11-0500 Body weight 88.45 kg Papa Whitehead MD Work Phone: [facility] 06-14-2023 09:11-0500 Diastolic blood pressure 88 mm[Hg] Papa Whitehead MD Work Phone: [facility] 06-14-2023 09:11-0500 Heart rate 80 /min Papa Whitehead MD Work Phone: [facility] 06-14-2023 09:11-0500 Respiratory rate 16 /min Papa Whitehead MD Work Phone: [facility] 06-14-2023 09:11-0500 Systolic blood pressure 130 mm[Hg] Papa Whitehead MD Work Phone: 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 Work Phone: [facility] Start: 06-18-2023 End: 06-19-2023 ambulatory [facility] Start: 06-14-2023 End: 06-14-2023 ambulatory [facility] Start: 06-14-2023 Encounter for genera l adult medical examination without abnormal findings [facility] Start: 06-14-2023 End: 06-14-2023 Patient encounter procedure Papa Whitehead MD Work Phone: [facility] Comment on above: Routine general medi rajat examination at a health care facility (Primary Dx); Attention deficit hyperactivity disorder (ADHD), predominantly inattentive type; Essential hypertension, benign; BMI 34.0-34.9,adult Start: 06-14-2023 End: 06-14-2023 Patient encounter status Papa Whitehead MD [facility] Work Phone: Start: 05-10-2023 Refill Papa hackett MD Work Phone: [facility] Comment on [...] Adult BMI Screening Adult BMI Screen ing [facility] [employer] [facility] Start: 06-14-2024 Depression Screening Depression Scre ening [facility] [employer] Start: 06-14-2024 Fall Risk Screening Fall Risk Screen ing [facility] [employer] Start: 06-14-2024 Medicare Annual Well ness Visit Medicare Annual Wellness Visit [facility] [employer] [facility] Start: 06-14-2024 Tobacco Screening Tobacco Screening [facility] [employer] Start: 03-11-2024 Adult BMI Screening Adult BMI Screen ing [facility] [employer] Start: 12-08-2023 Depression Screening Depression Scre ening [facility] [employer] [facility] Start: 12-08-2023 Fall Risk Screening Fall Risk Screen ing [facility] Start: 12-08-2023 Tobacco Screening Tobacco Screening [facility] Start: 08-13-2023 End: 08-13-2023 Patient encounter procedure 08/13/2023 9:15 AM EDT Office Visit [facility] [address] [place] [id number] Papa Whitehead MD [address] [place] [address] [facility] Start: 06-14-2023 End: 06-13-2024 CBC W Auto Differential panel - Blood CBC auto differential Lab Routine Essential hypertension, benign BMI 34.0-34.9,adult Expected: 06/14/2023, Expires: 06/13/2024 [facility] Work Phone: Comment on above: Expected: 06/14/2023 , Expires: 06/13/2024 Start: 06-14-2023 End: 06-13-2024 Comprehensive metabolic 2000 panel - Serum or Plasma Comprehensive metabolic panel Lab Routine Essential hypertension, benign BMI 34.0-34.9,adult Expected: 06/14/2023, Expires: 06/13/2024 [facility] Comment on above: Expected: 06/14/2023 , Expires: 06/13/2024 Start: 06-14-2023 End: 06-13-2024 Lipid 1996 panel - Serum or Plasma Lipid profile Lab Routine Essential hypertension, benign BMI 34.0-34.9,adult Expected: 06/14/2023, Expires: 06/13/2024 [facility] Comment on above: Expected: 06/14/2023 , Expires: 06/13/2024 Start: 06-14-2023 End: 06-13-2024 Thyroid profile includes TSH FT4 Thyroid profile includes TSH FT4 Lab Routine Essential hypertension, benign BMI 34.0-34.9,adult Expected: 06/14/2023, Expires: 06/13/2024 [facility] Comment on above: Expected: 06/14/2023 , Expires: 06/13/2024 Start: 06-14-2023 End: 06-14-2023 Patient encounter procedure 06/14/2023 9:15 AM EST Office Visit [facility] [address] [place] [address] Papa Whitehead MD [address] [place] [address] [facility] Start: 12-28-2022 COVID-19 Vaccine ( season) COVID-19 Vaccine ( season) [facility] Start: 03-18-2022 DTaP,Tdap and Td Vaccines (2 - Td or Tdap) DTaP,Tdap and Td Vaccines (2 - Td or Tdap) [facility] Start: 03-03-2015 Screening for malign ant neoplasm of colon Colonoscopy [facility] Start: 12-23-2005 Administration of varicella zoster vaccine Zoster (Shingles) Vaccine (1 of 2) [facility] Start: 12-23-1973 Adult BMI Follow Up Plan Adult BMI Follow Up Plan [facility] Start: 1955 Medicare Annual Well ness Visit Medicare Annual Wellness Visit [facility] Immunizations Immunization Date Immunization Notes Care Provider [facility] 02-05-2023 Influenza, injectabl e, Madin Blair Canine Kidney, preservative free, quadrivalent Papa Whitehead MD Work Phone: [facility] 01-19-2022 Influenza, injectabl e, Madin Hien Canine Kidney, preservative free, quadrivalent Papa Whitehead MD Work Phone: [facility] 01-18-2021 influenza, injectabl e, quadrivalent, preservative free Papa Whitehead MD Work Phone: [facility] 05-26-2020 COVID-19, mRNA, LNP- S, PF, 100mcg/0.5mL Dose Papa Whitehead MD Work Phone: [facility] 04-28-2020 COVID-19, mRNA, LNP- S, PF, 100mcg/0.5mL Dose Papa Whitehead MD Work Phone: [facility] 01-26-2020 Seasonal, quadrivale nt, recombinant, injectable influenza vaccine, preservative free Papa Whitehead MD Work Phone: [facility] 02-06-2018 influenza virus vacc ine, unspecified formulation Papa Whitehead MD Work Phone: [facility] 02-06-2018 influenza, injectabl e, quadrivalent, preservative free Papa Whitehead MD Work Phone: [facility] 02-24-2014 influenza virus vacc ine, unspecified formulation Papa Whitehead MD Work Phone: [facility] 02-24-2014 influenza, injectabl e, quadrivalent, contains preservative Papa Whitehead MD Work Phone: [facility] 03-18-2012 influenza virus vacc ine, unspecified formulation Papa Whitehead MD Work Phone: [facility] 03-18-2012 influenza, seasonal, injectable Papa Whitehead MD Work Phone: [facility] 03-18-2012 tetanus toxoid, redu tran diphtheria toxoid, and acellular pertussis vaccine, adsorbed Papa Whitehead MD Work Phone: [facility] 04-27-2009 novel influenza-H1N1 -09, all formulations Papa Whitehead MD Work Phone: [facility] 04-27-2009 novel influenza-H1N1 -09, preservative-free, injectable Papa Whitehead MD Work Phone: [facility] 02-22-2009 novel influenza-H1N1 -09, all formulations Papa Whitehead MD Work Phone: [facility] 02-22-2009 novel Influenza-H1N1 -09, live virus for nasal administration Papa Whitehead MD Work Phone: [facility] Payers Date Payer Category Payer Private Health Insurance [facility] SUPPLEMENT [id number] 2023-Present [phone] [address] [place] [address] [id number] 2023 Unknown [id number] 2021 Medicare MEDICARE MEDICAR E PART A & B [id number] 2021-Present [phone] [address] [place] [address] [id number] 1959 Medicare [id number] 1959 Unknown [id number] 1955 Unknown [id number] 1955 Unknown [id number] 1955 Unknown [id number] 1955 Unknown [id number] 1955 Unknown [id number] 1955 Unknown [id number] 1955 Unknown [id number] .[id number] 1955 Unknown [id number] .[id number] 1955 Unknown [id number] Social History Date Type Detail Facility Start: 04-13-2022 Tobacco smoking status NHIS Ex-smoker [facility] End: 04-29-1969 History of tobacco use Current smoker [facility] End: 04-29-1969 History of tobacco use Cigarette Smoker [facility] Start: 04-13-2022 End: 06-14-2023 Cigarettes smoked current (pack per day) - Reported 1 [facility] Start: 04-13-2022 Tobacco use and exposure Smokeless tobacco non-user [facility] Start: 03-11-2023 End: 06-14-2023 Alcohol intake Current drinker of alcohol (finding) [facility] Start: 04-13-2022 End: 06-14-2023 Social connection and isolation panel [facility] Do you belong to any clubs or organizations such as evangelical groups, unions, fraternal or athletic groups, or school groups? Yes [facility] Are you now , , , , never or living with a partner? [facility] How often to you hav e a drink containing alcohol? 2-[address] [facility] How many standard dr inks containing alcohol do you have on a typical day? [address] [facility] How often do you hav e 6 or more drinks on 1 occasion? Never [facility] How hard is it for y ou to pay for the very basics like food, housing, medical care, and heating Not hard at all [facility] Do you feel stress - tense, restless, nervous, or anxious, or unable to sleep at night because your mind is troubled all the time - these days [OSQ] Only a little [facility] Start: 12-13-[address] [facility] Start: 1955 Sex Assigned At Female [facility] Start: 01-29-2022 Gender identity Identifies as female gender (finding) [facility] Start: 01-29-2022 Sexual orientation Heterosexual (finding) [facility] Note 07-10-2023 Telephone Encounter - Corina Medrano LPN - 07/10/2023 6:23 AM EDT Note Date & Type Note Facility 07-10-2023 Miscellaneous Notes Formattin g of this note might be different from the original. [facility] requesting refill of Premarin documented in this encounter [facility] Telephone encounter Note 07-10-2023 Telephone Encounter - Corina Medrano LPN - 07/10/2023 6:23 AM EDT Note Date & Type Note Facility 07-10-2023 Telephone encount er Note [facility] requesting refill of Premarin [facility] History of Present illness Narrative 06-14-2023 Papa Whitehead MD - 06/14/2023 9:15 AM EST Note Date & Type Note Facility 06-14-2023 History of Present illness Narrative Images from the original note were not included. [address] [facility] [id number] Subjective: Sandy Maldonado is a 67 y.o. female who presents for a Medicare Annual Wellness exam. The following portions of the patient's history were reviewed and updated as appropriate: Health Risk Assessment, allergies, past medical history, past surgical history, social history, family history, and immunization history Accompanied by: self History Provided By: self Language and Other Communication Barriers: Primary Language Spoken: Bengali Highest Level of Education Completed: college graduate [...] Do you have a durable power of regulatory attorney?: (!) No Hearing Assessment Do you [...] Problem List Diagnosis Date Noted Obesity, morbid ([facility]) 05/24/2022 BMI 32.0-32.9,adult 11/27/2017 Essential hypertension, benign [...] Recheck in 2m [facility]23 Patient Instructions Note Date [...] services: Not applicable [facility] 05-10-2023 Telephone Encounter - Corina Medrano LPN - 05/10/2023 1:33 PM EST Note Date & Type Note Facility 05-10-2023 Miscellaneous Notes Formattin g of this note might be different from the original. Patient via MyChart requesting refill of Adderall to [facility] documented [facility] this [facility] Telephone encounter Note 05-10-2023 Telephone Encounter - Corina Medrano LPN - 05/10/2023 1:33 PM EST Note Date & Type Note Facility 05-10-2023 Telephone encount er Note Patient via [employer]hart requesting refill of Adderall to [facility] Evaluation note Note Date & Type Note Facility Evaluation note Diagnosis Attention deficit hyperactivity disorder (ADHD), predominantly inattentive type documented in this encounter [facility] Evaluation note Note Date & Type Note Facility Evaluation note Diagnosis Routine general medical examination at a health care facility- Primary Attention deficit hyperactivity disorder (ADHD), predominantly inattentive type Essential hypertension, benign BMI 34.0-34.9,adult documented in this encounter [facility] Instructions Note Date & Type [...] DATE CREATED AUTHOR AUTHOR'S ORGANIZ ATION 09/25/2023 [facility] Reason for Visit (unrecogniz ed section and content) Reason Onset Date Comments Med Refill 05/10/2023 Reason Comments Annual Exam Medicare Wellness Reason Comments Med Refill Care Teams (unrecognized sec tion and content) Inspector Cold Working Relationship Specialty Start Date End Date Papa Whitehead MD [address] [place] [address] PCP - General Family Medicine 07/24/16 Inspector Cold Working Relationship Specialty Start Date End Date Papa Whitehead MD [address] [place] [address] PCP - General Family Medicine 07/24/16 Inspector Cold Working Relationship Specialty Start Date End Date Papa Whitehead MD [address] [place] [address] PCP - General Family Medicine 07/24/16 FOR [...] BE BASED ON THE PRIMARY CLINICAL RECORDS. [facility]. provides no warranty or guarantee of the accuracy or completeness of information in this document.
== END 2024-01-03 11:56 | disposition home or self-care (01) ==
PROVIDERS: PCP Radiology Diagnostic Radiology; Visit Provider Radiology Diagnostic Radiology
DX: I83.813 Varicose veins of bilateral lower extremities with pain (principal)
CPT/HCPCS: 36466

== ENCOUNTER 2024-01-10 10:22 | Outpatient (OUT) | payer MEDICARE, SELFPAY ==
--- NOTE | 2024-01-10 07:57 | V.VEINS.HP ---
Vital Signs 01/10/24 10:57 Height 5 ft 4 in Weight 86.1 kg BMI 32.6 Varicose Veins Patient in today for follow up ultrasound of left lower extremity following treatment of Varithena/microfoam completed on 01/03/24. Goldy Quintana MD personally performed the services described in this documentation, as scribed by Ashlee Marie RDMS in my presence and it is both accurate and complete. I, Ashlee Marie RDMS, am scribing for, and in the presence of, Dr. Goldy Lazo and in the presence of the patient. thigh: bilateral (symptoms symmetrical bilaterally), knee: bilateral, calf: bilateral, ankle: bilateral and bates: bilateral aching, cramping and dull 6 4years Worsened in recent months: Yes standing, sitting and walking analgesics (Tylenol), elevating extremities, compression stockings and exercise Reports muscle spasms of leg, fatigue, heaviness, limb pain, edema and leg edema History of lower extremity trauma: No Superficial thrombophlebitis: No Family history of varicose veins: yes (father) Has patient had previous lower extremity venous surgery: No Patient has previously received the following treatment(s) for lower extremity varicose veins: Reports none Does patient have a history of : yes Does patient intend to have future pregnancies: no Has patient had lower extremity venous scan with relux testing: No Support hose used: Yes Problems walking or doing physical activity: Yes How does it affect you: exericse limit decreased due to pain Do you walk much: Yes Do you stand much: Yes Review of Systems ROS Narrative Goldy Quintana MD personally performed the services described in this documentation, as scribed by Ashlee Marie RDMS in my presence and it is both accurate and complete. Ashlee Quintana RDMS, am scribing for, and in the presence of, Dr. Goldy Lazo and in the presence of the patient. Status of ROS 10 or more systems reviewed and unremarkable except as noted in history and below Cardiovascular Reports: edema Integumentary/Breast Reports: itching, redness, skin pain and changes in skin color Neurological Reports: weakness in extremities [facility] Medical History (Updated 01/10/24 @ 07:58 by Ashlee Marie) Phlebitis and thrombophlebitis of superficial vessels of left lower extremity ?I80.02 - Phlebitis and thrombophlebitis of superficial vessels of left lower extremity (ICD-10) Varicose veins of bilateral lower extremities with pain ?I83.813 - Varicose veins of bilateral lower extremities with pain (ICD-10) Hypertension ?I10 - Essential (primary) hypertension (ICD-10) Surgical History (Updated 01/03/24 @ 11:52 by López Colvin) S/P sclerotherapy of varicose veins ?Z98.890 - Other specified postprocedural states (ICD-10) ?Z86.79 - Personal history of other diseases of the circulatory system (ICD-10) S/P sclerotherapy of varicose veins ?Z98.890 - Other specified postprocedural states (ICD-10) ?Z86.79 - Personal history of other diseases of the circulatory system (ICD-10) H/O tubal ligation ?Z98.51 - Tubal ligation status (ICD-10) History of cholecystectomy ?Z90.49 - Acquired absence of other specified parts of digestive tract (ICD-10) H/O: hysterectomy ?Z90.710 - Acquired absence of both cervix and uterus (ICD-10) Family History (Updated 01/03/24 @ 07:52 by López Colvin) Other Family history of hypertension Family history of stroke Heart disease Pain due to varicose veins of both lower extremities Social History (Updated 01/03/24 @ 07:53 by López Colvin) Within the past year, how often did you have a drink containing alcohol: monthly or less Smoking status: Never smoker Non-prescribed substance use: denies use Meds Home Medications and Allergies Home Medications ?Medication ?Instructions ?Recorded ?Confirmed ?Type conjugated estrogens 0.3 mg tablet 0.3 mg PO DAILY 01/03/24 01/03/24 History (Premarin) dextroamphetamine-amphetamine 5 mg 1.25 mg PO DAILY 01/03/24 01/03/24 History tablet (Adderall) triamterene 37.5 1 cap PO DAILY 01/03/24 01/03/24 History mg-hydrochlorothiazide 25 mg capsule aspirin 325 mg capsule 325 mg PO DAILY 01/10/24 01/10/24 History Allergies Allergy/AdvReac Type Severity Reaction Status Date / Time No Known Drug Allergies Allergy Verified 01/03/24 07:54 Exam Narrative Exam Narrative: Patient has no complaints today. Goldy Quintana MD personally performed the services described in this documentation, as scribed by Ashlee Marie RDMS in my presence and it is both accurate and complete. Ashlee Quintana RDMS am scribing for, and in the presence of, Dr. Goldy Lazo and in the presence of the patient. Constitutional Documenting provider has reviewed patient's vital signs: yes Common normals: oriented x3 Cardio Peripheral pulses: posterior tibial pulses present and dorsalis pedis pulses present Extremity Common normals: normal capillary refill General: calf tenderness and edema Right lower extremity: lower leg Right lower leg: inspection and palpation Left lower extremity: lower leg Left lower leg: inspection and palpation Neuro Common normals: oriented x3 Results Imaging Venous US: Radiologist's impression: Chemically induced thrombus in multiple varicose veins left lower leg. Thrombus extends into one of the PTVs from prox to mid calf. Goldy Quintana MD personally performed the services described in this documentation, as scribed by Ashlee Marie RDMS in my presence and it is both accurate and complete. Ashlee Quintana RDMS am scribing for, and in the presence of, Dr. Goldy Lazo and in the presence of the patient. Assessment and Plan Assessment and Plan (1) Phlebitis and thrombophlebitis of superficial vessels of left lower extremity: Plan Plan is for patient to start on Aspirin therapy 325 mg daily for 30 days and to return for sclerotherapy on 01/17/24. Goldy Quintana MD personally performed the services described in this documentation, as scribed by Ashlee Marie RDMS in my presence and it is both accurate and complete. Ashlee Quintana RDMS am scribing for, and in the presence of, Dr. Goldy Lazo and in the presence of the patient.
--- NOTE | 2024-01-10 08:23 | P.DS_ITS ---
Discharge Plan Discharge Disposition: Home, Self-Care Outpatient Diagnostics: VC INJ Sclerosing SOLMULT Vein (Routine) Timeframe: 2 Weeks Facility: [facility] - Location: [facility] Center Ordered By: Goldy Lazo Follow Up Appointments: 01/17/24 Plan of Treatment: Sclerotherapy of bilateral legs Print Language: Icelandic Discharge Date/Time: 01/10/24 11:09
--- NOTE | 2024-01-10 10:27 | VEIN_ITS ---
Patient Name: SANDY BOBO MR#: [id number] : 1955 Exam Date: 01/10/2024 Ordering Doctor: DR ASHLEY METZGER M.D. RADIOLOGY REPORT PROCEDURE: VC EXT VENOUS LT LIMITED COMPARISON: None. INDICATIONS: I80.02 - Phlebitis and thrombophlebitis of superficial veins left leg TECHNIQUE: Lower extremity diop scale and Duplex Doppler evaluation of the deep venous system from the inguinal ligament through the calf veins. FINDINGS: REGION: Left lower extremity. THROMBI: Positive for DVT. Chemically induced thrombus in varicose vein from mid thigh to distal lower leg. Thrombus extends into one of the posterior tibial veins from prox to mid calf approximately 5 cm from popliteal vein. COMPRESSIBILITY: Non-compressible segments corresponding to thrombus FLOW: Areas of no flow corresponding to thrombus OTHER: No significant varicose veins remain. CONCLUSION: Small segment of deep vein thrombus in a posterior tibial vein measuring approximately 6 cm, 5 cm distal to the popliteal junction Dictated by: Goldy Lazo MD on 01/10/2024 at 10:53 Approved by: Goldy Lazo MD on 01/10/2024 at 10:55
--- NOTE | 2024-01-10 10:27 | VEIN_ITS ---
Patient Name: SANDY BOBO MR#: [id number] : 1955 Exam Date: 01/10/2024 Ordering Doctor: DR ASHLEY METZGER M.D. RADIOLOGY REPORT PROCEDURE: FACILITY EST [facility] - OFFICE VISIT FOLLOW UP COMPARISON: [facility] EST LMT[facility], 10/03/2023. FACILITY EST [facility]MT[facility], 09/13/2023. PROGRESS NOTES: The patient reports no significant problems following micro foam chemical ablation. The patient has worn her compression stocking and exercise. The patient did not require oral analgesics. Physical exam demonstrates scattered reticular and spider veins. No varicose veins are observed. No erythema or warmth to suggest cellulitis or thrombophlebitis. No active ulceration. Thrombosed varicose veins can be palpated Review of the ultrasound performed the same day demonstrates occlusive thrombus extending throughout the treated left leg varicose veins. There is a 6 cm segment of deep vein thrombus in a single posterior tibial vein, 5 cm from the popliteal junction. This was discussed the patient and I recommended 325 milligram aspirin once per day for the next 4 weeks The patient expressed a desire to proceed with treatment of reticular and spider veins with injection sclerotherapy. VEIN/[facility] EST LMTD IMPRESSION: 1. Successful ablation of treated left leg varicose veins with a 6 cm segment of deep vein thrombus in a left posterior tibial vein 2. Persistent spider in reticular. PLAN: 325 milligram aspirin once per day for the next 4 weeks Injection sclerotherapy of reticular and spider veins Nurse notes, history and physical were reviewed and confirmed, see attached forms. The nurse was present throughout the physical exam and consultation Dictated by: Goldy Lazo MD on 01/10/2024 at 11:11 Approved by: Goldy Lazo MD on 01/10/2024 at 11:13
--- OUTSIDE RECORDS SUMMARY | 2024-01-10 10:33 | XMS_ITS | CCD ---
Author Organization [facility] Care Team Providers Care Optical Instruments Supervisor Name Role Phone ELSA, DR PAPA [...] Unavailable Timoteorance Papa ENGLAND Primary Care Provider [phone] PAPA WHITEHEAD Attending Unavailable DEFRANCE, PAPA Avila [...] Take by mouth. 0 Active estrogens, conjugated (fci) 0.9 mg oral tablet (4 sources) Estrogen [...] 09-24-2023 Albumin [Mass/Vol] 4.0 g/dL Normal 3.2-5.3 [facility] Comment on above: Performed By: #### L IVR #### [facility] ([id number]) [address], [address] [place] [address] ALP [Catalytic activity/Vol] 104 U/L Normal 39-130 [facility] Comment on above: Performed By: #### L IVR #### [facility] ([id number]) [address], [address] [place] [address] ALT [Catalytic activity/Vol] 17 U/L Normal 0-31 [facility] Comment on above: Performed By: #### L IVR #### [facility] ([id number]) [address], [facility] [address] [place] [address] AST [Catalytic activity/Vol] 18 U/L Normal 0-41 [facility] Comment on above: Performed By: #### L IVR #### [facility] ([id number]) [address], [address] [place] [address] Bilirubin [Mass/Vol] 0.7 mg/dL Normal 0.3-1.2 [facility] Comment on above: Performed By: #### L IVR #### [facility] ([id number]) [address], [address] [place] [address] Bilirubin.direct [Mass/Vol] 0.1 mg/dL Normal 0.0-0.4 [facility] Comment on above: Performed By: #### L IVR #### [facility] ([id number]) [address], [address] [place] [address] Protein [Mass/Vol] 6.9 g/dL Normal 6.0-8.0 [facility] Comment on above: Performed By: #### L IVR #### [facility] ([id number]) [address], [address] [place] [address] CBC AND AUTO DIFFon 06-18-19 ABSOLUTE BASOPHIL 0.0 X10E9/L Normal 0.0-0.2 [facility] Comment on above: Performed By: #### Roberth LUTZ, 41933-9, THYR, CBCA #### [facility] ([id number]) [address] [address] [place] [address] ABSOLUTE NEUTROPHIL 4.3 X10E9/L Normal 1.5-6.6 [facility] Comment on above: Performed By: #### Roberth LUTZ, 85155-2, THYR, CBCA #### [facility] ([id number]) [address] [address] [place] [address] Basophils/100 WBC (Bld) 0.4 % Normal [facility] Comment on above: Performed By: #### Roberth LUTZ, 11080-0, THYR, CBCA #### [facility] ([id number]) [address] [address] [place] [address] Eosinophils (Bld) [#/Vol] 0.1 10*3/uL Normal 0.0-0.4 [facility] Comment on above: Performed By: #### C BOLIVAR, 64855-9, THYR, CBCA #### [facility] ([id number]) [address], [address] [place] [address] Eosinophils/100 WBC (Bld) 1.3 % Normal [facility] Comment on above: Performed By: #### C BOLIVAR 26940-6, THYR, CBCA #### [facility] ([id number]) [address], [facility] [address] [place] [address] Erythrocyte distribution width (RBC) [Ratio] 13.4 % Normal 11.5-15.0 [facility] Comment on above: Performed By: #### C BOLIVAR, 66799-4, THYR, CBCA #### [facility] ([id number]) [address], [facility] [address] [place] [address] Hematocrit (Bld) [Volume fraction] 41.7 % Normal 35-47 [facility] Comment on above: Performed By: #### C BOLIVAR 53590-2, THYR, CBCA #### [facility] ([id number]) [address] [place] [address] Hemoglobin (Bld) [Mass/Vol] 14.1 g/dL Normal 11.7-15.5 [facility] Comment on above: Performed By: #### C BOLIVAR, 70686-5, THYR, CBCA #### [facility] ([id number]) [address] [place] [address] Lymphocytes (Bld) [#/Vol] 3.4 10*3/uL Normal 1.0-3.5 [facility] Comment on above: Performed By: #### C BOLIVAR, 62743-2, THYR, CBCA #### [facility] ([id number]) [address] [place] [address] Lymphocytes/100 WBC (Bld) 41.3 % Normal [facility] Comment on above: Performed By: #### C BOLIVAR, 05489-1, THYR, CBCA #### [facility] ([id number]) [address], [address] [place] [address] MCH (RBC) [Entitic mass] 28.5 pg Normal 27-34 [facility] Comment on above: Performed By: #### C BOLIVAR 91860-3, THYR, CBCA #### [facility] ([id number]) [address], [facility] [address] [place] [address] MCHC (RBC) [Mass/Vol] 33.8 g/dL Normal 32-36 [facility] Comment on above: Performed By: #### C BOLIVAR 70238-5, THYR, CBCA #### [facility] ([id number]) [address], [address] [place] [address] MCV (RBC) [Entitic vol] 84 fL Normal 80-100 [facility] Comment on above: Performed By: #### Roberth LUTZ, 88314-8, THYR, CBCA #### [facility] ([id number]) [address], [address] [place] [address] Monocytes (Bld) [#/Vol] 0.4 10*3/uL Normal 0-0.9 [facility] Comment on above: Performed By: #### Roberth LUTZ, 55577-9, THYR, CBCA #### [facility] ([id number]) [address], [address] [place] [address] Monocytes/100 WBC (Bld) 4.4 % Normal [facility] Comment on above: Performed By: #### Roberth LUTZ, 17482-2, THYR, CBCA #### [facility] ([id number]) [address], [address] [place] [address] Neutrophils/100 WBC (Bld) 52.6 % Normal [facility] Comment on above: Performed By: #### C BOLIVAR, 97185-5, THYR, CBCA #### [facility] ([id number]) [address] [place] [address] Platelet mean volume (Bld) [Entitic vol] 7.8 fL Normal 7-12 [facility] Comment on above: Performed By: #### C BOLIVAR, 78591-1, THYR, CBCA #### [facility] ([id number]) [address] [place] [address] Platelets (Bld) [#/Vol] 292 10*3/uL Normal 150-450 [facility] Comment on above: Performed By: #### C BOLIVAR, 25715-7, THYR, CBCA #### [facility] ([id number]) [address] [place] [address] RBC COUNT 4.94 X10E12/L Normal 3.80-5.20 [facility] Comment on above: Performed By: #### C BOLIVAR, 70278-9, THYR, CBCA #### [facility] ([id number]) [address] [place] [address] WBC (Bld) [#/Vol] 8.2 10*3/uL Normal 4.0-11.0 [facility] Comment on above: Performed By: #### C BOLIVAR, 08546-6, THYR, CBCA #### [facility] ([id number]) [address], [address] [place] [address] COMPREHENSIVE METABOLIC PANE Willie 06-18-2023 Albumin [Mass/Vol] 4.1 g/dL Normal 3.2-5.3 [facility] Comment on above: Performed By: #### C BOLIVAR, 23017-3, THYR, CBCA #### [facility] ([id number]) [address] [place] [address] ALP [Catalytic activity/Vol] 110 U/L Normal 39-130 [facility] Comment on above: Performed By: #### C BOLIVAR, 37500-5, THYR, CBCA #### [facility] ([id number]) [address], [address] [place] [address] ALT [Catalytic activity/Vol] 15 U/L Normal 0-31 [facility] Comment on above: Performed By: #### C BOLIVAR, 58760-7, THYR, CBCA #### [facility] ([id number]) [address], [address] [place] [address] Anion gap [Moles/Vol] 9 mmol/L Normal 5-15 [facility] Comment on above: Performed By: #### C BOLIVAR, 02719-6, THYR, CBCA #### [facility] ([id number]) [address], [address] [place] [address] AST [Catalytic activity/Vol] 15 U/L Normal 0-41 [facility] Comment on above: Performed By: #### C BOLIVAR, 67924-6, THYR, CBCA #### [facility] ([id number]) [address], [address] [place] [address] Bilirubin [Mass/Vol] 0.6 mg/dL Normal 0.3-1.2 [facility] Comment on above: Performed By: #### C BOLIVAR, 45005-5, THYR, CBCA #### [facility] ([id number]) [address], [address] [place] [address] Calcium [Mass/Vol] 8.8 mg/dL Normal 8.5-10.5 [facility] Comment on above: Performed By: #### C BOLIVAR, 88054-6, THYR, CBCA #### [facility] ([id number]) [address], [address] [place] [address] Chloride [Moles/Vol] 104 mmol/L Normal 98-109 [facility] Comment on above: Performed By: #### C BOLIVAR 50642-5, THYR, CBCA #### [facility] ([id number]) [address], [facility] [address] [place] [address] CO2 [Moles/Vol] 28 mmol/L Normal 22-32 [facility] Comment on above: Performed By: #### C BOLIVAR 71892-4, THYR, CBCA #### [facility] ([id number]) [address] [place] [address] Creatinine [Mass/Vol] 0.66 mg/dL Normal 0.40-1.00 [facility] Comment on above: Result Comment: METH OD TRACEABLE TO IDMS STANDARD Performed By: #### C BOLIVAR 42669-4, THYR, CBCA #### [facility] ([id number]) [address], [address] [place] [address] eGFR (CKD-EPI) NON-RACE DEPENDENT >90 Normal >59 [facility] Comment on above: Result Comment: Reported eGFR is based on the CKD-EPI 2020 equation that does not use a race coefficient. Performed By: #### C BOLIVAR 08876-1, THYR, CBCA #### [facility] ([id number]) [address], [facility] [address] [place] [address] Glucose [Mass/Vol] 100 mg/dL High 65-99 [facility] Comment on above: Performed By: #### C BOLIVAR 77541-0, THYR, CBCA #### [facility] ([id number]) [address] [place] [address] Potassium [Moles/Vol] 3.8 mmol/L Normal 3.5-5.0 [facility] Comment on above: Performed By: #### C BOLIVAR 99339-8, THYR, CBCA #### [facility] ([id number]) [address], [address] [place] [address] Protein [Mass/Vol] 7.0 g/dL Normal 6.0-8.0 [facility] Comment on above: Performed By: #### Roberth LUTZ, 27142-9, THYR, CBCA #### [facility] ([id number]) [address], [address] [place] [address] Sodium [Moles/Vol] 141 mmol/L Normal 134-146 [facility] Comment on above: Performed By: #### Roberth LUTZ, 37636-0, THYR, CBCA #### [facility] ([id number]) [address], [address] [place] [address] Urea nitrogen [Mass/Vol] 15 mg/dL Normal 5-27 [facility] Comment on above: Performed By: #### Roberth LUTZ, 16395-4, THYR, CBCA #### [facility] ([id number]) [address], [address] [place] [address] Lipid 1996 panelon 4 Cholesterol [Mass/Vol] 151 mg/dL Normal 150-200 [facility] Comment on above: Performed By: #### Roberth LUTZ, 56794-9, THYR, CBCA #### [facility] ([id number]) [address], [address] [place] [address] Cholesterol in HDL [Mass/Vol] 68 mg/dL Normal >39 [facility] Comment on above: Result Comment: HDL <40 mg/dL - High Risk HDL > or = 40mg/dL- Desirable HDL >60 mg/dL - Negative Risk Performed By: #### C BOLIVAR, 92446-5, THYR, CBCA #### [facility] ([id number]) [address] [place] [address] Cholesterol in LDL [Mass/Vol] 52 mg/dL Normal <130 [facility] Comment on above: Result Comment: LDL <100 mg/dL - Desirable LDL >160 mg/dL - High Risk Performed By: #### C BOLIVAR, 00835-1, THYR, CBCA #### [facility] ([id number]) [address] [place] [address] Cholesterol in VLDL [Mass/Vol] 31 mg/dL High 0-30 [facility] Comment on above: Performed By: #### C BOLIVAR, 00947-3, THYR, CBCA #### [facility] ([id number]) [address] [place] [address] CHOLESTEROL:HDL 2.2 Normal 1.0-5.0 [facility] Comment on above: Performed By: #### C BOLIVAR, 48445-6, THYR, CBCA #### [facility] ([id number]) [address] [place] [address] Triglyceride [Mass/Vol] 157 mg/dL High 27-150 [facility] Comment on above: Performed By: #### C BOLIVAR, 71742-8, THYR, CBCA #### [facility] ([id number]) [address] [place] [address] THYROID PROFILEon 06-18-2023 Free T4 [Mass/Vol] 0.85 ng/dL Normal 0.61-1.60 [facility] Comment on above: Performed By: #### C BOLIVAR, 59027-3, THYR, CBCA #### [facility] ([id number]) [address] [place] [address] TSH 2.32 uIU/mL Normal 0.49-4.67 [facility] Comment on above: Performed By: #### C , 76547-2, THYR, CBCA #### [facility] ([id number]) [address] [place] [address] VC CONSULT FOLLOWUPon 2022 VC CONSULT FOLLOWUP Patient: SARA MALDONADO I Exam Date: 09/06/2022 : 1955 Gender:F Ordering : DR PAPA HUNTER M.D. Admission #: [id number] Family : Order #: [id number] CLICK HERE TO VIEW EXAM RADIOLOGY REPORT [...] M.D. on 09/06/2022 at 14:53 Normal [facility] VC EXT VENOUS LT LIMITEDon 0 09-06-2022 VC EXT VENOUS LT LIMITED Patient: SANDY MALDONADO Exam Date: 09/06/2022 : 1955 Gender:F Ordering : DR PAPA HUNTER M.D. Admission #: [id number] Family : Order #: [id number] CLICK HERE TO VIEW EXAM RADIOLOGY REPORT [...] M.D. on 09/06/2022 at 15:02 Normal [facility] VC ENDOVENOUS ABL 1ST V LTon 08-31-2022 VC ENDOVENOUS ABL 1ST V LT Patient: SANDY MALDONADO Exam Date: 08/31/2022 : 1955 Gender:F Ordering : DR PAPA HUNTER M.D. Admission #: [id number] Family : Order #: [id number] CLICK HERE TO VIEW EXAM RADIOLOGY REPORT PROCEDURE: VEIN CENTER ENDOVENOUS ABLATION FIRST VEIN LEFT COMPARISON: VC VENOUS REFLUX NERY LMT, 07/06/2022. INDICATIONS: Pain co-occurrent and due to varicose veins of bilateral legs I83.813 OPERATIVE REPORT: The risks and benefits of the procedure had been previously discussed, and were rediscussed at length. Informed written consent was obtained by ma and López Colvin assisted. Time out procedure [...] Waldemar Herrera M.D. on 08/31/2022 at 14:41 [facility] VC COMP CONSULTATIONon 07-06 VC COMP CONSULTATION Patient: DO CHRISTIAN MALDONADO Exam Date: 07/06/2022 : 1955 Gender:F Ordering : DR PAPA HUNTER M.D. Admission #: [id number] Family : Order #: [id number] CLICK HERE TO VIEW EXAM RADIOLOGY REPORT [...] several years. 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 Elevated legs and increased physical activity for symptomatic relief Nurse notes, history and physical were reviewed and confirmed, see attached forms. The nurse was present throughout the physical exam and consultation Dictated by: Papa Hunter MD on 07/06/2022 at 12:57 Approved by: Papa Hunter MD on 07/06/2022 at 13:14 Normal [facility] VC VENOUS REFLUX NERY LMTon 0 07-06-2022 VC VENOUS REFLUX NERY LMT Patient: SANDY MALDONADO Exam Date: 07/06/2022 : 1955 Gender:F Ordering : DR PAPA HUNTER M.D. Admission #: [id number] Family : Order #: [id number] CLICK HERE TO VIEW EXAM RADIOLOGY REPORT [...] thrombus. Compressibility: Normal. Flow: Deep venous reflux. Reliability Technician: Mid medial lower leg 4.7 mm with [...] MD on 07/06/2022 at 12:40 Normal [facility] Vital Signs Date Time Vital Sign Value Performing Clinician Facility 06-14-2023 09:110500 Body height 161.3 cm Papa Whitehead MD Work Phone: [facility] 06-14-2023 09:11-0500 Body mass index (BMI) [...] Provider Facility Start: 09-24-2023 End: 09-25-2023 ambulatory [facility] Start: 08-13-2023 End: 08-13-2023 ambulatory [facility] Start: 07-10-2023 Refill Sandy medina 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-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 Work Phone: [facility] Start: 06-18-2023 End: 06-19-2023 ambulatory [facility] Start: 06-14-2023 End: 06-14-2023 ambulatory [facility] Start: 06-14-2023 Encounter for genera l adult medical examination without abnormal findings [facility] Start: 06-14-2023 End: 06-14-2023 Patient encounter procedure Papa Whitehead MD Work Phone: [facility] Comment on above: Routine general medi rajat examination at a health care facility (Primary Dx); Attention deficit hyperactivity disorder (ADHD), predominantly inattentive type; Essential hypertension, benign; BMI 34.0-34.9,adult Start: 06-14-2023 End: 06-14-2023 Patient encounter status [facility] Whitehead [facility] Work Phone: Start: 05-10-2023 Refill Papa hackett MD Work Phone: [facility] Comment on above: Attention [...] Screening Adult BMI Screen ing [facility] Start: 06-14-2024 Depression Screening Depression Scre ening [facility] Start: 06-14-2024 Fall Risk Screening Fall Risk Screen ing [facility] Start: 06-14-2024 Medicare Annual Well ness Visit Medicare Annual Wellness Visit [facility] Start: 06-14-2024 Tobacco Screening Tobacco Screening [facility] Start: 03-11-2024 Adult BMI Screening Adult BMI Screen ing [facility] Start: 12-08-2023 Depression Screening Depression Scre ening [facility] Start: 12-08-2023 Fall Risk Screening Fall Risk Screen ing [facility] Start: 12-08-2023 Tobacco Screening Tobacco Screening [facility] Start: 08-13-2023 End: 08-13-2023 Patient encounter procedure 08/13/2023 9:15 AM EDT Office Visit [facility] [address] [place] [id number] Papa Whitehead MD [address] [place] [address] [facility] Start: 06-14-2023 End: 06-13-2024 CBC W Auto Differential panel - Blood CBC auto differential Lab Routine Essential hypertension, benign BMI 34.0-34.9,adult Expected: 06/14/2023, Expires: 06/13/2024 [facility] Work Phone: Comment on above: Expected: 06/14/2023 [...] procedure 06/14/2023 9:15 AM EST Office Visit [facility] [address] [place] [address] Papa Whitehead MD [address] [place] [address] [facility] Start: 12-28-2022 COVID-19 [...] Immunization Date Immunization Notes Care Provider Ashley [facility] 02-05-2023 Influenza, injectabl e, Madin Hien [...] influenza virus vacc ine, unspecified formulation Papa Whitheead MD Work Phone: [facility] 02-24-2014 influenza, injectabl e, quadrivalent, contains preservative Papa Whitehead MD Work Phone: [facility] 03-18-2012 influenza virus vacc ine, unspecified formulation Papa Whitehead MD Work Phone: [facility] 03-18-2012 influenza, seasonal, injectable aPpa Whitehead MD Work Phone: [facility] 03-18-2012 tetanus toxoid, redu trna diphtheria toxoid, and acellular pertussis vaccine, adsorbed [...] Date Payer Category Payer Private Health Insurance [facility] SU[facility] [id number] 2023-Present [phone] [address] [place] [address] [id number] 2023 Unknown [id number] 2021 Medicare MEDICARE MEDICAR E PART A & B [id number] 2021-Present [phone] [address] [place] [address] [id number] 1959 Medicare [id number] 1959 Unknown [id number] 1955 Unknown [id number] .593 1955 Unknown [id number] [id number] .593 1955 Unknown [id number] [id number] .593 1955 Unknown [id number] [id number] .593 1955 Unknown [id number] [id number] .593 1955 Unknown [id number] [id number] .1286 1955 Unknown [id number] 2.16.840.1.369910.3.579.2 .1286 1955 Unknown [id number] 2.16.840.1.312626.3.579.2 .1286 1955 Unknown [id number] [id number] .1286 Social History Date Type Detail Facility [...] to any clubs or organizations such as restorationist groups, unions, fraternal or athletic groups, or [...] note were not included. [address] [facility] [id number] Subjective: Sandy Maldonado is a 67 y.o. female who presents for a Medicare Annual Wellness exam. The following portions of the patient's history were reviewed and updated as appropriate: Health Risk Assessment, allergies, past medical history, past surgical history, social history, family history, and immunization history Accompanied by: self History Provided By: self Language and Other Communication Barriers: Primary Language Spoken: Setswana Highest Level of Education Completed: college graduate [...] Do you have a durable power of patent prosecution attorney?: (!) No Hearing Assessment Do you [...] Problem List Diagnosis Date Noted Obesity, morbid ([facility]) 05/24/2022 BMI 32.0-32.9,adult 11/27/2017 Essential hypertension, benign [...] Recheck in 2m [facility]-14-2023 Patient Instructions Note Date [...] services: Not applicable [facility] 05-10-2023 Telephone Encounter - Corina Medrano LPN - 05/10/2023 1:33 PM EST Note Date & Type Note Facility 05-10-2023 Miscellaneous Notes Formattin g of this note might be different from the original. Patient via MyChart requesting refill of Adderall to [facility] Telephone encounter Note 05-10-2023 Telephone Encounter - Corina Medrano LPN - 05/10/2023 1:33 PM EST Note Date & Type Note Facility 05-10-2023 Telephone encount er Note Patient via [employer] requesting refill of Adderall to [facility] Evaluation note Note Date & Type Note Facility Evaluation note Diagnosis Attention deficit hyperactivity disorder (ADHD), predominantly inattentive type [facility] Note Date & [...] and content) DATE CREATED AUTHOR 09/13/2022 [facility] DATE CREATED AUTHOR AUTHOR'S ORGANIZ ATION 08/14/2023 [facility] DATE CREATED AUTHOR AUTHOR'S ORGANIZ ATION 09/25/2023 [facility] Reason for Visit (unrecogniz ed section and content) Reason Onset Date Comments Med Refill 05/10/2023 Reason Comments Annual Exam Medicare Wellness Reason Comments Med Refill Care Teams (unrecognized sec tion and content) [employer] Supervisor Relationship Specialty Start Date End Date Papa Whitehead MD [address] [place] [address] PCP - General Family Medicine 07/24/16 [employer] Supervisor Relationship Specialty Start Date End Date Papa Whitehead MD [address] [place] [address] PCP - General Family Medicine 07/24/16 [employer] Supervisor Relationship Specialty Start Date End Date Papa Whitehead MD [address] [place] [address] PCP - General Family Medicine 07/24/16 FOR [...] BE BASED ON THE PRIMARY CLINICAL RECORDS. [facility]. provides no warranty or guarantee of the accuracy or completeness of information in this document.
[2024-01-10 10:57] VITALS: BMI 32.6
== END 2024-01-10 11:09 | disposition home or self-care (01) ==
LOC: VC 10:27
PROVIDERS: PCP Radiology Diagnostic Radiology; Visit Provider Radiology Diagnostic Radiology
DX: I80.02 Phlebitis and thrombophlebitis of superficial vessels of left lower extremity (principal)
CPT/HCPCS: 93971; G0463

== ENCOUNTER 2024-01-17 09:55 | Outpatient (OUT) | payer MEDICARE, SELFPAY ==
--- NOTE | 2024-01-16 15:21 | VEINCLINIC_ITS ---
Vital Signs 01/17/24 10:15 01/17/24 11:03 Height 5 ft 4 in Weight 86.183 kg BP 118/72 BP Location Right Brachial BP Position Sitting BP Cuff Size Adult BP Source Manual Cuff Respiration 16 Pulse 88 Pulse Source Monitor Pulse Oximetry (%) 97 Oxygen Delivery Method Room Air Varicose Veins Patient in this day for sclerotherapy Goldy Quintana MD personally performed the services described in this documentation, as scribed by López Colvin RN in my presence and it is both accurate and complete. ILópez RN, am scribing for, and in the presence of, Dr. Goldy Lazo and in the presence of the patient. thigh: bilateral (symptoms symmetrical bilaterally), knee: bilateral, calf: bilateral, ankle: bilateral and bates: bilateral aching, cramping and dull 6 4years Worsened in recent months: Yes standing, sitting and walking analgesics (Tylenol), elevating extremities, compression stockings and exercise Reports muscle spasms of leg, fatigue, heaviness, limb pain, edema and leg edema History of lower extremity trauma: No Superficial thrombophlebitis: No Family history of varicose veins: yes (father) Has patient had previous lower extremity venous surgery: No Patient has previously received the following treatment(s) for lower extremity varicose veins: Reports none Does patient have a history of : yes Does patient intend to have future pregnancies: no Has patient had lower extremity venous scan with relux testing: No Support hose used: Yes Problems walking or doing physical activity: Yes How does it affect you: exericse limit decreased due to pain Do you walk much: Yes Do you stand much: Yes Review of Systems ROS Narrative Goldy Quintana MD personally performed the services described in this documentation, as scribed by López Colvin RN in my presence and it is both accurate and complete. López Quintana RN, am scribing for, and in the presence of, Dr. Goldy Lazo and in the presence of the patient. Status of ROS 10 or more systems reviewed and unremark able except as noted in history and below Cardiovascular Reports: edema Integumentary/Breast Reports: itching, redness, skin pain and changes in skin color Neurological Reports: weakness in extremities [facility] Medical History (Updated 01/10/24 @ 07:58 by Ashlee Marie) Phlebitis and thrombophlebitis of superficial vessels of left lower extremity ?I80.02 - Phlebitis and thrombophlebitis of superficial vessels of left lower extremity (ICD-10) Varicose veins of bilateral lower extremities with pain ?I83.813 - Varicose veins of bilateral lower extremities with pain (ICD-10) Hypertension ?I10 - Essential (primary) hypertension (ICD-10) Surgical History (Updated 01/17/24 @ 11:10 by López Colvin) S/P sclerotherapy of varicose veins ?Z98.890 - Other specified postprocedural states (ICD-10) ?Z86.79 - Personal history of other diseases of the circulatory system (ICD- 10) S/P sclerotherapy of varicose veins ?Z98.890 - Other specified postprocedural states (ICD-10) ?Z86.79 - Personal history of other diseases of the circulatory system (ICD- 10) H/O tubal ligation ?Z98.51 - Tubal ligation status (ICD-10) History of cholecystectomy ?Z90.49 - Acquired absence of other specified parts of digestive tract (ICD- 10) H/O: hysterectomy ?Z90.710 - Acquired absence of both cervix and uterus (ICD-10) Family History (Updated 01/03/24 @ 07:52 by López Colvin) Other Family history of hypertension Family history of stroke Heart disease Pain due to varicose veins of both lower extremities Social History (Updated 01/03/24 @ 07:53 by López Colvin) Within the past year, how often did you have a drink containing alcohol: monthly or less Smoking status: Never smoker Non-prescribed substance use: denies use Meds Home Medications and Allergies Home Medications ?Medication ?Instructions ?Recorded ?Confirmed ?Type conjugated estrogens 0.3 mg tablet 0.3 mg PO DAILY 01/03/24 01/03/24 History (Premarin) dextroamphetamine-amphetamine 5 mg 1.25 mg PO DAILY 01/03/24 01/03/24 History tablet (Adderall) triamterene 37.5 1 cap PO DAILY 01/03/24 01/03/24 History mg-hydrochlorothiazide 25 mg capsule aspirin 325 mg capsule 325 mg PO DAILY 01/10/24 01/10/24 History Allergies Allergy/AdvReac Type Severity Reaction Status Date / Time No Known Drug Allergies Allergy Verified 01/03/24 07:54 Exam Narrative Exam Narrative: Goldy Quintana MD personally performed the services described in this documentation, as scribed by López Colvin RN in my presence and it is both accurate and complete. López Quintana RN, am scribing for, and in the presence of, Dr. Goldy Lazo and in the presence of the patient. Constitutional Documenting provider has reviewed patient's vital signs: yes Common normals: oriented x3 Cardio Peripheral pulses: posterior tibial pulses present and dorsalis pedis pulses present Extremity Common normals: normal capillary refill General: calf tenderness and edema Right lower extremity: lower leg Right lower leg: inspection and palpation Left lower extremity: lower leg Left lower leg: inspection and palpation Neuro Common normals: oriented x3 Assessment and Plan Assessment and Plan (1) Varicose veins of bilateral lower extremities with pain: Plan Patient to return for additional sclerotherapy Goldy Quintana MD personally performed the services described in this documentation, as scribed by López Colvin RN in my presence and it is both accurate and complete. López Quintana RN, am scribing for, and in the presence of, Dr. Goldy Lazo and in the presence of the patient. Procedures Procedure Instructions Procedures sclerotherapy: Risks and benefits of the procedure were discussed at length and informed written consent was obtained.? Time-out procedure was performed and the correct patient and procedure were confirmed.? Staff present during time-out: López Colvin RN and Goldy Lazo MD.? Patient prepped and procedure performed in usual sterile fashion. Injections performed by and López Colvin RN Sclerosing Agent:?? 4cc 0.5% Polidocanol Site Injected: left leg Number of Injections: 32 Anesthesia: Supercooled air The patient tolerated the procedure well without complication.? Hemostasis was obtained and thigh-high compression stocking was applied by patient.? Instructed patient to wear stocking for at least 96 hours and sleep with it and only remove for showering.? Will wear stocking for 2 weeks.? The patient verbalizes understanding and states they will comply.? Patient was given post-procedure instructions. Patient was discharged in good condition.? Scheduled to undergo additional injection sclerotherapy on 01/31/2024.
--- NOTE | 2024-01-16 15:23 | W.VEIN ---
Discharge Plan Discharge Disposition: Home, Self-Care Outpatient Diagnostics: VC INJ Sclerosing SOLMULT Vein (Routine) Timeframe: 2 Weeks Facility: [facility] - Location: Vein Center Ordered By: Goldy Lazo VC INJ Sclerosing SOLMULT Vein (Routine) Timeframe: 2 Weeks Facility: [facility] - Location: Vein Center Ordered By: Goldy Lazo Follow Up Appointments: 01/31/2024 Plan of Treatment: sclerotherapy right leg Patient Instructions: Polidocanol (By injection) Print Language: Guamanian Discharge Date/Time: 01/17/24 11:06
--- NOTE | 2024-01-16 15:31 | W.VEIN ---
Discharge Plan Discharge Disposition: Home, Self-Care Outpatient Diagnostics: VC INJ Sclerosing SOLMULT Vein (Routine) Timeframe: 2 Weeks Facility: [facility] - Location: Vein Center Ordered By: Goldy Lazo VC INJ Sclerosing SOLMULT Vein (Routine) Timeframe: 2 Weeks Facility: [facility] - Location: Vein Center Ordered By: Goldy Lazo Follow Up Appointments: 01/31/2024 Plan of Treatment: sclerotherapy right leg Patient Instructions: Polidocanol (By injection) Print Language: Nauruan Discharge Date/Time: 01/17/24 11:06
--- NOTE | 2024-01-17 09:56 | VEIN_ITS ---
[address] [address] Patient Name: SANDY BOBO MRN: [id number] date: 1955 Sex: F Assigned Patient Location: [facility] Current Patient Location: Accession/Order Number: [id number] Exam Date: 01/17/2024 09:56 Report Date: 01/17/2024 11:51 At the request of: PAPA HUNTER Procedure: VC INJ Sclerosing SOLMULT Vein EXAMINATION: VC INJ Sclerosing SOLMULT Vein HISTORY: I83.813 - Varicose veins of bilateral lower extremities w... COMPARISON: No relevant comparison available. TECHNIQUE: The risks and benefits of the procedure were explained at length to the patient and informed written consent was obtained. López Colvin was present and assisted. The procedure was performed under sterile technique. The patient's leg was wrapped with Coban and postprocedural verbal and written instructions provided. SCLEROSANT: 4 cc, 0.5% polidocanol VEIN(S) INJECTED: 32 veins in the left leg VISUALIZATION: Ultrasound was not used to visualize the sclerosant ANESTHESIA: Supercooled air COMPLICATIONS: None VEIN/VC INJ Sclerosing SOLMULT Vein IMPRESSION: Technically successful sclerotherapy as described Electronically authenticated by: PAPA HUNTER Date: 01/17/2024 11:51
[2024-01-17 10:15] VITALS: BP 118/72; PULSE 88; O2SAT 97
--- OUTSIDE RECORDS SUMMARY | 2024-01-17 10:17 | XMS_ITS | CCD ---
Author Organization [facility] Care Team Providers Care Human Resources Temp Name Role Phone ELSA, DR PAPA Agrawal [...] Unavailable Timoteorance Papa ENGLAND Primary Care Provider [phone] PAPA WHITEHEAD Attending Unavailable DEFRANCE, PAPA Avila [...] Take by mouth. 0 Active estrogens, conjugated (alf) 0.9 mg oral tablet (4 sources) Estrogen [...] [Mass/Vol] 4.0 g/dL Normal 3.2-5.[address] [facility] Comment on above: Performed By: #### L IVR #### [facility] ([id number]) [address] [facility], [address] [place] [address] ALP [Catalytic activity/Vol] 104 U/L Normal 39-130 [facility] Comment on above: Performed By: #### L IVR #### [facility] ([id number]) [address] [facility], [address] [place] [address] ALT [Catalytic activity/Vol] 17 U/L Normal 0-31 [facility] Comment on above: Performed By: #### L IVR #### [facility] ([id number]) [address] [facility], [facility] [address] [place] [address] AST [Catalytic activity/Vol] 18 U/L Normal 0-41 [facility] Comment on above: Performed By: #### L IVR #### [facility] ([id number]) [address] [facility], [address] [place] [address] Bilirubin [Mass/Vol] 0.7 mg/dL Normal 0.3-1.2 [facility] Comment on above: Performed By: #### L IVR #### [facility] ([id number]) [address], [address] [place] [address] Bilirubin.direct [Mass/Vol] 0.1 mg/dL Normal 0.0-0.4 [facility] Comment on above: Performed By: #### L IVR #### [facility] ([id number]) [address], [address] [place] [address] Protein [Mass/Vol] 6.9 g/dL Normal 6.0-8.[address] [facility] Comment on above: Performed By: #### L IVR #### [facility] ([id number]) [address], [address] [place] [address] CBC AND AUTO DIFFon 06-18-19 ABSOLUTE BASOPHIL 0.0 X10E9/L Normal 0.0-0.[address] [facility] Comment on above: Performed By: #### Roberth LUTZ, 45510-8, THYR, CBCA #### [facility] ([id number]) [address] [address] [place] [address] ABSOLUTE NEUTROPHIL 4.3 X10E9/L Normal 1.5-6.6 [facility] Comment on above: Performed By: #### Roberth LUTZ, 96463-6, THYR, CBCA #### [facility] ([id number]) [address] [address] [place] [address] Basophils/100 WBC (Bld) 0.4 % Normal [facility] Comment on above: Performed By: #### Roberth LUTZ, 49968-5, THYR, CBCA #### [facility] ([id number]) [address] [address] [place] [address] Eosinophils (Bld) [#/Vol] 0.1 10*3/uL Normal 0.0-0.4 [facility] Comment on above: Performed By: #### C BOLIVAR, 88121-3, THYR, CBCA #### [facility] ([id number]) [address], [address] [place] [address] Eosinophils/100 WBC (Bld) 1.3 % Normal [facility] Comment on above: Performed By: #### C BOLIVAR 96020-8, THYR, CBCA #### [facility] ([id number]) [address], [facility] [address] [place] [address] Erythrocyte distribution width (RBC) [Ratio] 13.4 % Normal 11.5-15.0 [facility] Comment on above: Performed By: #### C BOLIVAR, 90410-0, THYR, CBCA #### [facility] ([id number]) [address], [facility] [address] [place] [address] Hematocrit (Bld) [Volume fraction] 41.7 % Normal 35-47 [facility] Comment on above: Performed By: #### C BOLIVAR 06444-9, THYR, CBCA #### [facility] ([id number]) [address] [address] [place] [address] Hemoglobin (Bld) [Mass/Vol] 14.1 g/dL Normal 11.7-15.5 [facility] Comment on above: Performed By: #### C BOLIVAR, 34968-1, THYR, CBCA #### [facility] ([id number]) [address] [address] [place] [address] Lymphocytes (Bld) [#/Vol] 3.4 10*3/uL Normal 1.0-3.5 [facility] Comment on above: Performed By: #### C BOLIVAR, 49301-3, THYR, CBCA #### [facility] ([id number]) [address] [address] [place] [address] Lymphocytes/100 WBC (Bld) 41.3 % Normal [facility] Comment on above: Performed By: #### C BOLIVAR, 44118-3, THYR, CBCA #### [facility] ([id number]) [address], [address] [place] [address] MCH (RBC) [Entitic mass] 28.5 pg Normal 27-34 [facility] Comment on above: Performed By: #### C BOLIVAR 77781-9, THYR, CBCA #### [facility] ([id number]) [address], [facility] [address] [place] [address] MCHC (RBC) [Mass/Vol] 33.8 g/dL Normal 32-36 [facility] Comment on above: Performed By: #### C BOLIVAR 15047-3, THYR, CBCA #### [facility] ([id number]) [address], [address] [place] [address] MCV (RBC) [Entitic vol] 84 fL Normal 80-100 [facility] Comment on above: Performed By: #### Roberth LUTZ, 86576-7, THYR, CBCA #### [facility] ([id number]) [address], [address] [place] [address] Monocytes (Bld) [#/Vol] 0.4 10*3/uL Normal 0-0.9 [facility] Comment on above: Performed By: #### Roberth LUTZ, 57654-9, THYR, CBCA #### [facility] ([id number]) [address], [address] [place] [address] Monocytes/100 WBC (Bld) 4.4 % Normal [facility] Comment on above: Performed By: #### Roberth LUTZ, 97068-7, THYR, CBCA #### [facility] ([id number]) [address], [address] [place] [address] Neutrophils/100 WBC (Bld) 52.6 % Normal [facility] Comment on above: Performed By: #### C BOLIVAR, 39048-4, THYR, CBCA #### [facility] ([id number]) [address] [address] [place] [address] Platelet mean volume (Bld) [Entitic vol] 7.8 fL Normal 7-12 [facility] Comment on above: Performed By: #### C BOLIVAR, 75539-9, THYR, CBCA #### [facility] ([id number]) [address] [address] [place] [address] Platelets (Bld) [#/Vol] 292 10*3/uL Normal 150-450 [facility] Comment on above: Performed By: #### C BOLIVAR, 65867-1, THYR, CBCA #### [facility] ([id number]) [address] [address] [place] [address] RBC COUNT 4.94 X10E12/L Normal 3.80-5.20 [facility] Comment on above: Performed By: #### C BOLIVAR, 47772-9, THYR, CBCA #### [facility] ([id number]) [address] [address] [place] [address] WBC (Bld) [#/Vol] 8.2 10*3/uL Normal 4.0-11.[address] [facility] Comment on above: Performed By: #### C BOLIVAR, 60266-5, THYR, CBCA #### [facility] ([id number]) [address], [address] [place] [address] COMPREHENSIVE METABOLIC PANE Willie 06-18-2023 Albumin [Mass/Vol] 4.1 g/dL Normal 3.2-5.[address] [facility] Comment on above: Performed By: #### C BOLIVAR, 36644-5, THYR, CBCA #### [facility] ([id number]) [address], [address] [place] [address] ALP [Catalytic activity/Vol] 110 U/L Normal 39-130 [facility] Comment on above: Performed By: #### C BOLIVAR, 49145-8, THYR, CBCA #### [facility] ([id number]) [address], [address] [place] [address] ALT [Catalytic activity/Vol] 15 U/L Normal 0-31 [facility] Comment on above: Performed By: #### C BOLIVAR, 42358-1, THYR, CBCA #### [facility] ([id number]) [address], [address] [place] [address] Anion gap [Moles/Vol] 9 mmol/L Normal 5-15 [facility] Comment on above: Performed By: #### C BOLIVAR, 84200-7, THYR, CBCA #### [facility] ([id number]) [address], [address] [place] [address] AST [Catalytic activity/Vol] 15 U/L Normal 0-41 [facility] Comment on above: Performed By: #### C BOLIVAR, 51642-2, THYR, CBCA #### [facility] ([id number]) [address], [address] [place] [address] Bilirubin [Mass/Vol] 0.6 mg/dL Normal 0.3-1.2 [facility] Comment on above: Performed By: #### C BOLIVAR, 07282-4, THYR, CBCA #### [facility] ([id number]) [address], [address] [place] [address] Calcium [Mass/Vol] 8.8 mg/dL Normal 8.5-10.[address] [facility] Comment on above: Performed By: #### C BOLIVAR, 29858-7, THYR, CBCA #### [facility] ([id number]) [address], [address] [place] [address] Chloride [Moles/Vol] 104 mmol/L Normal 98-109 [facility] Comment on above: Performed By: #### C BOLIVAR 33270-9, THYR, CBCA #### [facility] ([id number]) [address], [facility] [address] [place] [address] CO2 [Moles/Vol] 28 mmol/L Normal 22-32 [facility] Comment on above: Performed By: #### C BOLIVAR 41753-0, THYR, CBCA #### [facility] ([id number]) [address] [address] [place] [address] Creatinine [Mass/Vol] 0.66 mg/dL Normal 0.40-1.00 [facility] Comment on above: Result Comment: METH OD TRACEABLE TO IDMS STANDARD Performed By: #### C BOLIVAR 68464-4, THYR, CBCA #### [facility] ([id number]) [address], [address] [place] [address] eGFR (CKD-EPI) NON-RACE DEPENDENT >90 Normal >59 [facility] Comment on above: Result Comment: Reported eGFR is based on the CKD-EPI 2020 equation that does not use a race coefficient. Performed By: #### C BOLIVAR 85870-3, THYR, CBCA #### [facility] ([id number]) [address], [facility] [address] [place] [address] Glucose [Mass/Vol] 100 mg/dL High 65-[address] [facility] Comment on above: Performed By: #### C BOLIVAR 12767-6, THYR, CBCA #### [facility] ([id number]) [address] [address] [place] [address] Potassium [Moles/Vol] 3.8 mmol/L Normal 3.5-5.0 [facility] Comment on above: Performed By: #### C BOLIVAR 92622-6, THYR, CBCA #### [facility] ([id number]) [address], [address] [place] [address] Protein [Mass/Vol] 7.0 g/dL Normal 6.0-8.[address] [facility] Comment on above: Performed By: #### Roberth LUTZ, 62776-2, THYR, CBCA #### [facility] ([id number]) [address], [address] [place] [address] Sodium [Moles/Vol] 141 mmol/L Normal 134-[address] [facility] Comment on above: Performed By: #### Roberth LUTZ, 66142-5, THYR, CBCA #### [facility] ([id number]) [address], [address] [place] [address] Urea nitrogen [Mass/Vol] 15 mg/dL Normal 5-27 [facility] Comment on above: Performed By: #### Roberth LUTZ, 00424-4, THYR, CBCA #### [facility] ([id number]) [address], [address] [place] [address] Lipid 1996 panelon 4 Cholesterol [Mass/Vol] 151 mg/dL Normal 150-200 [facility] Comment on above: Performed By: #### Roberth LUTZ, 27495-9, THYR, CBCA #### [facility] ([id number]) [address], [address] [place] [address] Cholesterol in HDL [Mass/Vol] 68 mg/dL Normal >39 [facility] Comment on above: Result Comment: HDL <40 mg/dL - High Risk HDL > or = 40mg/dL- Desirable HDL >60 mg/dL - Negative Risk Performed By: #### C BOLIVAR, 45332-9, THYR, CBCA #### [facility] ([id number]) [address] [address] [place] [address] Cholesterol in LDL [Mass/Vol] 52 mg/dL Normal <130 [facility] Comment on above: Result Comment: LDL <100 mg/dL - Desirable LDL >160 mg/dL - High Risk Performed By: #### C BOLIVAR, 67677-4, THYR, CBCA #### [facility] ([id number]) [address] [address] [place] [address] Cholesterol in VLDL [Mass/Vol] 31 mg/dL High 0-30 [facility] Comment on above: Performed By: #### C BOLIVAR, 12392-7, THYR, CBCA #### [facility] ([id number]) [address] [address] [place] [address] CHOLESTEROL:HDL 2.2 Normal 1.0-5.0 [facility] Comment on above: Performed By: #### C BOLIVAR, 05485-9, THYR, CBCA #### [facility] ([id number]) [address] [address] [place] [address] Triglyceride [Mass/Vol] 157 mg/dL High 27-150 [facility] Comment on above: Performed By: #### C BOLIVAR, 22773-3, THYR, CBCA #### [facility] ([id number]) [address] [address] [place] [address] THYROID PROFILEon 06-18-2023 Free T4 [Mass/Vol] 0.85 ng/dL Normal 0.61-1.[address] [facility] Comment on above: Performed By: #### C BOLIVAR, 18823-9, THYR, CBCA #### [facility] ([id number]) [address] [address] [place] [address] TSH 2.32 uIU/mL Normal 0.49-4.67 [facility] Comment on above: Performed By: #### C , 02163-7, THYR, CBCA #### [facility] ([id number]) [address] [facility], [address] [place] [address] VC CONSULT FOLLOWUPon 2022 VC CONSULT FOLLOWUP Patient: SARA MALDONADO I Exam Date: 09/06/2022 : 1955 Gender:F Ordering : DR PAPA HUNTER M.D. Admission #: [id number] Family : Order #: [id number] CLICK HERE TO VIEW EXAM RADIOLOGY REPORT [...] Herrera M.D. on 09/06/2022 at 14:53 Normal [facility] VC EXT VENOUS LT LIMITEDon 0 09-06-2022 VC EXT VENOUS LT LIMITED Patient: SANDY MALDONADO Exam Date: 09/06/2022 : 1955 Gender:F Ordering : DR PAPA HUNTER M.D. Admission #: [id number] Family : Order #: [id number] CLICK HERE TO VIEW EXAM RADIOLOGY REPORT [...] Herrera M.D. on 09/06/2022 at 15:02 Normal [facility] VC ENDOVENOUS ABL 1ST V LTon 08-31-2022 VC ENDOVENOUS ABL 1ST V LT Patient: SANDY MALDONADO Exam Date: 08/31/2022 : 1955 Gender:F Ordering : DR PAPA HUNTER M.D. Admission #: [id number] Family : Order #: [id number] CLICK HERE TO VIEW EXAM RADIOLOGY REPORT [...] Waldemar Herrera M.D. on 08/31/2022 at 14:[address] [facility] VC COMP CONSULTATIONon 07-06 VC COMP CONSULTATION Patient: DO CHRISTIAN MALDONADO Exam Date: 07/06/2022 : 1955 Gender:F Ordering : DR PAPA HUNTER M.D. Admission #: [id number] Family : Order #: [id number] CLICK HERE TO VIEW EXAM RADIOLOGY REPORT [...] for several years. 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 Elevated legs and increased physical activity for symptomatic relief Nurse notes, history and physical were reviewed and confirmed, see attached forms. The nurse was present throughout the physical exam and consultation Dictated by: Papa Hunter MD on 07/06/2022 at 12:57 Approved by: Papa Hunter MD on 07/06/2022 at 13:14 Normal [facility] VC VENOUS REFLUX NERY LMTon 0 07-06-2022 VC VENOUS REFLUX NERY LMT Patient: SANDY MALDONADO Exam Date: 07/06/2022 : 1955 Gender:F Ordering : DR PAPA HUNTER M.D. Admission #: [id number] Family : Order #: [id number] CLICK HERE TO VIEW EXAM RADIOLOGY REPORT [...] thrombus. Compressibility: Normal. Flow: Deep venous reflux. 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 4.7 mm with [...] Hunter MD on 07/06/2022 at 12:40 Normal [facility] Vital Signs Date Time Vital Sign Value Performing Clinician Facility 06-14-2023 [id number] Body height 161.3 cm Papa Whitehead MD Work Phone: [facility] 06-14-2023 09:11-0500 Body mass index (BMI) [Ratio] 34 kg/m2 Papa Whitehead MD Work Phone: [facility] 06-14-2023 09:11-0500 Body temperature 96.49 [degF] Papa Whitehead MD Work Phone: [facility] 06-14-2023 09:11-0500 Body weight 88.45 kg Papa Whitehead MD Work Phone: [facility] 06-14-2023 09:11-0500 Diastolic blood pressure 88 mm[Hg] Papa Whitehead MD Work Phone: [facility] 06-14-2023 09:11-0500 Heart rate 80 /min Papa Whitehead MD Work Phone: [facility] 06-14-2023 09:11-0500 Respiratory rate 16 /min Papa Whitehead MD Work Phone: [facility] 06-14-2023 09:11-0500 Systolic blood pressure 130 mm[Hg] Papa Whitehead MD Work Phone: [facility] Encounters Encounter Date Encounter Type Care Provider Facility Start: 09-24-2023 End: 09-25-2023 ambulatory [facility] Start: 08-13-2023 End: 08-13-2023 ambulatory [facility] Start: 07-10-2023 Refill 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[employer] Work Phone: [facility] Start: 06-18-2023 End: 06-19-2023 ambulatory [facility] Start: 06-14-2023 End: 06-14-2023 ambulatory [facility] Start: 06-14-2023 Encounter for genera l adult medical examination without abnormal findings [facility] Start: 06-14-2023 End: 06-14-2023 Patient encounter procedure Papa Whitehead MD Work Phone: [facility] Comment on above: Routine general medi rajat examination at a health care facility (Primary Dx); Attention deficit hyperactivity disorder (ADHD), predominantly inattentive type; Essential hypertension, benign; BMI 34.0-34.9,adult Start: 06-14-2023 End: 06-14-2023 Patient encounter status Papa Whitehead MD [facility]: Start: 05-10-2023 Refill Papa hackett MD Work Phone: [facility] Comment on [...] Adult BMI Screening Adult BMI Screen ing [facility] Start: 06-14-2024 Depression Screening Depression Scre ening [facility] Start: 06-14-2024 Fall Risk Screening Fall Risk Screen ing [facility] Start: 06-14-2024 Medicare Annual Well ness Visit Medicare Annual Wellness Visit [facility] Start: 06-14-2024 Tobacco Screening Tobacco Screening [facility] Start: 03-11-2024 Adult BMI Screening Adult BMI Screen ing [facility] Start: 12-08-2023 Depression Screening Depression Scre ening [facility] Start: 12-08-2023 Fall Risk Screening Fall Risk Screen ing [facility] Start: 12-08-2023 Tobacco Screening Tobacco Screening [facility] Start: 08-13-2023 End: 08-13-2023 Patient encounter procedure 08/13/2023 9:15 AM EDT Office Visit [facility] [address] [place] [phone] Papa Whitehead MD [address] [place] [address] [facility] Start: 06-14-2023 End: 06-13-2024 CBC W Auto Differential panel - Blood CBC auto differential Lab Routine Essential hypertension, benign BMI 34.0-34.9,adult Expected: 06/14/2023, Expires: 06/13/2024 [facility] Work Phone: Comment on above: Expected: 06/14/2023 , Expires: 06/13/2024 Start: 06-14-2023 End: 06-13-2024 Comprehensive metabolic 2000 panel - Serum or Plasma Comprehensive metabolic panel Lab Routine Essential hypertension, benign BMI 34.0-34.9,adult Expected: 06/14/2023, Expires: 06/13/2024 [facility] Comment on above: Expected: 06/14/2023 , Expires: 06/13/2024 Start: 06-14-2023 End: 06-13-2024 Lipid 1996 panel - Serum or Plasma Lipid profile Lab Routine Essential hypertension, benign BMI 34.0-34.9,adult Expected: 06/14/2023, Expires: 06/13/2024 [facility] Comment on above: Expected: 06/14/2023 , Expires: 06/13/2024 Start: 06-14-2023 End: 06-13-2024 Thyroid profile includes TSH FT4 Thyroid profile includes TSH FT4 Lab Routine Essential hypertension, benign BMI 34.0-34.9,adult Expected: 06/14/2023, Expires: 06/13/2024 [facility] Comment on above: Expected: 06/14/2023 , Expires: 06/13/2024 Start: 06-14-2023 End: 06-14-2023 Patient encounter procedure 06/14/2023 9:15 AM EST Office Visit [facility] [address] [place] [address] Papa Whitehead MD [address] [place] [address] [facility] Start: 12-28-2022 COVID-19 Vaccine ( season) COVID-19 Vaccine ( season) [facility] Start: 03-18-2022 DTaP,Tdap and Td Vaccines (2 - Td or Tdap) DTaP,Tdap and Td Vaccines (2 - Td or Tdap) [facility] Start: 03-03-2015 Screening for malign ant neoplasm of colon Colonoscopy [facility] Start: 12-23-2005 Administration of varicella zoster vaccine Zoster (Shingles) Vaccine (1 of 2) [facility] Start: 12-23-1973 Adult BMI Follow Up Plan Adult BMI Follow Up Plan [facility] Start: 1955 Medicare Annual Well ness Visit Medicare Annual Wellness Visit [facility] Immunizations Immunization Date Immunization Notes Care Provider [facility] 02-05-2023 Influenza, injectabl e, Madin Hien Canine Kidney, preservative free, quadrivalent Papa Whitehead MD Work Phone: [facility] 01-19-2022 Influenza, injectabl e, Madin Hien Canine Kidney, preservative free, quadrivalent Papa Whitehead MD Work Phone: [facility] 01-18-2021 influenza, injectabl e, quadrivalent, preservative free Papa Whitehead MD Work Phone: [facility] 05-26-2020 COVID-19, mRNA, LNP- S, PF, 100mcg/0.5mL Dose Papa Whitehead MD Work Phone: [facility] 04-28-2020 COVID-19, mRNA, LNP- S, PF, 100mcg/0.5mL Dose Papa Whitehead MD Work Phone: [facility] 01-26-2020 Seasonal, quadrivale nt, recombinant, injectable influenza vaccine, preservative free Papa Whitehead MD Work Phone: [facility] 02-06-2018 influenza virus vacc ine, unspecified formulation Papa Whitehead MD Work Phone: [facility] 02-06-2018 influenza, injectabl e, quadrivalent, preservative free Papa Whitehead MD Work Phone: [facility] 02-24-2014 influenza virus vacc ine, unspecified formulation Papa Whitehead MD Work Phone: [facility] 02-24-2014 influenza, injectabl e, quadrivalent, contains preservative Papa Whitehead MD Work Phone: [facility] 03-18-2012 influenza virus vacc ine, unspecified formulation Papa Whitehead MD Work Phone: [facility] 03-18-2012 influenza, seasonal, injectable Papa Whitehead MD Work Phone: [facility] 03-18-2012 tetanus toxoid, redu tran diphtheria toxoid, and acellular pertussis vaccine, adsorbed Papa Whitehead MD Work Phone: [facility] 04-27-2009 novel influenza-H1N1 -09, all formulations Papa Whitehead MD Work Phone: [facility] 04-27-2009 novel influenza-H1N1 -09, preservative-free, injectable Papa Whitehead MD Work Phone: [facility] 02-22-2009 novel influenza-H1N1 -09, all formulations Papa Whitehead MD Work Phone: [facility] 02-22-2009 novel Influenza-H1N1 -09, live virus for nasal administration Papa Whitehead MD Work Phone: [facility] Payers Date Payer Category Payer Private Health Insurance [facility] SUPPLEMENT [id number] 2023-Present [phone] [address] [place] [address] [id number] 2023 Unknown [id number] 2021 Medicare MEDICARE MEDICAR E PART A & B [id number] 2021-Present [phone] [address] [place] [address] [id number] 1959 Medicare [id number] 1959 Unknown [id number] 1955 Unknown [id number] 1955 Unknown [id number] 1955 Unknown [id number] 1955 Unknown [id number] 1955 Unknown [id number] 1955 Unknown [id number] 1955 Unknown [id number] .[id number] 1955 Unknown [id number] .[id number] 1955 Unknown [id number] Social History Date Type Detail Facility Start: 04-13-2022 Tobacco smoking status NHIS Ex-smoker [facility] End: 04-29-1969 History of tobacco use Current smoker [facility] End: 04-29-1969 History of tobacco use Cigarette Smoker [facility] Start: 04-13-2022 End: 06-14-2023 Cigarettes smoked current (pack per day) - Reported 1 [facility] Start: 04-13-2022 Tobacco use and exposure Smokeless tobacco non-user [facility] Start: 03-11-2023 End: 06-14-2023 Alcohol intake Current drinker of alcohol (finding) [facility] Start: 04-13-2022 End: 06-14-2023 Social connection and isolation panel [facility] Do you belong to any clubs or organizations such as yarsanism groups, unions, fraternal or athletic groups, or school groups? Yes [facility] Are you now , , , , never or living with a partner? [facility] How often to you hav e a drink containing alcohol? 2-4 times a month [facility] How many standard dr inks containing alcohol do you have on a typical day? 1 or 2 [facility] How often do you hav e 6 or more drinks on 1 occasion? Never [facility] How hard is it for y ou to pay for the very basics like food, housing, medical care, and heating Not hard at all [facility] Do you feel stress - tense, restless, nervous, or anxious, or unable to sleep at night because your mind is troubled all the time - these days [OSQ] Only a little [facility] Start: 12-13-2020 Education 18 [facility] Start: 1955 Sex Assigned At Female [facility] Start: 01-29-2022 Gender identity Identifies as female gender (finding) [facility] Start: 01-29-2022 Sexual orientation Heterosexual (finding) [facility] Note 07-10-2023 Telephone Encounter - Corina Medrano LPN - 07/10/2023 6:23 AM EDT Note Date & Type Note Facility 07-10-2023 Miscellaneous Notes Formattin g of this note might be different from the original. [facility] requesting refill of Premarin documented in this encounter [facility] Telephone encounter Note 07-10-2023 Telephone Encounter - Corina Medrano LPN - 07/10/2023 6:23 AM EDT Note Date & Type Note Facility 07-10-2023 Telephone encount er Note Lorettar requesting refill of Premarin [facility] History of Present illness Narrative 06-14-2023 Papa Whitehead MD - 06/14/2023 9:15 AM EST Note Date & Type Note Facility 06-14-2023 History of Present illness Narrative Images from the original note were not included. [address] [facility] [place] [id number] Subjective: Sandy Maldonado is a 67 y.o. female who presents for a Medicare Annual Wellness exam. The following portions of the patient's history were reviewed and updated as appropriate: Health Risk Assessment, allergies, past medical history, past surgical history, social history, family history, and immunization history Accompanied by: self History Provided By: self Language and Other Communication Barriers: Primary Language Spoken: Estonian Highest Level of Education Completed: college graduate [...] Do you have a durable power of compliance attorney?: (!) No Hearing Assessment Do you [...] Problem List Diagnosis Date Noted Obesity, morbid ([facility]) 05/24/2022 BMI 32.0-32.9,adult 11/27/2017 Essential [...] Recheck in 2m [facility]23 Patient Instructions Note Date [...] services: Not applicable [facility] 05-10-2023 Telephone Encounter - Corina Medrano LPN - 05/10/2023 1:33 PM EST Note Date & Type Note Facility 05-10-2023 Miscellaneous Notes Formattin g of this note might be different from the original. Patient via MyChart requesting refill of Adderall to [facility] Telephone encounter Note 05-10-2023 Telephone Encounter - Corina Medrano LPN - 05/10/2023 1:33 PM EST Note Date & Type Note Facility 05-10-2023 Telephone encount er Note Patient via [employer] requesting refill of Adderall to [facility] Evaluation note Note Date & Type Note Facility Evaluation note Diagnosis Attention deficit hyperactivity disorder (ADHD), predominantly inattentive type [facility] Note Date [...] and content) DATE CREATED AUTHOR 09/13/2022 [facility] DATE CREATED AUTHOR AUTHOR'S ORGANIZ ATION 08/14/2023 [facility] DATE CREATED AUTHOR AUTHOR'S ORGANIZ ATION 09/25/2023 [facility] Reason for Visit (unrecogniz ed section and content) Reason Onset Date Comments Med Refill 05/10/2023 Reason Comments Annual Exam Medicare Wellness Reason Comments Med Refill Care Teams (unrecognized sec tion and content) Human Resources Temp Relationship Specialty Start Date End Date Papa Whitehead MD [address] [place] [address] PCP - General Family Medicine 07/24/16 Human Resources Temp Relationship Specialty Start Date End Date Papa Whitehead MD [address] [place] [address] PCP - General Family Medicine 07/24/16 Human Resources Temp Relationship Specialty Start Date End Date Papa Whitehead MD [address] [place] [address] PCP - General Family Medicine 07/24/16 FOR [...] BE BASED ON THE PRIMARY CLINICAL RECORDS. [employer] [facility]. provides no warranty or guarantee of the accuracy or completeness of information in this document.
== END 2024-01-17 11:06 | disposition home or self-care (01) ==
LOC: VC 09:55
PROVIDERS: PCP Radiology Diagnostic Radiology; Visit Provider Radiology Diagnostic Radiology
DX: I83.813 Varicose veins of bilateral lower extremities with pain (principal)
CPT/HCPCS: 36471

== ENCOUNTER 2024-01-31 10:13 | Outpatient (OUT) | payer MEDICARE, SELFPAY ==
--- NOTE | 2024-01-30 07:47 | VEINCLINIC_ITS ---
Vital Signs 01/31/24 10:25 BP 132/77 BP Location Right Brachial BP Position Supine BP Cuff Size Adult BP Source Automatic Cuff Respiration 16 Pulse 82 Pulse Source Monitor Pulse Oximetry (%) 98 Oxygen Delivery Method Room Air Comment The patient's blood pressure is elevated. Varicose Veins Patient in this day for sclerotherapy Waldemar Quintana MD personally performed the services described in this documentation, as scribed by López Colvin RN in my presence and it is both accurate and complete. ILópez RN, am scribing for, and in the presence of, Dr. Waldemar Herrera and in the presence of the patient. thigh: bilateral (symptoms symmetrical bilaterally), knee: bilateral, calf: bilateral, ankle: bilateral and bates: bilateral aching, cramping and dull 6 4years Worsened in recent months: Yes standing, sitting and walking analgesics (Tylenol), elevating extremities, compression stockings and exercise Reports muscle spasms of leg, fatigue, heaviness, limb pain, edema and leg edema History of lower extremity trauma: No Superficial thrombophlebitis: No Family history of varicose veins: yes (father) Has patient had previous lower extremity venous surgery: No Patient has previously received the following treatment(s) for lower extremity varicose veins: Reports none Does patient have a history of : yes Does patient intend to have future pregnancies: no Has patient had lower extremity venous scan with relux testing: No Support hose used: Yes Problems walking or doing physical activity: Yes How does it affect you: exericse limit decreased due to pain Do you walk much: Yes Do you stand much: Yes Review of Systems ROS Narrative Waldemar Quintana MD personally performed the services described in this documentation, as scribed by López Colvin RN in my presence and it is both accurate and complete. López Quintana RN, am scribing for, and in the presence of, Dr. Waldemar Herrera and in the presence of the patient. Status of ROS 10 or more systems reviewed and unremark able except as noted in history and below Cardiovascular Reports: edema Integumentary/Breast Reports: itching, redness, skin pain and changes in skin color Neurological Reports: weakness in extremities [facility] Medical History (Updated 01/10/24 @ 07:58 by Ashlee Bollenbacher) Phlebitis and thrombophlebitis of superficial vessels of left lower extremity ?I80.02 - Phlebitis and thrombophlebitis of superficial vessels of left lower extremity (ICD-10) Varicose veins of bilateral lower extremities with pain ?I83.813 - Varicose veins of bilateral lower extremities with pain (ICD-10) Hypertension ?I10 - Essential (primary) hypertension (ICD-10) Surgical History (Updated 01/31/24 @ 10:57 by López Colvin) S/P sclerotherapy of varicose veins ?Z98.890 - Other specified postprocedural states (ICD-10) ?Z86.79 - Personal history of other diseases of the circulatory system (ICD- 10) S/P sclerotherapy of varicose veins ?Z98.890 - Other specified postprocedural states (ICD-10) ?Z86.79 - Personal history of other diseases of the circulatory system (ICD- 10) S/P sclerotherapy of varicose veins ?Z98.890 - Other specified postprocedural states (ICD-10) ?Z86.79 - Personal history of other diseases of the circulatory system (ICD- 10) H/O tubal ligation ?Z98.51 - Tubal ligation status (ICD-10) History of cholecystectomy ?Z90.49 - Acquired absence of other specified parts of digestive tract (ICD- 10) H/O: hysterectomy ?Z90.710 - Acquired absence of both cervix and uterus (ICD-10) Family History (Updated 01/03/24 @ 07:52 by López Colvin) Other Family history of hypertension Family history of stroke Heart disease Pain due to varicose veins of both lower extremities Social History (Updated 01/03/24 @ 07:53 by López Colvin) Within the past year, how often did you have a drink containing alcohol: monthly or less Smoking status: Never smoker Non-prescribed substance use: denies use Meds Home Medications and Allergies Home Medications ?Medication ?Instructions ?Recorded ?Confirmed ?Type conjugated estrogens 0.3 mg tablet 0.3 mg PO DAILY 01/03/24 01/03/24 History (Premarin) dextroamphetamine-amphetamine 5 mg 1.25 mg PO DAILY 01/03/24 01/03/24 History tablet (Adderall) triamterene 37.5 1 cap PO DAILY 01/03/24 01/03/24 History mg-hydrochlorothiazide 25 mg capsule aspirin 325 mg capsule 325 mg PO DAILY 01/10/24 01/10/24 History Allergies Allergy/AdvReac Type Severity Reaction Status Date / Time No Known Drug Allergies Allergy Verified 01/03/24 07:54 Exam Narrative Exam Narrative: Waldemar Quintana MD personally performed the services described in this documentation, as scribed by López Colvin RN in my presence and it is both accurate and complete. ILópez RN, am scribing for, and in the presence of, Dr. Waldemar Herrera and in the presence of the patient. Constitutional Documenting provider has reviewed patient's vital signs: yes Common normals: oriented x3 Cardio Peripheral pulses: posterior tibial pulses present and dorsalis pedis pulses present Extremity Common normals: normal capillary refill General: calf tenderness and edema Right lower extremity: lower leg Right lower leg: inspection and palpation Left lower extremity: lower leg Left lower leg: inspection and palpation Neuro Common normals: oriented x3 Assessment and Plan Assessment and Plan (1) Varicose veins of bilateral lower extremities with pain: Plan additional sclerotherapy Waldemar Quintana MD personally performed the services described in this documentation, as scribed by López Colvin RN in my presence and it is both accurate and complete. López Quintana RN, am scribing for, and in the presence of, Dr. Waldemar Herrera and in the presence of the patient. Procedures Procedure Instructions Procedures sclerotherapy: Risks and benefits of the procedure were discussed at length and informed written consent was obtained.? Time-out procedure was performed and the correct patient and procedure were confirmed.? Staff present during time-out: López Colvin RN and Waldemar Herrera MD.? Patient prepped and procedure performed in usual sterile fashion. Injections performed by Dr. Herrera and López Colvin RN Sclerosing Agent:?? 4cc 0.5% Polidocanol Site Injected: Right leg Number of Injections: 23 Anesthesia: Supercooled air The patient tolerated the procedure well without complication.? Hemostasis was obtained and thigh-high compression stocking was applied by patient.? Instructed patient to wear stocking for at least 96 hours and sleep with it and only remove for showering.? Will wear stocking for 2 weeks.? The patient verbalizes understanding and states they will comply.? Patient was given post-procedure instructions. Patient was discharged in good condition.? Scheduled to undergo additional injection sclerotherapy on 03/03/2024 IWaldemar MD personally performed the services described in this documentation, as scribed by López Colvin RN in my presence and it is both accurate and complete. López Quintana RN, am scribing for, and in the presence of, Dr. Waldemar Herrera and in the presence of the patient.
--- NOTE | 2024-01-30 07:50 | W.VEIN ---
Discharge Plan Discharge Disposition: Home, Self-Care Outpatient Diagnostics: VC INJ Sclerosing SOLMULT Vein (Routine) Timeframe: 2 Weeks Facility: [facility] - Location: [facility] Ordered By: Waldemar Herrera Follow Up Appointments: 02/01/2024 Patient Instructions: Polidocanol (By injection) (Asclera, Varithena) Print Language: Malay Discharge Date/Time: 01/31/24 11:02
--- NOTE | 2024-01-31 10:14 | VEIN_ITS ---
[address] [address] Patient Name: SANDY BOBO MRN: [id number] date: 1955 Sex: F Assigned Patient Location: Current Patient Location: Accession/Order Number: [id number] Exam Date: 01/31/2024 10:15 Report Date: 01/31/2024 12:26 At the request of: PAPA HUNTER Procedure: VC INJ Sclerosing SOLMULT Vein EXAMINATION: VC INJ Sclerosing SOLMULT Vein HISTORY: I83.813 - Varicose veins of bilateral lower extremities w... The risks and benefits of the procedure were explained at length to the patient and informed written consent was obtained. The procedure was performed under sterile technique. The patient's leg was wrapped with Coban and postprocedural verbal and written instructions provided. López Colvin RN was present and assisted. SCLEROSANT: 2mL 0.5% Polidocanol. VEIN(S) INJECTED: 23 veins in the right leg. VISUALIZATION: Ultrasound was not used to visualize the sclerosant. ANESTHESIA: Supercooled air. COMPLICATIONS: None. Electronically authenticated by: ASHLEY METZGER Date: 01/31/2024 12:26
--- OUTSIDE RECORDS SUMMARY | 2024-01-31 10:21 | XMS_ITS | CCD ---
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 0 Active estrogens, conjugated (jail) 0.9 mg oral tablet (4 sources) Estrogen [...] above: Performed By: #### L IVR #### [facility] ([id number]) [address] [place] [address] ALP [Catalytic activity/Vol] 104 U/L Normal 39-130 [facility] Comment on above: Performed By: #### L IVR #### [facility] ([id number]) [address] [place] [address] ALT [Catalytic activity/Vol] 17 U/L Normal 0-31 [facility] Comment on above: Performed By: #### L IVR #### [facility] ([id number]) [address], [facility] [address] [place] [address] AST [Catalytic activity/Vol] 18 U/L Normal 0-41 [facility] Comment on above: Performed By: #### L IVR #### [facility] ([id number]) [address] [place] [address] Bilirubin [Mass/Vol] 0.7 mg/dL Normal 0.3-1.2 [facility] Comment on above: Performed By: #### L IVR #### [facility] ([id number]) [address], [address] [place] [address] Bilirubin.direct [Mass/Vol] 0.1 mg/dL Normal 0.0-0.4 [facility] Comment on above: Performed By: #### L IVR #### [facility] ([id number]) [address], [address] [place] [address] Protein [Mass/Vol] 6.9 g/dL Normal 6.0-8.0 [facility] Comment on above: Performed By: #### L IVR #### [facility] ([id number]) [address], [address] [place] [address] CBC AND AUTO DIFFon 06-18-19 ABSOLUTE BASOPHIL 0.0 X10E9/L Normal 0.0-0.2 [facility] Comment on above: Performed By: #### Roberth LUTZ, 16149-0, THYR, CBCA #### [facility] ([id number]) [address] [address] [place] [address] ABSOLUTE NEUTROPHIL 4.3 X10E9/L Normal 1.5-6.6 [facility] Comment on above: Performed By: #### Roberth LUTZ, 90006-9, THYR, CBCA #### [facility] ([id number]) [address] [address] [place] [address] Basophils/100 WBC (Bld) 0.4 % Normal [facility] Comment on above: Performed By: #### Roberth LUTZ, 15376-7, THYR, CBCA #### [facility] ([id number]) [address] [address] [place] [address] Eosinophils (Bld) [#/Vol] 0.1 10*3/uL Normal 0.0-0.4 [facility] Comment on above: Performed By: #### C BOLIVAR, 98841-1, THYR, CBCA #### [facility] ([id number]) [address], [address] [place] [address] Eosinophils/100 WBC (Bld) 1.3 % Normal [facility] Comment on above: Performed By: #### C BOLIVAR 60468-5, THYR, CBCA #### [facility] ([id number]) [address], [facility] [address] [place] [address] Erythrocyte distribution width (RBC) [Ratio] 13.4 % Normal 11.5-15.0 [facility] Comment on above: Performed By: #### C BOLIVAR, 29096-6, THYR, CBCA #### [facility] ([id number]) [address], [facility] [address] [place] [address] Hematocrit (Bld) [Volume fraction] 41.7 % Normal 35-47 [facility] Comment on above: Performed By: #### C BOLIVAR 13237-8, THYR, CBCA #### [facility] ([id number]) [address] [address] [place] [address] Hemoglobin (Bld) [Mass/Vol] 14.1 g/dL Normal 11.7-15.5 [facility] Comment on above: Performed By: #### C BOLIVAR, 94691-7, THYR, CBCA #### [facility] ([id number]) [address] [address] [place] [address] Lymphocytes (Bld) [#/Vol] 3.4 10*3/uL Normal 1.0-3.5 [facility] Comment on above: Performed By: #### C BOLIVAR, 57834-8, THYR, CBCA #### [facility] ([id number]) [address] [address] [place] [address] Lymphocytes/100 WBC (Bld) 41.3 % Normal [facility] Comment on above: Performed By: #### C BOLIVAR, 91163-9, THYR, CBCA #### [facility] ([id number]) [address], [address] [place] [address] MCH (RBC) [Entitic mass] 28.5 pg Normal 27-34 [facility] Comment on above: Performed By: #### C BOLIVAR 14813-9, THYR, CBCA #### [facility] ([id number]) [address], [facility] [address] [place] [address] MCHC (RBC) [Mass/Vol] 33.8 g/dL Normal 32-36 [facility] Comment on above: Performed By: #### C BOLIVAR 54485-2, THYR, CBCA #### [facility] ([id number]) [address], [address] [place] [address] MCV (RBC) [Entitic vol] 84 fL Normal 80-100 [facility] Comment on above: Performed By: #### Roberth LUTZ, 99749-0, THYR, CBCA #### [facility] ([id number]) [address], [address] [place] [address] Monocytes (Bld) [#/Vol] 0.4 10*3/uL Normal 0-0.9 [facility] Comment on above: Performed By: #### Roberth LUTZ, 09682-1, THYR, CBCA #### [facility] ([id number]) [address], [address] [place] [address] Monocytes/100 WBC (Bld) 4.4 % Normal [facility] Comment on above: Performed By: #### Roberth LUTZ, 69758-1, THYR, CBCA #### [facility] ([id number]) [address], [address] [place] [address] Neutrophils/100 WBC (Bld) 52.6 % Normal [facility] Comment on above: Performed By: #### C BOLIVAR, 61768-9, THYR, CBCA #### [facility] ([id number]) [address] [address] [place] [address] Platelet mean volume (Bld) [Entitic vol] 7.8 fL Normal 7-12 [facility] Comment on above: Performed By: #### C BOLIVAR, 50325-4, THYR, CBCA #### [facility] ([id number]) [address] [address] [place] [address] Platelets (Bld) [#/Vol] 292 10*3/uL Normal 150-450 [facility] Comment on above: Performed By: #### C BOLIVAR, 60362-5, THYR, CBCA #### [facility] ([id number]) [address] [address] [place] [address] RBC COUNT 4.94 X10E12/L Normal 3.80-5.20 [facility] Comment on above: Performed By: #### C BOLIVAR, 51201-1, THYR, CBCA #### [facility] ([id number]) [address] [address] [place] [address] WBC (Bld) [#/Vol] 8.2 10*3/uL Normal 4.0-11.0 [facility] Comment on above: Performed By: #### C BOLIVAR, 29495-8, THYR, CBCA #### [facility] ([id number]) [address], [address] [place] [address] COMPREHENSIVE METABOLIC PANE Willie 06-18-2023 Albumin [Mass/Vol] 4.1 g/dL Normal 3.2-5.3 [facility] Comment on above: Performed By: #### C BOLIVAR, 43081-5, THYR, CBCA #### [facility] ([id number]) [address], [address] [place] [address] ALP [Catalytic activity/Vol] 110 U/L Normal 39-130 [facility] Comment on above: Performed By: #### C BOLIVAR, 76295-6, THYR, CBCA #### [facility] ([id number]) [address], [address] [place] [address] ALT [Catalytic activity/Vol] 15 U/L Normal 0-31 [facility] Comment on above: Performed By: #### C BOLIVAR, 87600-9, THYR, CBCA #### [facility] ([id number]) [address], [address] [place] [address] Anion gap [Moles/Vol] 9 mmol/L Normal 5-15 [facility] Comment on above: Performed By: #### C BOLIVAR, 05610-1, THYR, CBCA #### [facility] ([id number]) [address], [address] [place] [address] AST [Catalytic activity/Vol] 15 U/L Normal 0-41 [facility] Comment on above: Performed By: #### C BOLIVAR, 07078-2, THYR, CBCA #### [facility] ([id number]) [address], [address] [place] [address] Bilirubin [Mass/Vol] 0.6 mg/dL Normal 0.3-1.2 [facility] Comment on above: Performed By: #### C BOLIVAR, 72162-6, THYR, CBCA #### [facility] ([id number]) [address], [address] [place] [address] Calcium [Mass/Vol] 8.8 mg/dL Normal 8.5-10.5 [facility] Comment on above: Performed By: #### C BOLIVAR, 01959-1, THYR, CBCA #### [facility] ([id number]) [address], [address] [place] [address] Chloride [Moles/Vol] 104 mmol/L Normal 98-109 [facility] Comment on above: Performed By: #### C BOLIVAR 69176-9, THYR, CBCA #### [facility] ([id number]) [address], [facility] [address] [place] [address] CO2 [Moles/Vol] 28 mmol/L Normal 22-32 [facility] Comment on above: Performed By: #### C BOLIVAR 92868-3, THYR, CBCA #### [facility] ([id number]) [address] [address] [place] [address] Creatinine [Mass/Vol] 0.66 mg/dL Normal 0.40-1.00 [facility] Comment on above: Result Comment: METH OD TRACEABLE TO IDMS STANDARD Performed By: #### C BOLIVAR 90357-5, THYR, CBCA #### [facility] ([id number]) [address], [address] [place] [address] eGFR (CKD-EPI) NON-RACE DEPENDENT >90 Normal >59 [facility] Comment on above: Result Comment: Reported eGFR is based on the CKD-EPI 2020 equation that does not use a race coefficient. Performed By: #### C BOLIVAR 81099-0, THYR, CBCA #### [facility] ([id number]) [address], [facility] [address] [place] [address] Glucose [Mass/Vol] 100 mg/dL High 65-99 [facility] Comment on above: Performed By: #### C BOLIVAR 39598-0, THYR, CBCA #### [facility] ([id number]) [address] [address] [place] [address] Potassium [Moles/Vol] 3.8 mmol/L Normal 3.5-5.0 [facility] Comment on above: Performed By: #### C BOLIVAR 97696-8, THYR, CBCA #### [facility] ([id number]) [address], [address] [place] [address] Protein [Mass/Vol] 7.0 g/dL Normal 6.0-8.0 [facility] Comment on above: Performed By: #### Roberth LUTZ, 02366-5, THYR, CBCA #### [facility] ([id number]) [address], [address] [place] [address] Sodium [Moles/Vol] 141 mmol/L Normal 134-146 [facility] Comment on above: Performed By: #### Roberth LUTZ, 38768-8, THYR, CBCA #### [facility] ([id number]) [address], [address] [place] [address] Urea nitrogen [Mass/Vol] 15 mg/dL Normal 5-27 [facility] Comment on above: Performed By: #### Roberth LUTZ, 65691-8, THYR, CBCA #### [facility] ([id number]) [address], [address] [place] [address] Lipid 1996 panelon 4 Cholesterol [Mass/Vol] 151 mg/dL Normal 150-200 [facility] Comment on above: Performed By: #### Roberth LUTZ, 31480-4, THYR, CBCA #### [facility] ([id number]) [address], [address] [place] [address] Cholesterol in HDL [Mass/Vol] 68 mg/dL Normal >39 [facility] Comment on above: Result Comment: HDL <40 mg/dL - High Risk HDL > or = 40mg/dL- Desirable HDL >60 mg/dL - Negative Risk Performed By: #### C BOLIVAR, 57632-1, THYR, CBCA #### [facility] ([id number]) [address] [address] [place] [address] Cholesterol in LDL [Mass/Vol] 52 mg/dL Normal <130 [facility] Comment on above: Result Comment: LDL <100 mg/dL - Desirable LDL >160 mg/dL - High Risk Performed By: #### C BOLIVAR, 49036-0, THYR, CBCA #### [facility] ([id number]) [address] [address] [place] [address] Cholesterol in VLDL [Mass/Vol] 31 mg/dL High 0-30 [facility] Comment on above: Performed By: #### C BOLIVAR, 00810-9, THYR, CBCA #### [facility] ([id number]) [address] [address] [place] [address] CHOLESTEROL:HDL 2.2 Normal 1.0-5.0 [facility] Comment on above: Performed By: #### C BOLIVAR, 63610-4, THYR, CBCA #### [facility] ([id number]) [address] [address] [place] [address] Triglyceride [Mass/Vol] 157 mg/dL High 27-150 [facility] Comment on above: Performed By: #### C BOLIVAR, 17878-3, THYR, CBCA #### [facility] ([id number]) [address] [address] [place] [address] THYROID PROFILEon 06-18-2023 Free T4 [Mass/Vol] 0.85 ng/dL Normal 0.61-1.60 [facility] Comment on above: Performed By: #### C BOLIVAR, 20996-0, THYR, CBCA #### [facility] ([id number]) [address] [address] [place] [address] TSH 2.32 uIU/mL Normal 0.49-4.67 [facility] Comment on above: Performed By: #### C , 13904-6, THYR, CBCA #### [facility] ([id number]) [address] [place] [address] VC CONSULT FOLLOWUPon 2022 VC CONSULT FOLLOWUP Patient: SARA MALDONADO I Exam Date: 09/06/2022 : 1955 Gender:F Ordering : DR PAPA HUNTER M.D. Admission #: [id number] Family : Order #: [id number] CLICK HERE TO VIEW EXAM RADIOLOGY REPORT [...] Herrera M.D. on 09/06/2022 at 14:53 Normal [facility] VC EXT VENOUS LT LIMITEDon 0 09-06-2022 VC EXT VENOUS LT LIMITED Patient: SANDY MALDONADO Exam Date: 09/06/2022 : 1955 Gender:F Ordering : DR PAPA HUNTER M.D. Admission #: [id number] Family : Order #: [id number] CLICK HERE TO VIEW EXAM RADIOLOGY REPORT [...] Herrera M.D. on 09/06/2022 at 15:02 Normal [facility] VC ENDOVENOUS ABL 1ST V LTon 08-31-2022 VC ENDOVENOUS ABL 1ST V LT Patient: SANDY MALDONADO Exam Date: 08/31/2022 : 1955 Gender:F Ordering : DR PAPA HUNTER M.D. Admission #: [id number] Family : Order #: [id number] CLICK HERE TO VIEW EXAM RADIOLOGY REPORT PROCEDURE: VEIN CENTER ENDOVENOUS ABLATION FIRST VEIN LEFT COMPARISON: VC VENOUS REFLUX NERY LMT, 07/06/2022. INDICATIONS: Pain co-occurrent and due to varicose veins of bilateral legs I83.813 OPERATIVE REPORT: The risks and benefits of the procedure had been previously discussed, and were rediscussed at length. Informed written consent was obtained by ut and López Colvin assisted. Time out procedure [...] Waldemar Herrera M.D. on 08/31/2022 at 14:41 [facility] VC COMP CONSULTATIONon 07-06 VC COMP CONSULTATION Patient: DO CHRISTIAN MALDONADO Exam Date: 07/06/2022 : 1955 Gender:F Ordering : DR PAPA HUNTER M.D. Admission #: [id number] Family : Order #: [id number] CLICK HERE TO VIEW EXAM RADIOLOGY REPORT [...] for several years. 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 care home use of continued use of compression stockings 4. Elevated legs and increased physical activity for symptomatic relief Nurse notes, history and physical were reviewed and confirmed, see attached forms. The nurse was present throughout the physical exam and consultation Dictated by: Papa Hunter MD on 07/06/2022 at 12:57 Approved by: Papa Hunter MD on 07/06/2022 at 13:14 Normal [facility] VC VENOUS REFLUX NERY LMTon 0 07-06-2022 VC VENOUS REFLUX NERY LMT Patient: SANDY MALDONADO Exam Date: 07/06/2022 : 1955 Gender:F Ordering : DR PAPA HUNTER M.D. Admission #: [id number] Family : Order #: [id number] CLICK HERE TO VIEW EXAM RADIOLOGY REPORT [...] thrombus. Compressibility: Normal. Flow: Deep venous reflux. Rn Transfer: Mid medial lower leg 4.7 mm with [...] Hunter MD on 07/06/2022 at 12:40 Normal [facility] Vital Signs Date Time Vital Sign Value Performing Clinician Facility 06-14-2023 [id number] Body height 161.3 cm Papa Whitehead MD Work Phone: [facility] [facility] 06-14-2023 09:11-0500 Body mass index (BMI) [Ratio] 34 kg/m2 Papa Whitehead MD Work Phone: [facility] 06-14-2023 09:11-0500 Body temperature 96.49 [degF] Papa Whitehead MD Work Phone: [facility] 06-14-2023 09:11-0500 Body weight 88.45 kg Papa Whitehead MD Work Phone: [facility] 06-14-2023 09:11-0500 Diastolic blood pressure 88 mm[Hg] Papa Whitehead MD Work Phone: [facility] 06-14-2023 09:11-0500 Heart rate 80 /min Papa Whitehead MD Work Phone: [facility] 06-14-2023 09:11-0500 Respiratory rate 16 /min Papa Whitehead MD Work Phone: [facility] 06-14-2023 09:11-0500 Systolic blood pressure 130 mm[Hg] Papa Whitehead MD Work Phone: [facility] Encounters Encounter Date Encounter Type Care Provider Facility Start: 09-24-2023 End: 09-25-2023 ambulatory [facility] Start: 08-13-2023 End: 08-13-2023 ambulatory [facility] Start: 07-10-2023 Refill 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 Work Phone: [facility] Start: 06-18-2023 End: 06-19-2023 ambulatory [facility] Start: 06-14-2023 End: 06-14-2023 ambulatory [facility] Start: 06-14-2023 Encounter for genera l adult medical examination without abnormal findings [facility] Start: 06-14-2023 End: 06-14-2023 Patient encounter procedure Papa Whitehead MD Work Phone: [facility] Comment on above: Routine general medi rajat examination at a health care facility (Primary Dx); Attention deficit hyperactivity disorder (ADHD), predominantly inattentive type; Essential hypertension, benign; BMI 34.0-34.9,adult Start: 06-14-2023 End: 06-14-2023 Patient encounter status [facility] Start: 05-10-2023 Refill Papa hackett MD Work Phone: [facility] Comment on above: [...] Adult BMI Screening Adult BMI Screen ing [facility] [facility] Start: 06-14-2024 Depression Screening Depression Scre ening [facility] [employer] Start: 06-14-2024 Fall Risk Screening Fall Risk Screen ing [facility] [employer] Start: 06-14-2024 Medicare Annual Well ness Visit Medicare Annual Wellness Visit [facility] [facility] Start: 06-14-2024 Tobacco Screening Tobacco Screening [facility] [employer] Start: 03-11-2024 Adult BMI Screening Adult BMI Screen ing [facility] [employer] Start: 12-08-2023 Depression Screening Depression Scre ening [facility] [facility] Start: 12-08-2023 Fall Risk Screening Fall Risk Screen ing [facility] Start: 12-08-2023 Tobacco Screening Tobacco Screening [facility] Start: 08-13-2023 End: 08-13-2023 Patient encounter procedure 08/13/2023 9:15 AM EDT Office Visit [facility] [address] [place] [id number] Papa Whitehead MD [address] [place] [address] [facility] Start: 06-14-2023 End: 06-13-2024 CBC W Auto Differential panel - Blood CBC auto differential Lab Routine Essential hypertension, benign BMI 34.0-34.9,adult Expected: 06/14/2023, Expires: 06/13/2024 [facility] Work Phone: Comment on above: Expected: 06/14/2023 , Expires: 06/13/2024 Start: 06-14-2023 End: 06-13-2024 Comprehensive metabolic 2000 panel - Serum or Plasma Comprehensive metabolic panel Lab Routine Essential hypertension, benign BMI 34.0-34.9,adult Expected: 06/14/2023, Expires: 06/13/2024 [facility] Comment on above: Expected: 06/14/2023 , Expires: 06/13/2024 Start: 06-14-2023 End: 06-13-2024 Lipid 1996 panel - Serum or Plasma Lipid profile Lab Routine Essential hypertension, benign BMI 34.0-34.9,adult Expected: 06/14/2023, Expires: 06/13/2024 [facility] Comment on above: Expected: 06/14/2023 , Expires: 06/13/2024 Start: 06-14-2023 End: 06-13-2024 Thyroid profile includes TSH FT4 Thyroid profile includes TSH FT4 Lab Routine Essential hypertension, benign BMI 34.0-34.9,adult Expected: 06/14/2023, Expires: 06/13/2024 [facility] Comment on above: Expected: 06/14/2023 , Expires: 06/13/2024 Start: 06-14-2023 End: 06-14-2023 Patient encounter procedure 06/14/2023 9:15 AM EST Office Visit [facility] [address] [place] [address] Papa Whitehead MD [address] [place] [address] [facility] Start: 12-28-2022 COVID-19 Vaccine ( season) COVID-19 Vaccine ( season) [facility] Start: 03-18-2022 DTaP,Tdap and Td Vaccines (2 - Td or Tdap) DTaP,Tdap and Td Vaccines (2 - Td or Tdap) [facility] Start: 03-03-2015 Screening for malign ant neoplasm of colon Colonoscopy [facility] Start: 12-23-2005 Administration of varicella zoster vaccine Zoster (Shingles) Vaccine (1 of 2) [facility] Start: 12-23-1973 Adult BMI Follow Up Plan Adult BMI Follow Up Plan [facility] Start: 1955 Medicare Annual Well ness Visit Medicare Annual Wellness Visit [facility] Immunizations Immunization Date Immunization Notes Care Provider [facility] 02-05-2023 Influenza, injectabl e, Madin Hien Canine Kidney, preservative free, quadrivalent Papa Whitehead MD Work Phone: [facility] 01-19-2022 Influenza, injectabl e, Madin Hien Canine Kidney, preservative free, quadrivalent Papa Whitehead MD Work Phone: [facility] 01-18-2021 influenza, injectabl e, quadrivalent, preservative free Papa Whitehead MD Work Phone: [facility] 05-26-2020 COVID-19, mRNA, LNP- S, PF, 100mcg/0.5mL Dose Papa Whitehead MD Work Phone: [facility] 04-28-2020 COVID-19, mRNA, LNP- S, PF, 100mcg/0.5mL Dose Papa Whitehead MD Work Phone: [facility] 01-26-2020 Seasonal, quadrivale nt, recombinant, injectable influenza vaccine, preservative free Papa Whitehead MD Work Phone: [facility] 02-06-2018 influenza virus vacc ine, unspecified formulation Papa Whitehead MD Work Phone: [facility] 02-06-2018 influenza, injectabl e, quadrivalent, preservative free Papa Whitehead MD Work Phone: [facility] 02-24-2014 influenza virus vacc ine, unspecified formulation Papa Whitehead MD Work Phone: [facility] 02-24-2014 influenza, injectabl e, quadrivalent, contains preservative Papa Whitehead MD Work Phone: [facility] 03-18-2012 influenza virus vacc ine, unspecified formulation Papa Whitehead MD Work Phone: [facility] 03-18-2012 influenza, seasonal, injectable Papa Whitehead MD Work Phone: [facility] 03-18-2012 tetanus toxoid, redu tran diphtheria toxoid, and acellular pertussis vaccine, adsorbed Papa Whitehead MD Work Phone: [facility] 04-27-2009 novel influenza-H1N1 -09, all formulations Papa Whitehead MD Work Phone: [facility] 04-27-2009 novel influenza-H1N1 -09, preservative-free, injectable Papa Whitehead MD Work Phone: [facility] 02-22-2009 novel influenza-H1N1 -09, all formulations Papa Whitehead MD Work Phone: [facility] 02-22-2009 novel Influenza-H1N1 -09, live virus for nasal administration Papa Whitehead MD Work Phone: [facility] Payers Date Payer Category Payer Private Health Insurance [facility] REHABILITATION SUPPLEMENT [id number] 2023-Present [phone] [address] [place] [address] [id number] 2023 Unknown [id number] 2021 Medicare MEDICARE MEDICAR E PART A & B [id number] 2021-Present [phone] [address] [place] [address] [id number] 1959 Medicare [id number] 1959 Unknown [id number] 1955 Unknown [id number] 1955 Unknown [id number] 1955 Unknown [id number] .593 1955 Unknown [id number] 1955 Unknown [id number] 1955 Unknown [id number] .1286 1955 Unknown [id number] .1286 1955 Unknown [id number] .1286 1955 Unknown [id number] .[id number] Social History Date Type Detail Facility Start: 04-13-2022 Tobacco smoking status NHIS Ex-smoker [facility] End: 04-29-1969 History of tobacco use Current smoker [facility] End: 04-29-1969 History of tobacco use Cigarette Smoker [facility] Start: 04-13-2022 End: 06-14-2023 Cigarettes smoked current (pack per day) - Reported 1 [facility] Start: 04-13-2022 Tobacco use and exposure Smokeless tobacco non-user [facility] Start: 03-11-2023 End: 06-14-2023 Alcohol intake Current drinker of alcohol (finding) [facility] Start: 04-13-2022 End: 06-14-2023 Social connection and isolation panel [facility] Do you belong to any clubs or organizations such as pentecostal groups, unions, fraternal or athletic groups, or school groups? Yes [facility] Are you now , , , , never or living with a partner? [facility] How often to you hav e a drink containing alcohol? 2-4 times a month [facility] How many standard dr inks containing alcohol do you have on a typical day? 1 or 2 [facility] How often do you hav e 6 or more drinks on 1 occasion? Never [facility] How hard is it for y ou to pay for the very basics like food, housing, medical care, and heating Not hard at all [facility] Do you feel stress - tense, restless, nervous, or anxious, or unable to sleep at night because your mind is troubled all the time - these days [OSQ] Only a little [facility] Start: 12-13-2020 Education 18 [facility] Start: 1955 Sex Assigned At Female [facility] Start: 01-29-2022 Gender identity Identifies as female gender (finding) [facility] Start: 01-29-2022 Sexual orientation Heterosexual (finding) [facility] Note 07-10-2023 Telephone Encounter - Corina Medrano LPN - 07/10/2023 6:23 AM EDT Note Date & Type Note Facility 07-10-2023 Miscellaneous Notes Formattin g of this note might be different from the original. [facility] requesting refill of Premarin documented in this encounter [facility] Telephone encounter Note 07-10-2023 Telephone Encounter - Corina Medrano LPN - 07/10/2023 6:23 AM EDT Note Date & Type Note Facility 07-10-2023 Telephone encount er Note [facility] requesting refill of Premarin [facility] History of Present illness Narrative 06-14-2023 Papa Whitehead MD - 06/14/2023 9:15 AM EST Note Date & Type Note Facility 06-14-2023 History of Present illness Narrative Images from the original note were not included. [address] [facility] [id number] Subjective: Sandy Maldonado is a 67 y.o. female who presents for a Medicare Annual Wellness exam. The following portions of the patient's history were reviewed and updated as appropriate: Health Risk Assessment, allergies, past medical history, past surgical history, social history, family history, and immunization history Accompanied by: self History Provided By: self Language and Other Communication Barriers: Primary Language Spoken: Slovak Highest Level of Education Completed: college graduate [...] Do you have a durable power of business attorney?: (!) No Hearing Assessment Do you [...] Problem List Diagnosis Date Noted Obesity, morbid ([facility]) 05/24/2022 BMI 32.0-32.9,adult 11/27/2017 Essential hypertension, [...] Recheck in 2m [facility] 06-14-2023 Patient Instructions Note Date [...] services: Not applicable [facility] Note 05-10-2023 Telephone Encounter - Corina Medrano LPN - 05/10/2023 1:33 PM EST Note Date & Type Note Facility 05-10-2023 Miscellaneous Notes Formattin g of this note might be different from the original. Patient via MyChart requesting refill of Adderall to [facility] Telephone encounter Note 05-10-2023 Telephone Encounter - Corina Medrano LPN - 05/10/2023 1:33 PM EST Note Date & Type Note Facility 05-10-2023 Telephone encount er Note Patient via [employer]hart requesting refill of Adderall to [facility] Evaluation note Note Date & Type Note Facility Evaluation note Diagnosis Attention deficit hyperactivity disorder (ADHD), predominantly inattentive type documented in this encounter [facility] Evaluation note Note Date & [...] DATE CREATED AUTHOR AUTHOR'S ORGANIZ ATION 09/25/2023 [facility] Reason for Visit (unrecogniz ed section and content) Reason Onset Date Comments Med Refill 05/10/2023 Reason Comments Annual Exam Medicare Wellness Reason Comments Med Refill Care Teams (unrecognized sec tion and content) Maintenance Journeyman Relationship Specialty Start Date End Date Papa Whitehead MD [address] [place] [address] PCP - General Family Medicine 07/24/16 Maintenance Journeyman Relationship Specialty Start Date End Date Papa Whitehead MD [address] [place] [address] PCP - General Family Medicine 07/24/16 Maintenance Journeyman Relationship Specialty Start Date End Date Papa Whitehead MD [address] [place] [address] PCP - General Family Medicine 07/24/16 FOR [...] BE BASED ON THE PRIMARY CLINICAL RECORDS. [employer] [facility]. provides no warranty or guarantee of the accuracy or completeness of information in this document.
[2024-01-31 10:25] VITALS: BP 132/77; PULSE 82; O2SAT 98
== END 2024-01-31 11:02 | disposition home or self-care (01) ==
LOC: VC 10:13
PROVIDERS: PCP Radiology Diagnostic Radiology; Visit Provider Radiology Diagnostic Radiology
DX: I83.813 Varicose veins of bilateral lower extremities with pain (principal)
CPT/HCPCS: 36471

== ENCOUNTER 2024-03-13 10:03 | Outpatient (OUT) | payer MEDICARE, SELFPAY ==
--- NOTE | 2024-03-13 08:58 | VEINCLINIC_ITS ---
Vital Signs 03/13/24 11:10 BP 118/72 BP Location Left Brachial BP Position Sitting BP Cuff Size Adult BP Source Manual Cuff Respiration 16 Pulse 97 H Pulse Source Monitor Pulse Oximetry (%) 96 Oxygen Delivery Method Room Air Varicose Veins Patient in this day for sclerotherapy left leg. Waldemar Quintana MD personally performed the services described in this documentation, as scribed by Mary Workman RN in my presence and it is both accurate and complete. IMary RN, am scribing for, and in the presence of, Dr. Waldemar Herrera and in the presence of the patient. thigh: bilateral (symptoms symmetrical bilaterally), knee: bilateral, calf: bilateral, ankle: bilateral and bates: bilateral aching, cramping and dull 6 4years Worsened in recent months: Yes standing, sitting and walking analgesics (Tylenol), elevating extremities, compression stockings and exercise Reports muscle spasms of leg, fatigue, heaviness, limb pain, edema and leg edema History of lower extremity trauma: No Superficial thrombophlebitis: No Family history of varicose veins: yes (father) Has patient had previous lower extremity venous surgery: No Patient has previously received the following treatment(s) for lower extremity varicose veins: Reports none Does patient have a history of : yes Does patient intend to have future pregnancies: no Has patient had lower extremity venous scan with relux testing: No Support hose used: Yes Problems walking or doing physical activity: Yes How does it affect you: exericse limit decreased due to pain Do you walk much: Yes Do you stand much: Yes Review of Systems ROS Narrative Waldemar Quintana MD personally performed the services described in this documentation, as scribed by Mary Workman RN in my presence and it is both accurate and complete. Mary Quintana RN, am scribing for, and in the presence of, Dr. Waldemar Herrera and in the presence of the patient. Status of ROS 10 or more systems reviewed and unremark able except as noted in history and below Cardiovascular Reports: edema Integumentary/Breast Reports: itching, redness, skin pain and changes in skin color Neurological Reports: weakness in extremities [facility] Medical History (Updated 01/10/24 @ 07:58 by Ashlee Marie) Phlebitis and thrombophlebitis of superficial vessels of left lower extremity ?I80.02 - Phlebitis and thrombophlebitis of superficial vessels of left lower extremity (ICD-10) Varicose veins of bilateral lower extremities with pain ?I83.813 - Varicose veins of bilateral lower extremities with pain (ICD-10) Hypertension ?I10 - Essential (primary) hypertension (ICD-10) Surgical History (Updated 01/31/24 @ 10:57 by López Colvin) S/P sclerotherapy of varicose veins ?Z98.890 - Other specified postprocedural states (ICD-10) ?Z86.79 - Personal history of other diseases of the circulatory system (ICD- 10) S/P sclerotherapy of varicose veins ?Z98.890 - Other specified postprocedural states (ICD-10) ?Z86.79 - Personal history of other diseases of the circulatory system (ICD-10) S/P sclerotherapy of varicose veins ?Z98.890 - Other specified postprocedural states (ICD-10) ?Z86.79 - Personal history of other diseases of the circulatory system (ICD- 10) H/O tubal ligation ?Z98.51 - Tubal ligation status (ICD-10) History of cholecystectomy ?Z90.49 - Acquired absence of other specified parts of digestive tract (ICD- 10) H/O: hysterectomy ?Z90.710 - Acquired absence of both cervix and uterus (ICD-10) Family History (Updated 01/03/24 @ 07:52 by López Colvin) Other Family history of hypertension Family history of stroke Heart disease Pain due to varicose veins of both lower extremities Social History (Updated 01/03/24 @ 07:53 by López Colvin) Within the past year, how often did you have a drink containing alcohol: monthly or less Smoking status: Never smoker Non-prescribed substance use: denies use Meds Home Medications and Allergies Home Medications ?Medication ?Instructions ?Recorded ?Confirmed ?Type conjugated estrogens 0.3 mg tablet 0.3 mg PO DAILY 01/03/24 01/03/24 History (Premarin) dextroamphetamine-amphetamine 5 mg 1.25 mg PO DAILY 01/03/24 01/03/24 History tablet (Adderall) triamterene 37.5 1 cap PO DAILY 01/03/24 01/03/24 History mg-hydrochlorothiazide 25 mg capsule aspirin 325 mg capsule 325 mg PO DAILY 01/10/24 01/10/24 History Allergies Allergy/AdvReac Type Severity Reaction Status Date / Time No Known Drug Allergies Allergy Verified 01/03/24 07:54 Exam Narrative Exam Narrative: Waldemar Quintana MD personally performed the services described in this documentation, as scribed by Mary Workman RN in my presence and it is both accurate and complete. Mary Quintana RN, am scribing for, and in the presence of, Dr. Waldemar Herrera and in the presence of the patient. Constitutional Documenting provider has reviewed patient's vital signs: yes Common normals: oriented x3 Cardio Peripheral pulses: posterior tibial pulses present and dorsalis pedis pulses present Extremity Common normals: normal capillary refill General: calf tenderness and edema Right lower extremity: lower leg Right lower leg: inspection and palpation Left lower extremity: lower leg Left lower leg: inspection and palpation Neuro Common normals: oriented x3 Assessment and Plan Assessment and Plan (1) Varicose veins of bilateral lower extremities with pain: Plan Plan is to follow up for additional sclerotherapy to right leg 04/03/24. Waldemar Quintana MD personally performed the services described in this documentation, as scribed by Mary Workman RN in my presence and it is both accura te and complete. Mary Quintana RN, am scribing for, and in the presence of, Dr. Waldemar Herrera and in the presence of the patient. Procedures Procedure Instructions Procedures sclerotherapy: Risks and benefits of the procedure were discussed at length and informed written consent was obtained.? Time-out procedure was performed and the correct patient and procedure were confirmed.? Staff present during time-out: Mary Workman RN and Waldemar Herrera MD.? Patient prepped and procedure performed in usual sterile fashion. Injections performed by Dr. Herrera and Mary Workman RN Sclerosing Agent:?? 4cc 0.5% Polidocanol Site Injected: left leg Number of Injections: 27 Anesthesia: n/a The patient tolerated the procedure well without complication.? Hemostasis was obtained and thigh-high compression stocking was applied by patient.? Instructed patient to wear stocking for at least 96 hours and sleep with it and only remove for showering.? Will wear stocking for 2 weeks.? The patient verbalizes understanding and states they will comply.? Patient was given post-procedure instructions. Patient was discharged in good condition.? Scheduled to undergo additional injection sclerotherapy on 04/03/24. IWaldemar MD personally performed the services described in this documentation, as scribed by Mary Workman RN in my presence and it is both accurate and complete. IMary RN, am scribing for, and in the presence of, Dr. Waldemar Herrera and in the presence of the patient.
--- NOTE | 2024-03-13 09:01 | W.VEIN ---
Discharge Plan Discharge Disposition: Home, Self-Care Outpatient Diagnostics: VC INJ Sclerosing SOLMULT Vein (Routine) Timeframe: 1 Month Facility: [facility] - Location: [facility]in Center Ordered By: Waldemar Herrera VC Facility EST LMTD (Routine) Timeframe: 1 Month Facility: [facility] - Location: Vein Center Ordered By: Waldemar Herrera Follow Up Appointments: 04/03/24 Plan of Treatment: additional sclerotherapy on Patient Instructions: Polidocanol (By injection) (Jason Cruzthebrandy) Print Language: Maori Discharge Date/Time: 03/13/24 10:35
--- NOTE | 2024-03-13 10:04 | VEIN_ITS ---
[address] [address] Patient Name: SANDY BOBO MRN: [id number] date: 1955 Sex: F Assigned Patient Location: Current Patient Location: Accession/Order Number: [id number] Exam Date: 03/13/2024 10:04 Report Date: 03/15/2024 15:01 At the request of: ASHLEY METZGER Procedure: VC INJ Sclerosing SOLMULT Vein EXAMINATION: VC INJ Sclerosing SOLMULT Vein HISTORY: I83.813 - Varicose veins of bilateral lower extremities w... The risks and benefits of the procedure were explained at length to the patient and informed written consent was obtained. The procedure was performed under sterile technique. The patient's leg was wrapped with Coban and postprocedural verbal and written instructions provided. Mary Workman RN was present and assisted. SCLEROSANT: 2mL 0.5% Polidocanol. VEIN(S) INJECTED: 27 veins in the left leg. VISUALIZATION: Ultrasound was not used to visualize the sclerosant. ANESTHESIA: Supercooled air. COMPLICATIONS: None. Electronically authenticated by: ASHLEY METZGER Date: 03/15/2024 15:01
[2024-03-13 11:10] VITALS: BP 118/72; PULSE 97; O2SAT 96
== END 2024-03-13 10:35 | disposition home or self-care (01) ==
LOC: VC 10:04
PROVIDERS: PCP Radiology Diagnostic Radiology; Visit Provider Radiology Diagnostic Radiology
DX: I83.813 Varicose veins of bilateral lower extremities with pain (principal)
CPT/HCPCS: 36471

== ENCOUNTER 2024-04-03 10:10 | Outpatient (OUT) | payer MEDICARE, SELFPAY ==
--- NOTE | 2024-04-02 15:43 | VEINCLINIC_ITS ---
Vital Signs 04/03/24 10:10 BP 132/76 BP Location Left Brachial BP Position Sitting BP Cuff Size Adult BP Source Manual Cuff Respiration 16 Pulse 60 Pulse Source Monitor Pulse Oximetry (%) 98 Oxygen Delivery Method Room Air Comment The patient's blood pressure is elevated. Varicose Veins Patient in this day for sclerotherapy Waldemar Quintana MD personally performed the services described in this documentation, as scribed by López Colvin RN in my presence and it is both accurate and complete. ILópez RN, am scribing for, and in the presence of, Dr. Waldemar Herrera and in the presence of the patient. thigh: bilateral (symptoms symmetrical bilaterally), knee: bilateral, calf: bilateral, ankle: bilateral and bates: bilateral aching, cramping and dull 6 4years Worsened in recent months: Yes standing, sitting and walking analgesics (Tylenol), elevating extremities, compression stockings and exercise Reports muscle spasms of leg, fatigue, heaviness, limb pain, edema and leg edema History of lower extremity trauma: No Superficial thrombophlebitis: No Family history of varicose veins: yes (father) Has patient had previous lower extremity venous surgery: No Patient has previously received the following treatment(s) for lower extremity varicose veins: Reports none Does patient have a history of : yes Does patient intend to have future pregnancies: no Has patient had lower extremity venous scan with relux testing: No Support hose used: Yes Problems walking or doing physical activity: Yes How does it affect you: exericse limit decreased due to pain Do you walk much: Yes Do you stand much: Yes Review of Systems ROS Narrative Waldemar Quintana MD personally performed the services described in this documentation, as scribed by López Colvin RN in my presence and it is both accurate and complete. López Quintana RN, am scribing for, and in the presence of, Dr. Waldemar Herrera and in the presence of the patient. Status of ROS 10 or more systems reviewed and unremark able except as noted in history and below Cardiovascular Reports: edema Integumentary/Breast Reports: itching, redness, skin pain and changes in skin color Neurological Reports: weakness in extremities [facility] Medical History (Updated 01/10/24 @ 07:58 by Ashlee Bollenbacher) Phlebitis and thrombophlebitis of superficial vessels of left lower extremity ?I80.02 - Phlebitis and thrombophlebitis of superficial vessels of left lower extremity (ICD-10) Varicose veins of bilateral lower extremities with pain ?I83.813 - Varicose veins of bilateral lower extremities with pain (ICD-10) Hypertension ?I10 - Essential (primary) hypertension (ICD-10) Surgical History (Updated 01/31/24 @ 10:57 by López Colvin) S/P sclerotherapy of varicose veins ?Z98.890 - Other specified postprocedural states (ICD-10) ?Z86.79 - Personal history of other diseases of the circulatory system (ICD- 10) S/P sclerotherapy of varicose veins ?Z98.890 - Other specified postprocedural states (ICD-10) ?Z86.79 - Personal history of other diseases of the circulatory system (ICD- 10) S/P sclerotherapy of varicose veins ?Z98.890 - Other specified postprocedural states (ICD-10) ?Z86.79 - Personal history of other diseases of the circulatory system (ICD- 10) H/O tubal ligation ?Z98.51 - Tubal ligation status (ICD-10) History of cholecystectomy ?Z90.49 - Acquired absence of other specified parts of digestive tract (ICD- 10) H/O: hysterectomy ?Z90.710 - Acquired absence of both cervix and uterus (ICD-10) Family History (Updated 01/03/24 @ 07:52 by López Colvin) Other Family history of hypertension Family history of stroke Heart disease Pain due to varicose veins of both lower extremities Social History (Updated 01/03/24 @ 07:53 by López Colvin) Within the past year, how often did you have a drink containing alcohol: monthly or less Smoking status: Never smoker Non-prescribed substance use: denies use Meds Home Medications and Allergies Home Medications ?Medication ?Instructions ?Recorded ?Confirmed ?Type conjugated estrogens 0.3 mg tablet 0.3 mg PO DAILY 01/03/24 01/03/24 History (Premarin) dextroamphetamine-amphetamine 5 mg 1.25 mg PO DAILY 01/03/24 01/03/24 History tablet (Adderall) triamterene 37.5 1 cap PO DAILY 01/03/24 01/03/24 History mg-hydrochlorothiazide 25 mg capsule aspirin 325 mg capsule 325 mg PO DAILY 01/10/24 01/10/24 History Allergies Allergy/AdvReac Type Severity Reaction Status Date / Time No Known Drug Allergies Allergy Verified 01/03/24 07:54 Exam Narrative Exam Narrative: Waldemar Quintana MD personally performed the services described in this documentation, as scribed by López Colvin RN in my presence and it is both accurate and complete. ILópez RN, am scribing for, and in the presence of, Dr. Waldemar Herrera and in the presence of the patient. Constitutional Documenting provider has reviewed patient's vital signs: yes Common normals: oriented x3 Cardio Peripheral pulses: posterior tibial pulses present and dorsalis pedis pulses present Extremity Common normals: normal capillary refill General: calf tenderness and edema Right lower extremity: lower leg Right lower leg: inspection and palpation Left lower extremity: lower leg Left lower leg: inspection and palpation Neuro Common normals: oriented x3 Assessment and Plan Assessment and Plan (1) Varicose veins of bilateral lower extremities with pain: Plan Additional sclerotherapy Waldemar Quintana MD personally performed the services described in this documentation, as scribed by López Colvin RN in my presence and it is both accurate and complete. López Quintana RN, am scribing for, and in the presence of, Dr. Waldemar Herrera and in the presence of the patient. Procedures Procedure Instructions Procedures sclerotherapy: Risks and benefits of the procedure were discussed at length and informed written consent was obtained.? Time-out procedure was performed and the correct patient and procedure were confirmed.? Staff present during time-out: López Colvin RN and Waldemar Herrera MD.? Patient prepped and procedure performed in usual sterile fashion. Injections performed by Dr. Herrera and López Colvin RN Sclerosing Agent:?? 4cc 0.5% Polidocanol Site Injected: right leg Number of Injections: 24 Anesthesia: Supercooled air The patient tolerated the procedure well without complication.? Hemostasis was obtained and thigh-high compression stocking was applied by patient.? Instructed patient to wear stocking for at least 96 hours and sleep with it and only remove for showering.? Will wear stocking for 2 weeks.? The patient verbalizes understanding and states they will comply.? Patient was given post-procedure instructions. Patient was discharged in good condition.? Plan of care complete at this time. Patient to f/u in future as necessary. IWaldemar MD personally performed the services described in this documentation, as scribed by López Colvin RN in my presence and it is both accurate and complete. ILópez RN, am scribing for, and in the presence of, Dr. Waldemar Herrera and in the presence of the patient.
--- NOTE | 2024-04-02 15:48 | P.DS_ITS ---
Discharge Plan Discharge Disposition: Home, Self-Care Outpatient Diagnostics: VC INJ Sclerosing SOLMULT Vein (Routine) Timeframe: 2 Weeks Facility: [facility] - Location: Vein Center Ordered By: Waldemar Herrera Follow Up Appointments: fu in future as necessary Plan of Treatment: additional sclerotherapy Patient Instructions: Polidocanol (By injection) (Asclacya, Varithena) Print Language: Swazi Discharge Date/Time: 04/03/24 11:30
[2024-04-03 10:10] VITALS: BP 132/76; PULSE 60; O2SAT 98
--- NOTE | 2024-04-03 10:11 | VEIN_ITS ---
[address] [address] Patient Name: SANDY BOBO MRN: [id number] date: 1955 Sex: F Assigned Patient Location: Current Patient Location: Accession/Order Number: [id number] Exam Date: 04/03/2024 10:11 Report Date: 04/03/2024 11:51 At the request of: ASHLEY METZGER Procedure: VC INJ Sclerosing SOLMULT Vein EXAMINATION: VC INJ Sclerosing SOLMULT Vein HISTORY: I83.813 - Varicose veins of bilateral lower extremities w... The risks and benefits of the procedure were explained at length to the patient and informed written consent was obtained. The procedure was performed under sterile technique. The patient's leg was wrapped with Coban and postprocedural verbal and written instructions provided. López Colvin RN was present and assisted. SCLEROSANT: 2mL 0.5% Polidocanol. VEIN(S) INJECTED: 24 veins in the right leg. VISUALIZATION: Ultrasound was not used to visualize the sclerosant. ANESTHESIA: Supercooled air. COMPLICATIONS: None. Electronically authenticated by: ASHLEY METZGER Date: 04/03/2024 11:51
== END 2024-04-03 11:30 | disposition home or self-care (01) ==
LOC: VC 10:10
PROVIDERS: PCP Radiology Diagnostic Radiology; Visit Provider Radiology Diagnostic Radiology
DX: I83.813 Varicose veins of bilateral lower extremities with pain (principal)
CPT/HCPCS: 36471